=== PATIENT | female | born 1940 | race Caucasian/White ===

== ENCOUNTER → 2018-11-19 13:54 | Outpatient (CLI) | payer MEDICARE, BC, SELFPAY ==
--- NOTE | 2018-11-19 14:01 | ECHOCS_ITS ---
Reason For Study: AFib Procedure This was a 2D Doppler, Color Flow transthoracic echocardiogram. Technically difficult due to arrhythmia. Contrast injection was performed. Exam performed in department. Left Ventricle Normal LV size. Concentric left ventricular hypertrophy. The estimated ejection fraction is 55 %. Normal diastology for age. No regional wall motion abnormalities noted. Right Ventricle Normal RV size. Normal systolic function. Atria The left atrium is mildly enlarged. Normal right atrium. No doppler evidence for ASD. Mitral Valve There is no mitral valve stenosis. Mild (1+) mitral valve insufficiency. Tricuspid Valve No significant tricuspid stenosis. Trivial tricuspid valve insufficiency. Pulmonary artery systolic pressure is 25 mmHg. Aortic Valve Trisinus/trileaflet aortic valve. There is no aortic stenosis. Mild-Moderate (1-2+) aortic valve insufficiency. Pulmonic Valve There is no pulmonic valvular stenosis. Trivial pulmonic valve insufficiency. Great Vessels Normal aortic root. Pericardium/Pleural No pericardial effusion. Medication 22 gauge I.V. with prn adaptor inserted into right arm. Diluted definity 4ml given slow IV push to enhance endocardial definition. MMode/2D Measurements & Calculations LVIDd: 4.8 cm IVSd: 1.3 cm Ao root diam: 3.8 cm LVIDs: 3.1 cm LVPWd: 1.2 cm LA dimension: 4.5 cm FS: 36.1 % LAV(MOD-bp): 68.9 ml LA A4 area: 22.8 cm2 RA A4 area: 20.5 cm2 LAV(MOD-bp) Indexed: 33.2 ml/m2 LAV(MOD-sp2): 57.5 ml LAV(MOD-sp4): 62.8 ml Doppler Measurements & Calculations MV E max leia: 83.6 cm/sec Ao V2 max: 98.1 cm/sec AI max leia: 448.4 cm/sec Ao max P.9 mmHg AI max P.4 mmHg AI dec slope: 227.9 cm/sec2 AI P1/2t: 576.3 msec LV V1 max: 85.7 cm/sec PA V2 max: 81.5 cm/sec TR max leia: 225.8 cm/sec LV V1 max P.0 mmHg TR max P.4 mmHg Interpretation Summary The study was technically difficult. Diluted definity 4ml given slow IV push to enhance endocardial definition. Concentric left ventricular hypertrophy. The estimated ejection fraction is 55 %. Normal diastology for age. Mild-Moderate (1-2+) aortic valve insufficiency. Mild (1+) mitral valve insufficiency. The study was technically difficult. Ordering Physician: Balwinder Au Referring Physician: Balwinder Au Performed By: Jose Flynn RCS
== END ==
PROVIDERS: Family Provider Family Medicine; PCP Family Medicine; Referring Provider Family Medicine; Visit Provider Family Medicine
DX: I48.91 Unspecified atrial fibrillation (principal); R94.31 Abnormal electrocardiogram [ECG] [EKG]
CPT/HCPCS: 93306; Q9957; A4216; C8929

== ENCOUNTER → 2018-12-02 10:40 | Outpatient (CLI) | payer MEDICARE, BC, SELFPAY ==
[2018-12-02 09:46] VITALS: BMI 39.4
== END ==
PROVIDERS: Family Provider Family Medicine; PCP Family Medicine; Referring Provider Internal Medicine Cardiovascular Disease; Visit Provider Internal Medicine Cardiovascular Disease
DX: R03.0 Elevated blood-pressure reading, without diagnosis of hypertension (principal)
CPT/HCPCS: 93788

== ENCOUNTER → 2018-12-03 10:53 | Outpatient (CLI) | payer MEDICARE, BC, SELFPAY ==
[2018-12-02 09:46] VITALS: BMI 39.4
== END ==
PROVIDERS: Family Provider Family Medicine; PCP Family Medicine; Referring Provider Internal Medicine Cardiovascular Disease; Visit Provider Internal Medicine Cardiovascular Disease
DX: I48.91 Unspecified atrial fibrillation (principal)
CPT/HCPCS: 93225; 93226

== ENCOUNTER → 2018-12-14 06:38 | Outpatient (CLI) | payer MEDICARE, BC, SELFPAY ==
[2018-12-02 09:46] VITALS: BMI 39.4
--- NOTE | 2018-12-14 09:52 | STRESSREP_ITS ---
Stress Test Report Pharmacologic myocardial perfusion stress test. 78-year-old lady with a history of coronary artery disease and atrial fibrillation. Medications: Apixaban atorvastatin losartan metoprolol. Resting EKG demonstrates atrial fibrillation with a controlled ventricular response rate of 94 bpm resting blood pressures 134/82 mmHg. 0.4 mg of re gadenoson was infused per usual protocol followed by rapid intravenous saline flush injection continuous EKG monitoring was performed. The patient maintained atrial fibrillation throughout the recording. At rest there were no ST or T wave changes noted suggest abnormal flow reserve at peak infusion nonspecific ST-T wave changes were noted with no meet the criteria for ischemia. No clinical angina was noted. Resting blood pressures 134/82 mmHg final blood pressures 122/72 mmHg. Myocardial perfusion protocol. 11.6 mCi of technetium 99m sestamibi was injected at rest. 0.4 mg of regadenoson was infused per usual protocol peak infusion 34.3 mCi of technetium 99m sestamibi was injected stress images were obtained stress and rest images are reconstructed and compared in the short axis vertical long horizontal long axis. Gated images were also obtained Perfusion SPECT analysis: Review of the stress images demonstrate normal uptake of tracer noted in all areas of the myocardium. The resting images similarly demonstrate normal uptake of tracer noted in all areas of myocardium. No areas of reversibility are noted suggest ischemia no previous infarct is noted. Gated SPECT analysis: The gated ejection fraction is noted to be 61%. Conclusion: Normal pharmacologic myocardial perfusion stress test. Atrial fibrillation noted. Preserved ejection fraction.
== END ==
PROVIDERS: Family Provider Family Medicine; PCP Family Medicine; Referring Provider Internal Medicine Cardiovascular Disease; Visit Provider Internal Medicine Cardiovascular Disease
DX: I48.91 Unspecified atrial fibrillation (principal); I25.10 Atherosclerotic heart disease of native coronary artery without angina pectoris
CPT/HCPCS: 78452; 93017; A9500; A4216; J2785

== ENCOUNTER → 2019-10-25 09:49 | Outpatient (CLI) | payer MEDICARE, BC, SELFPAY ==
[2019-08-03 07:50] VITALS: BMI 37.9
--- NOTE | 2019-10-25 09:56 | CDU_ITS ---
Reason For Study: Syncope Rt. Velocities/BP Lt. Velocities/BP Prox CCA 135.7/11.5 cm/sec. Prox CCA 89.3/11.3 cm/sec. Mid CCA 83.8/9.1 cm/sec. Mid CCA 69.5/13.5 cm/sec. Dist CCA 69.5/11.3 cm/sec. Dist CCA 55.2/11.3 cm/sec. Prox ICA 65.1/11.3 cm/sec. Prox ICA 82.7/16.8 cm/sec. Mid ICA 73.9/11.3 cm/sec. Mid ICA 76.1/20.1 cm/sec. Dist ICA 82.7/17.9 cm/sec. Dist ICA 80.5/16.8 cm/sec. Rt. ICA/CCA = 1.0. Lt. ICA/CCA = 1.2. Prox ECA 77.2/13.5 cm/sec. Prox ECA 79.4/8 cm/sec. Rt. Vert. 62.9/11.3 cm/sec. Lt. Vert. 77.2/14.6 cm/sec. Right Extracranial There is homogeneous, smooth atherosclerotic plaque noted in the right common carotid artery. There is heterogeneous, irregular atherosclerotic plaque noted in the right internal carotid artery. There is intimal thickening but no significant atherosclerotic plaque noted in the right external carotid artery. Antegrade flow is noted in the right vertebral artery. Left Extracranial There is homogeneous, smooth atherosclerotic plaque noted in the left common carotid artery. There is heterogeneous, irregular atherosclerotic plaque noted in the left internal carotid artery. There is intimal thickening but no significant atherosclerotic plaque noted in the left external carotid artery. Antegrade flow is noted in the left vertebral artery. Procedure Carotid Duplex 62499. Exam performed in department. Interpretation Summary Mild (<50%) stenosis right extracranial internal carotid. Mild (<50%) stenosis left extracranial internal carotid. Flow within the vertebral arteries is antegrade bilaterally. Ordering Physician: Balwinder Au Referring Physician: Balwinedr Au Performed By: Rachana Robbins RVT
== END ==
PROVIDERS: PCP Family Medicine; Referring Provider Family Medicine; Visit Provider Family Medicine
DX: I65.23 Occlusion and stenosis of bilateral carotid arteries (principal); R55 Syncope and collapse
CPT/HCPCS: 93880

== ENCOUNTER 2020-01-06 12:12 | Inpatient (IN) | payer MEDICARE, BC, SELFPAY ==
[2019-08-03 07:50] VITALS: BMI 37.9
[2020-01-06] VITALS (9 sets, daily range): BP systolic 138–185; BP diastolic 74–104; PULSE 73–119; RESP 16–18; TEMP 35.6–37.1; O2SAT 94–99; BMI 32.3; BMI 34.0
--- NOTE | 2020-01-06 12:31 | EKG12_ITS ---
Test Reason : DYSRHYTHMIA Blood Pressure : / mmHG Vent. Rate : 096 BPM Atrial Rate : 105 BPM P-R Int : 000 ms QRS Dur : 134 ms QT Int : 390 ms P-R-T Axes : 000 028 -16 degrees QTc Int : 492 ms Atrial fibrillation Right bundle branch block Abnormal ECG Confirmed by HAYDEN LEYVA, FABRICIO ([id number]), desk editor ROSALIND NAZARIO ([id number]) on 01/10/2020 8:13:10 AM Referred By: ROSELYN Confirmed By:FABRICIO BLKAE MD
--- NOTE | 2020-01-06 12:31 | CT_ITS ---
STUDY: CT BRAIN WITHOUT CONTRAST REASON FOR EXAM: Female, 79 years old. SYNCOPE/HEMATOMA ABOVE RT EYE/ON THINNERS RADIATION DOSAGE (If Supplied By Facility): CTDIvol = ( 44.99 ) mGy, DLP = ( 812.98 ) mGycm TECHNIQUE: Transaxial CT imaging of the brain was performed without administration of intravenous contrast material. Individualized dose optimization techniques were used for this CT. COMPARISON: Comparison is made with prior examination dated July 30, 2010. FINDINGS: There is a 2.6 cm x 1.2 cm hematoma overlying the right frontal bone and right orbit. Normal calvarium. There is mild cerebral atrophy with widening of the extra-axial spaces and ventricular dilatation. There are areas of decreased attenuation within the white matter tracts of the supratentorial brain, consistent with microvascular disease changes. Normal basal ganglia and thalami. Normal brainstem. There is mild cerebellar atrophy. There is no intracranial hemorrhage. There are no findings of an acute ischemic infarction. Atherosclerotic calcification of the cavernous portions of the internal carotid arteries as well as the vertebral arteries. Normal visualized paranasal sinuses. CT/Brain/Head without Contrast IMPRESSION: Chronic involutional changes of the brain. 2.6 cm x 1.2 cm hematoma overlying the right frontal bone and right orbital region. Electronically Signed: Sharad Mercer, at 13:36 EDT , Service support ,
--- NOTE | 2020-01-06 12:54 | ED.VIS.GEN ---
History of Present Illness Chief Complaint: Syncope Narrative: Patient presenting for evaluation secondary to a syncopal episode. Patient has a underlying history of A. fib, she is on Eliquis for anticoagulation. Patient states that she was at the grocery store and was getting close to being finished checking out. She started to feel flushed, and then passed out. She did hit her head, she is unsure if it was the head injury that caused her loss of consciousness or syncope. She currently denies that she has any visual changes numbness weakness nausea or vomiting. She has a large hematoma over the right forehead. Patient denies that there is any preceding chest pain palpitations shortness of breath. Patient does note that she missed her doses of her morning medications today. She denies recent infectious signs or symptoms such as fever cough nausea vomiting or diarrhea. Review of systems otherwise negative. Past Medical History - Allergies and Home Meds Allergies/Adverse Reactions: Allergies Penicillins Adverse Reaction (Verified 01/06/20 12:15) Unknown Primary Care Physician: Balwinder Au MD [Primary Care Provider] - Prior records reviewed: Yes Past Medical History: - - Atrial fibrillation, aortic insufficiency, hypertension, hyperlipidemia Lives: Spouse/ Significant Other Smoking Status: Never smoker Alcohol: None Drugs: None Review of Systems All systems negative except as indicated General: Denies: Chills, Fever, Sweats Eyes: Denies: Visual changes - bilaterally, Diplopia ENT: Denies: Rhinorrhea, Sore throat Cardiovascular: Reports: - - Syncope Respiratory: Denies: Dyspnea, Cough, Dyspnea on exertion Gastrointestinal: Denies: Abdominal pain, Nausea, Vomiting, Diarrhea, Melena, Hematochezia Genitourinary: Denies: Dysuria, Hematuria, Frequency Musculoskeletal: Denies: Back pain, Extremity Pain Skin: Denies: Rash, Wounds Neurological: Reports: Headache Physical Exam Vital Signs/Narrative: Vital Signs Temp Pulse Resp BP Pulse Ox 01/06/20 12:13 96.1 F L 80 18 157/96 H 99 Inital Vital Signs reviewed: Yes General: Well nourished, Well developed, Obese, No Acute Distress Head: Normocephalic, - - Left forehead hematoma noted with bruising, no underlying depressed skull fracture is noted. PRL, EOMI no entrapment. No hyphema. Eyes: Perrl, EOMI ENT: Moist mucous membranes, No rhinorrhea Neck: Supple, Nontender Cardiovascular: Regular rate, No murmurs, Irregular, - - 2+ radial pulses bilaterally symmetric Respiratory: No distress, CTA bilaterally, Chest nontender Abdomen: Soft, Nontender, Nondistended, Normal bowel sounds Back: Nontender, Normal Inspection Extremities: Nontender, No edema Skin: Normal color, No rash Neurological: Alert, Oriented x3, Cranial nerves II-XII grossly intact, Normal Strength, Normal Sensation Psychological: Normal affect, Normal Mood Diagnostic/Tx/Re-eval Clinical Impression(s) from Imaging Studies Brain CT 01/06/20 12:31 IMPRESSION: Chronic involutional changes of the brain. 2.6 cm x 1.2 cm hematoma overlying the right frontal bone and right orbital region. Electronically Signed: Sharad Mercer, at 13:36 EDT , Service support , Chest X-Ray 01/06/20 13:15 IMPRESSION: Mild cardiomegaly. No acute abnormalities. Electronically Signed: Sharad Mercer, at 13:53 EDT , Service support , Laboratory Data 01/06/20 01/06/20 01/06/20 13:00 13:00 13:00 WBC 14.0 H RBC 4.63 Hgb 12.3 Hct 40.5 MCV 87.5 MCH 26.6 L MCHC 30.4 L RDW Std Deviation 52.6 H RDW Coeff of Stacey 16.6 H Plt Count 467 H MPV 9.4 Immature Gran % (Auto) 0.500 Neut % (Auto) 84.4 H Lymph % (Auto) 8.0 L [place] % (Auto) 6.1 Eos % (Auto) 0.4 Baso % (Auto) 0.6 Absolute Neuts (auto) 11.8 H Absolute Lymphs (auto) 1.12 Nucleated RBC % 0 PT 16.0 H INR 1.3 APTT 29.3 Sodium 138 Potassium 4.7 Chloride 107 Carbon Dioxide 25.0 Anion Gap 6 BUN 23 H Creatinine 1.05 H Estim Creat Clear Calc 40.00 Est GFR (MDRD) Af Amer 65 Est GFR (MDRD) Non-Af 54 L BUN/Creatinine Ratio 21.9 H Glucose 166 H Calcium 9.9 Troponin I < 0.015 - EKG Initial EKG Interpretation: - - Atrial fibrillation with a ventricular rate of 96. Right bundle branch block morphology is noted, no evidence of acute ST segment changes or T wave changes, no changes from prior EKG in 2019. - Medical Decision Making Patient presented secondary to a syncopal episode. EKG demonstrates atrial fibrillation with a right bundle branch block that is old, no evidence of acute changes. PA and lateral chest x-ray by my personal review as well as radiology demonstrates mild cardiomegaly no evidence of acute pathology. CT imaging of the brain per radiology found to be negative. CBC demonstrates leukocytosis of 14, chemistry unremarkable troponin was found to be negative. Patient is not low risk per the [place] syncope score, I believe that she requires admission for observation. Patient will be admitted under the hospitalist. ED Disposition - Plan for ED Patient: Disposition: Acute Care Hospital [facility] Diagnosis: Syncope, Atrial fibrillation
--- NOTE | 2020-01-06 13:15 | RAD_ITS ---
STUDY: X-RAY CHEST REASON FOR EXAM: Female, 79 years old. Pt states she fainted and hit head, dizziness, takes HBP medication TECHNIQUE: PA and lateral views of the chest. COMPARISON: None. FINDINGS: EKG electrodes are seen. The lungs are clear and expanded. There is no demonstrated pleural abnormality. There is mild cardiac enlargement. Normal mediastinum and farnaz. Normal visualized pulmonary arteries. There is atherosclerotic tortuosity of the aortic arch and descending thoracic aorta. There are diffuse degenerative changes of the visualized thoracic spine. Normal visualized ribs, clavicles, and shoulders. There is no demonstrated abnormality of the visualized soft tissue structures of the upper abdomen. RAD/Chest PA and Lateral IMPRESSION: Mild cardiomegaly. No acute abnormalities. Electronically Signed: Sharad Mercer, at 13:53 EDT , Service support ,
[2020-01-06 13:22] LABS: Absolute Lymphocyte Count 1.12 X10^3/uL (0.83-4.51); Absolute Neutrophil Count 11.8 X10^3/uL (2.0-7.7); Basophil# 0.08 X10^3/uL; Basophil% 0.6 % (0-1); Eosinophil# 0.06 X10^3/uL; Eosinophils% 0.4 % (0-5); Hematocrit 40.5 % (37-47); Hemoglobin 12.3 g/dL (12.0-15.0); Lymphocyte # 1.12 X10^3/ul (4.0); Mean Corp Hgb Conc 30.4 g/dL (32-36); Mean Corpuscular Hgb 26.6 pg (27.0-32.0); Mean Corpuscular Volume 87.5 fL (81-99); Mean Platelet Vol. 9.4 fl (6.2-12.0); Monocyte# 0.85 X10^3/uL; Monocyte% 6.1 % (0-10); NRBC Flagged by Analyzer 0 % (0-5); Neutrophil # 11.81 X10^3/uL (2.7-7.7); Neutrophil % 84.4 % (47-70); Platelet Count 467 K/mm3 (150-450); RBC Distribution Width CV 16.6 % (11.6-14.6); RBC Distribution Width SD 52.6 fl (35.1-43.9); Red Blood Count 4.63 M/mm3 (4.2-5.4)
[2020-01-06 13:32] LABS: International Normalized Ratio 1.3; Partial Thromboplast Time 29.3 Seconds (24.1-36.2)
[2020-01-06 13:40] LABS: Anion Gap 6 (5-15); BUN 23 mg/dL (7-18); BUN/Creat Ratio 21.9 RATIO (10-20); Calcium,Total 9.9 mg/dL (8.5-10.1); Chloride 107 mmol/L (98-107); Creatinine, Serum 1.05 mg/dL (0.55-1.02); EST Glomerular Filtration Rate 54 mL/min (>60); Est Glom Filt Rate - Afr Amer 65 mL/min (>60); Glucose 166 mg/dL (74-106); Potassium 4.7 mmol/L (3.5-5.1); Sodium Level 138 mmol/L (136-145)
[2020-01-06] MEDS: Losartan Potassium 100 MG Tablet PO ×2 (14:44→19:11)
[2020-01-06] MEDS: Metoprolol(XL)Succ 25 MG Tablet PO ×2 (14:44→19:11)
--- NOTE | 2020-01-06 14:54 | HP.PCM_ITS ---
History of Present Illness Date of Admission: 01/06/20 Chief Complaint: syncope The patient is a 79 year old F presents with syncope. She was at the grocery store when she felt hot then passed out. She struck her head. She states that she did not eat any breakfast this morning nor have any of her medications. This happened around 10:30 AM. Patient states that she has had other syncopal episodes that were similar circumstances where she did not eat breakfast nor have any of her medications. Usually patient is having breakfast and taking her medications in the morning. States that she has been feeling fine otherwise. Patient did have a CAT scan that showed no intracranial process. Patient does have a hematoma over her right forehead. [] Past Medical History Past Medical History (Chronic Problems): Chronic Problems (Last Reviewed 08/03/19 @ 10:08 by Collin Garnett NP-C) New onset atrial fibrillation (Chronic 10/2018) Nonrheumatic aortic (valve) insufficiency (Chronic) Essential (primary) hypertension (Chronic) Hyperlipidemia (Chronic) Medical History: Medical History (Last Reviewed 01/06/20 @ 14:[address] Bautista Lucas, DO) New onset atrial fibrillation (Chronic) Onset Date: 10/2018 I48.91 Nonrheumatic aortic (valve) insufficiency (Chronic) I35.1 Essential (primary) hypertension (Chronic) I10 Hyperlipidemia (Chronic) E78.5 History of breast cancer (Resolved) Z85.3 Chemo Class 2 severe obesity due to excess calories with serious comorbidity and body mass index (BMI) of 35.0 to 35.9 in adult E66.01, Z68.35 Frequent falls R29.6 GERD (gastroesophageal reflux disease) K21.9 Type 2 diabetes mellitus E11.9 Allergies Penicillins Adverse Reaction (Verified 01/06/20 12:15) Unknown Home Medications: Ambulatory Orders Medication Instructions Recorded apixaban 5 mg tablet 5 mg PO BID 11/30/18 atorvastatin 20 mg tablet 20 mg PO QHS 11/30/18 glipizide 5 mg tablet, extended 5 mg PO DAILY 11/30/18 release 24 hr magnesium oxide 400 mg PO DAILY cap 11/30/18 metformin 500 mg tablet,extended 500 mg PO BID tab 11/30/18 release 24hr ranitidine HCl 300 mg capsule 300 mg PO QHS 11/30/18 losartan 100 mg tablet 100 mg PO DAILY #30 tab 12/14/18 metoprolol succinate 25 mg 25 mg PO DAILY #30 tab 12/14/18 tablet,extended release 24 hr Surgical History: Surgical History (Last Reviewed 01/06/20 @ 14:[address] Bautista Lucas, DO) History of mastectomy Z90.10 Hx of cholecystectomy Z90.49 Lives: Spouse/ Significant Other Smoking Status: Never smoker Alcohol: None Drugs: None - *Family History Maternal History Items: - - No heart disease Review of Systems Constitutional: Denies: Anorexia, Chills, Fever, Night Sweats Eyes: Denies: Blurred vision, Double vision HEENT: Denies: Head Aches, Sinus Congestion, Sinus Drainage Cardiovascular: Denies: Chest Pain, Palpitations Respiratory: Denies: Cough, Shortness of breath at rest, Sputum production Gastrointestinal: Denies: Abdominal Pain, Nausea, Vomiting Genitourinary: Denies: Dysuria Musculoskeletal: Denies: Joint Pain, Joint Tenderness Skin: Denies: Dryness, Jaundice Neurological: Denies: Balance problems, Change in Speech Psychiatric: Denies: Anxiety, Depression Comment: All review of systems were negative except as mentioned above in the history of present illness and the other review of systems. VTE Information - Inpt Only VTE Present on Admission: No VTE Mechan Device Prophylaxis: None VTE Pharm Prophylaxis ordered?: No Reason prophylaxis not ordered:: Treatment Not Indicated Patient Problems: Active and Suspected Problems (Last Reviewed 08/03/19 @ 10:08 by Collin Garnett [employer] INSTRUCTOR-C) Syncope (Acute) Atrial fibrillation (Acute) - Physical Exam Vitals/I&O's: Vital Signs Temp Pulse Resp BP Pulse Ox 36.6 C 109 H 18 173/104 H 94 01/06/20 14:46 01/06/20 14:46 01/06/20 14:46 01/06/20 14:46 01/06/20 14:46 Oxygen Delivery Method Room Air Weight: 90.718 kg Body Mass Index (BMI) 32.3 General: Alert, Cooperative, No apparent distress, Well developed, Well nourished HEENT: PERRLA, EOMI, - - Large hematoma over her right eye. Some subtle abrasions. No laceration. Oral: Moist Mucosa, No Gingival or Mucosal Lesions/ Ulcerations Neck: No Nodes, Thyroid Normal Size and Texture Lungs: Clear to auscultation, Normal air movement, No rhonchi, No wheeze, No rales Cardiovascular: Regular rate, Regular Rhythm, Normal S1, Normal S2, No murmurs Abdomen: Bowel Sounds Present, Soft, Non Tender, Non-Distended, No Hepato- splenomegaly Extremities: No edema, No Calf Tenderness Skin: - - Hematoma over the right eye. Superficial abrasions. Musculoskeletal: No Tenderness to Palpation of Joints or Extremities, No Muscle Wasting Neurological: Cranial nerves II-XII grossly intact, Neuro grossly intact, Motor Exam 5/5 strength throughout Psych/Mental Status: Normal Affect, Appropriate Laboratory Results 01/06/20 13:00: WBC 14.0 H, RBC 4.63, Hgb 12.3, Hct 40.5, MCV 87.5, MCH 26.6 L, MCHC 30.4 L, RDW Std Deviation 52.6 H, RDW Coeff of Stacey 16.6 H, Plt Count 467 H, MPV 9.4, Immature Gran % (Auto) 0.500, Neut % (Auto) 84.4 H, Lymph % (Auto) 8.0 L, [place] % (Auto) 6.1, Eos % (Auto) 0.4, Baso % (Auto) 0.6, Absolute Neuts (auto) 11.8 H, Absolute Lymphs (auto) 1.12, Nucleated RBC % 0 01/06/20 13:00: PT 16.0 H, INR 1.3, APTT 29.3 01/06/20 13:00: Sodium 138, Potassium 4.7, Chloride 107, Carbon Dioxide 25.0, Anion Gap 6, BUN 23 H, Creatinine 1.05 H, Estim Creat Clear Calc 40.00, Est GFR (MDRD) Af Amer 65, Est GFR (MDRD) Non-Af 54 L, BUN/Creatinine Ratio 21.9 H, Glucose 166 H, Calcium 9.9, Troponin I < 0.015 EKG reviewed and showed afib with RVR with an incomplete right bundle branch block. Clinical Impression(s) from Imaging Studies Brain CT 01/06/20 12:31 IMPRESSION: Chronic involutional changes of the brain. 2.6 cm x 1.2 cm hematoma overlying the right frontal bone and right orbital region. Electronically Signed: Sharad Mercer, at 13:36 EDT , Service support , Chest X-Ray 01/06/20 13:15 IMPRESSION: Mild cardiomegaly. No acute abnormalities. Electronically Signed: Sharad Mercer, at 13:53 EDT , Service support , Assessment/Plan All Active Problems (Last Reviewed 08/03/19 @ 10:08 by Collin Garnett, AVIS-C) Syncope (Acute) Atrial fibrillation (Acute) History of breast cancer (Resolved) 1. Syncope: [place] to be vasovagal. Perhaps related with patient not having eaten breakfast this morning and perhaps with her not taking her medications. Plan is to monitor her overnight, check an echocardiogram, check orthostatic vital signs. If all is unremarkable then feel the patient could be discharged on the . 2. Right forehead hematoma: Status post syncope. Patient on apixaban for A. fib. They will be held and I recommend holding that for 48hours. Patient advised that the ecchymosis will start to shift and may start going down her face. No indication for evacuation at this time. 3. A. fib: Currently in rapid rate. Patient to receive her metoprolol in the emergency room. Monitor. 4. Diabetes mellitus type 2: Continue with metformin and glipizide. 5. VTE prophylaxis: Observation status and therefore not indicated at this time. 6. Advanced care planning: Discussed with the patient. Patient wishes to be DNR Comfort Care arrest. OBSV E&M: 95136 Initial observation care L3
--- NOTE | 2020-01-06 15:23 | ECHOCS_ITS ---
Reason For Study: Syncope Procedure This was a 2D Doppler, Color Flow transthoracic echocardiogram. The study was technically difficult. Contrast injection was performed. No Strain analysis due to needed use of Definity. Exam performed portable in patient room. Left Ventricle Normal LV size. Moderate concentric left ventricular hypertrophy. The estimated ejection fraction is 60 %. Left ventricular systolic function is normal. Stage 2 diastolic dysfunction. No regional wall motion abnormalities noted. Right Ventricle Normal RV size. Normal systolic function. Atria Normal left atrium. Normal right atrium. Mitral Valve Normal mitral valve. Mild (1+) mitral valve insufficiency. Tricuspid Valve Normal tricuspid valve. Mild (1+) tricuspid valve insufficiency. Pulmonary artery systolic pressure is 30 mmHg. Aortic Valve Trisinus/trileaflet aortic valve. Mild (1+) aortic valve insufficiency. Great Vessels Normal aortic root. The pulmonary artery is normal size. Normal inferior vena cava. Pericardium/Pleural No pericardial effusion. Medication Diluted definity 3ml given slow IV push to enhance endocardial definition. MMode/2D Measurements & Calculations LVIDd: 4.9 cm IVSd: 1.5 cm Ao root diam: 3.9 cm LVIDs: 3.4 cm LVPWd: 1.4 cm LA dimension: 4.2 cm FS: 30.1 % LAV(MOD-bp): 61.6 ml LA A4 area: 18.6 cm2 RA A4 area: 19.0 cm2 LAV(MOD-bp) Indexed: 30.8 ml/m2 LAV(MOD-sp2): 67.2 ml LAV(MOD-sp4): 56.3 ml Time Measurements MV dec time: 0.20 sec Doppler Measurements & Calculations MV E max gilles: 73.6 cm/sec Lat Peak E' Gilles: 9.3 cm/sec Med Peak E' Gilles: 7.7 cm/sec MV A max gilles: 37.7 cm/sec E/E' lat: 7.9 E/E' med: 9.5 MV E/A: 1.9 MV V2 max: 80.9 cm/sec MV P1/2t max gilles: 80.2 cm/sec Ao V2 max: 86.6 cm/sec MV max P.6 mmHg MV P1/2t: 79.3 msec Ao max P.0 mmHg MV V2 mean: 40.8 cm/sec MV dec slope: 296.3 cm/sec2 MV mean P.81 mmHg MVA(P1/2t): 2.8 cm2 MV V2 VTI: 18.8 cm AI max gilles: 392.1 cm/sec LV V1 max: 84.0 cm/sec PA V2 max: 112.7 cm/sec AI max P.5 mmHg LV V1 max P.8 mmHg AI dec slope: 243.5 cm/sec2 AI P1/2t: 471.8 msec TR max gilles: 255.1 cm/sec TR max P.0 mmHg Interpretation Summary Normal LV size. Moderate concentric left ventricular hypertrophy. The estimated ejection fraction is 60 %. Left ventricular systolic function is normal. Stage 2 diastolic dysfunction. Mild (1+) aortic valve insufficiency. Mild (1+) mitral valve insufficiency. Contrast injection was performed. Ordering Physician: Bautista Lucas Referring Physician: Balwinder Au Performed By: Jose Flynn RCS
--- NOTE | 2020-01-06 17:13 | NURSING ---
Unable to complete standing orthostatic bp. Patient became lightheaded.
[2020-01-06] MEDS: metFORMIN HCl 500 MG Tablet PO (17:26)
[2020-01-06] MEDS: Magnesium Oxide 400 MG Tablet PO (19:10)
--- NOTE | 2020-01-06 19:14 | NURSING ---
Refused ice to right orbital area.
[2020-01-06] MEDS: Famotidine 20 MG Tablet 40 MG PO (21:01)
[2020-01-06] MEDS: Atorvastatin Calcium 20 MG Tablet PO (21:01)
[2020-01-07] VITALS (12 sets, daily range): BP systolic 85–162; BP diastolic 63–90; PULSE 75–108; RESP 14–18; TEMP 36.6–36.8; O2SAT 94–97
[2020-01-07 06:19] LABS: Absolute Lymphocyte Count 1.69 X10^3/uL (0.83-4.51); Absolute Neutrophil Count 8.4 X10^3/uL (2.0-7.7); Basophil# 0.08 X10^3/uL; Basophil% 0.7 % (0-1); Eosinophil# 0.19 X10^3/uL; Eosinophils% 1.7 % (0-5); Hematocrit 35.3 % (37-47); Hemoglobin 10.8 g/dL (12.0-15.0); Lymphocyte # 1.69 X10^3/ul (4.0); Lymphocyte % 14.7 % (19-41); Mean Corp Hgb Conc 30.6 g/dL (32-36); Mean Corpuscular Hgb 26.8 pg (27.0-32.0); Mean Corpuscular Volume 87.6 fL (81-99); Mean Platelet Vol. 9.1 fl (6.2-12.0); Monocyte# 1.08 X10^3/uL; Monocyte% 9.4 % (0-10); NRBC Flagged by Analyzer 0 % (0-5); Neutrophil # 8.43 X10^3/uL (2.7-7.7); Neutrophil % 73.2 % (47-70); Platelet Count 418 K/mm3 (150-450); RBC Distribution Width CV 16.8 % (11.6-14.6); Red Blood Count 4.03 M/mm3 (4.2-5.4); White Blood Count 11.5 K/mm3 (4.4-11.0)
[2020-01-07 06:46] LABS: Bedside Glucose 149 mg/dL (70-110)
[2020-01-07] MEDS: metFORMIN HCl 500 MG Tablet PO ×2 (09:20→17:09)
[2020-01-07] MEDS: glipiZIDE XL 5 MG Tablet PO (09:20)
[2020-01-07] MEDS: Losartan Potassium 100 MG Tablet PO (09:21)
[2020-01-07] MEDS: 0.9% Saline Lock 10 ML Syringe IV (09:21)
[2020-01-07] MEDS: Metoprolol(XL)Succ 25 MG Tablet PO (09:21)
[2020-01-07] MEDS: Magnesium Oxide 400 MG Tablet PO (09:21)
[2020-01-07] MEDS: 0.9% Normal Saline 1,000 ML 100 ML IV ×2 (09:30→19:21)
--- NOTE | 2020-01-07 11:00 | CASEMGMT ---
RN CM JEWELER APPRENTICE CM to room to meet with patient for initial transition planning/care coordination assessment. THOMAS REED introduced self and role at [facility]. Pt voices understanding and consents to assessment at this time. Pt resting in bed in no distress at this time. Pt is A/O at this time and answers all questions appropriately. Care providers, pharmacy, and demographics verified/updated at this time. PCP: Dr Au Specialists: Dr Yeung--cardiology Preferred Pharmacy: [facility] Pres[facility] Benef[facility]: None Living Will/HPOA: Does not have either. LNOK: daughter, Miguelina. Son, Balwinder Living Arrangements: Lives alone in 2-story home w/2 steps to enter. FFSU. Independent w/ADL's and IADL's. 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 Transportation: Pt drives. Daughter will take her home @ discharge. DME: States has the following DME: cane--uses as needed, walker--has but does not use, rails/grab bars, hand held shower, medical alert button, glucometer (has but states does not use it) Pt states no need for further DME at this time. HHC/SNF: No history of either. Pt wishes to return home and states has no concerns with going home at time of discharge. Discussed therapy options and pt states may be interested in OP therapy, most likely @ [facility], but she is not sure she wants to go. Pt states she may have some difficulty getting in/out of her truck. Pt made aware of [facility] Van transportation services to [facility] and given their info/contact number. Pt also given script for OP therapy at this time and made aware she can take to any OP therapy/location of her choice if she does decide to go. Pt voices understanding/appreciation. CM to follow for home oxygen needs and any further discharge planning/needs. Pt voices no further concerns/needs at this time. Advised pt to ask for CM if any further questions/concerns/needs arise. Voices understanding. PLAN: Home w/possible OP therapy. She has been given a script. No prescription coverage. Follow for cost of meds @ d/c. Mel MCDUFFIE RN, CM
--- NOTE | 2020-01-07 13:24 | PCM.PN.HOSP ---
<Toribio Dumont - Last Filed: 01/07/20 13:24> Patient Problems: Active and Suspected Problems (Last Reviewed 01/06/20 @ 14:[address] Bautista Lucas DO) Syncope (Acute) Atrial fibrillation (Acute) Reason for Visit: Syncope Subjective: Patient resting comfortably in bed, eating breakfast, no acute issues, tolerating p.o. intake. No fevers or chills. No nausea vomiting or diarrhea. Patient states that she has been doing well lately despite her syncopal episode. She has had similar syncopal episodes in the past when she did not eat or take her morning medications. She has no complaints of palpitations, lightheadedness, dizziness, chest pain, lower extremity edema. Vitals/I&O's: Vital Signs Temp Pulse Resp BP Pulse Ox 97.9 F 84 18 162/80 H 96 01/07/20 09:19 01/07/20 11:03 01/07/20 09:19 01/07/20 09:21 01/07/20 09:19 Oxygen Delivery Method Room Air Weight: 210 lb 12.8 oz Body Mass Index (BMI) 34.0 Orthostatic Vital Signs Start: 01/06/20 16:07 Freq: q24h Status: Active Protocol: Activity Type Activity Date Activity User E-Sign Co-Sign Detail Recorded Client Recorded Date Recorded By Document 01/07/20 03:08 DAVIAN [id number] 01/07/20 03:09 DAVIAN 01/07/20 03:08 Orthostatic Vitals Standing -Blood Pressure (90/60-120/80) 85/63 L -Extremity Use Right Arm -Pulse Rate (60-100) 105 H Sitting -Blood Pressure (90/60-120/80) 158/81 H -Extremity Use Right Arm -Pulse Rate (60-100) 91 Lying -Blood Pressure (90/60-120/80) 131/77 H -Extremity Use Right Arm -Pulse Rate (60-100) 75 Intake and Output for Last 24 Hours 01/05/20 01/06/20 01/07/20 23:59 23:59 23:59 Intake Total 360 / 360 240 / 240 Balance 360 / 360 240 / 240 General: Alert, Oriented x3, Cooperative HEENT: Atraumatic, PERRLA, EOMI, Normocephalic Neck: Supple, No JVD, Negative Carotid Bruits Lungs: Clear to auscultation, Normal air movement Cardiovascular: Regular rate, No murmurs Abdomen: Bowel Sounds Present, Soft, Non Tender Extremities: No edema, Capillary Refill Less than 3 Seconds, - - Bilateral lower extremity varicose veins, diffuse. Skin: No rashes, No breakdown Musculoskeletal: No Tenderness to Palpation of Joints or Extremities Neurological: Cranial nerves II-XII grossly intact Psych/Mental Status: Normal Affect, Appropriate, Alert and oriented to time, place, person, mood and affect Laboratory Results 01/06/20 13:00: PT 16.0 H, INR 1.3, APTT 29.3 01/06/20 13:00: Sodium 138, Potassium 4.7, Chloride 107, Carbon Dioxide 25.0, Anion Gap 6, BUN 23 H, Creatinine 1.05 H, Estim Creat Clear Calc 40.00, Est GFR (MDRD) Af Amer 65, Est GFR (MDRD) Non-Af 54 L, BUN/Creatinine Ratio 21.9 H, Glucose 166 H, Calcium 9.9, Troponin I < 0.015 01/06/20 16:15: Troponin I < 0.015 01/06/20 19:00: Troponin I < 0.015 01/07/20 05:50: WBC 11.5 H, RBC 4.03 L, Hgb 10.8 L, Hct 35.3 L, MCV 87.6, MCH 26.8 L, MCHC 30.6 L, RDW Std Deviation 53.0 H, RDW Coeff of Stacey 16.8 H, Plt Count 418, MPV 9.1, Immature Gran % (Auto) 0.300, Neut % (Auto) 73.2 H, Lymph % (Auto) 14.7 L, [place] % (Auto) 9.4, Eos % (Auto) 1.7, Baso % (Auto) 0.7, Absolute Neuts (auto) 8.4 H, Absolute Lymphs (auto) 1.69, Nucleated RBC % 0 01/07/20 05:55: POC Glucose 149 H Current Medications Acetaminophen (Tylenol) 650 mg PO Q6H PRN PRN PRN Reason: Pain Score 1-10/Temp > 100.7 F Atorvastatin Calcium (Lipitor) 20 mg PO QHS [facility] Last Admin: 01/06/20 21:01 Dose: 20 mg Documented by: Dextrose (D50w Syringe) 0 gm IV X1 PRN; Protocol PRN Reason: Hypoglycemia Famotidine (Pepcid) 40 mg PO QHS [facility] Last Admin: 01/06/20 21:01 Dose: 40 mg Documented by: Glipizide (Glucotrol Xl) 5 mg PO DAILYCM [facility] Last Admin: 01/07/20 09:20 Dose: 5 mg Documented by: Glucagon () 1 mg IM .X1 PRN PRN Reason: Hypoglycemia Sodium Chloride () 1,000 mls @ 100 mls/hr IV .Q10H [facility] Last Admin: 01/07/20 09:30 Dose: 100 mls/hr Documented by: Losartan Potassium (Cozaar) 100 mg PO DAILY [facility] Last Admin: 01/07/20 09:21 Dose: 100 mg Documented by: Magnesium Oxide (Mag-Ox 400) 400 mg PO DAILY [facility] Last Admin: 01/07/20 09:21 Dose: 400 mg Documented by: Metformin [facility] (Glucophage) [facility] Last Admin: 01/07/20 09:20 Dose: 500 mg Documented by: Metoprolol Succinate (Toprol Xl (Beta Gerard)) 25 mg PO DAILY [facility] Last Admin: 01/07/20 09:21 Dose: 25 mg Documented by: Sodium Chloride () 10 - 40 ml IV UD PRN PRN Reason: SALINE FLUSH Last Admin: 01/07/20 09:21 Dose: 10 ml Documented by: STROKE Vital Signs/Narrative: Vital Signs Pulse 01/07/20 11:03 84 Medical Necessity - Tobacco Use Smoking Status: Never smoker Assessment/Plan All Active Problems (Last Reviewed 01/06/20 @ 14:[address] Bautista Lucas, DO) Syncope (Acute) Atrial fibrillation (Acute) 1. Syncope-vasovagal. Marked orthostatic hypotension. Mildly elevated BUN and creatinine. Provide IV fluids. Recheck or this. Provide ALLEN hoses. BMP in a.m. Troponin negative x3. Mild leukocytosis, no evidence of active infection. CT brain with right frontal hematoma, chronic involutional changes. Chest x-ray with mild cardiomegaly. She has significant resting hypertension so I do not feel that decreasing her blood pressure regimen would be warranted at this time. -Echocardiogram demonstrates normal LV size, moderate LVH, EF of 60%, normal LV systolic function, stage II diastolic dysfunction, 1+ LEONORA, 1+ MVI. 2. Type 2 diabetes mellitus-continue glipizide, metformin held. 3. GERD-Pepcid 4. Hypertension-as above, continue home regimen. DVT prophylaxis: SCDs. defer lovenox with significant facial hematoma. Discharge planning: PT SHE aparicio's, likely home in the morning, recheck orthostatic vitals prior to discharge. This patient was seen by Toribio Dumont PA-C under the supervision of Doctor Seema. <Renny Stephenson E - Last Filed: 01/07/20 13:38> Vitals/I&O's: Vital Signs Temp Pulse Resp BP Pulse Ox 97.9 F 84 18 162/80 H 96 01/07/20 09:19 01/07/20 11:03 01/07/20 09:19 01/07/20 09:21 01/07/20 09:19 Oxygen Delivery Method Room Air Weight: 210 lb 12.8 oz Body Mass Index (BMI) 34.0 Orthostatic Vital Signs Start: 01/06/20 16:07 Freq: q24h Status: Active Protocol: Activity Type Activity Date Activity User E-Sign Co-Sign Detail Recorded Client Recorded Date Recorded By Document 01/07/20 03:08 DAVIAN [id number] 01/07/20 03:09 DAVIAN 01/07/20 03:08 Orthostatic Vitals Standing -Blood Pressure (90/60-120/80) 85/63 L -Extremity Use Right Arm -Pulse Rate (60-100) 105 H Sitting -Blood Pressure (90/60-120/80) 158/81 H -Extremity Use Right Arm -Pulse Rate (60-100) 91 Lying -Blood Pressure (90/60-120/80) 131/77 H -Extremity Use Right Arm -Pulse Rate (60-100) 75 Intake and Output for Last 24 Hours 01/05/20 01/06/20 01/07/20 23:59 23:59 23:59 Intake Total 360 / 360 240 / 240 Balance 360 / 360 240 / 240 Laboratory Results 01/06/20 13:00: Sodium 138, Potassium 4.7, Chloride 107, Carbon Dioxide 25.0, Anion Gap 6, BUN 23 H, Creatinine 1.05 H, Estim Creat Clear Calc 40.00, Est GFR (MDRD) Af Amer 65, Est GFR (MDRD) Non-Af 54 L, BUN/Creatinine Ratio 21.9 H, Glucose 166 H, Calcium 9.9, Troponin I < 0.015 01/06/20 16:15: Troponin I < 0.015 01/06/20 19:00: Troponin I < 0.015 01/07/20 05:50: WBC 11.5 H, RBC 4.03 L, Hgb 10.8 L, Hct 35.3 L, MCV 87.6, MCH 26.8 L, MCHC 30.6 L, RDW Std Deviation 53.0 H, RDW Coeff of Stacey 16.8 H, Plt Count 418, MPV 9.1, Immature Gran % (Auto) 0.300, Neut % (Auto) 73.2 H, Lymph % (Auto) 14.7 L, [place] % (Auto) 9.4, Eos % (Auto) 1.7, Baso % (Auto) 0.7, Absolute Neuts (auto) 8.4 H, Absolute Lymphs (auto) 1.69, Nucleated RBC % 0 01/07/20 05:55: POC Glucose 149 H Current Medications Acetaminophen (Tylenol) 650 mg PO Q6H PRN PRN PRN Reason: Pain Score 1-10/Temp > 100.7 F Atorvastatin Calcium (Lipitor) 20 mg PO QHS [facility] Last Admin: 01/06/20 21:01 Dose: 20 mg Documented by: Dextrose (D50w Syringe) 0 gm IV X1 PRN; Protocol PRN Reason: Hypoglycemia Famotidine (Pepcid) 40 mg PO QHS [facility] Last Admin: 01/06/20 21:01 Dose: 40 mg Documented by: Glipizide (Gl[facility]otrol Xl) [facility] Last Admin: 01/07/20 09:20 Dose: 5 mg Documented by: Glucagon () 1 mg IM .X1 PRN PRN Reason: Hypoglycemia Sodium Chloride () 1,000 mls @ 100 mls/hr IV .Q10H [facility] Last Admin: 01/07/20 09:30 Dose: 100 mls/hr Documented by: Losartan Potassium (Cozaar) 100 mg PO DAILY [facility] Last Admin: 01/07/20 09:21 Dose: 100 mg Documented by: Magnesium Oxide (Mag-Ox 400) 400 mg PO DAILY [facility] Last Admin: 01/07/20 09:21 Dose: 400 mg Documented by: Metformin HCl (Glucophage) 500 mg PO BIDCM [facility] Last Admin: 01/07/20 09:20 Dose: 500 mg Documented by: Metoprolol Succinate (Toprol Xl (Beta Gerard)) 25 mg PO DAILY [facility] Last Admin: 01/07/20 09:21 Dose: 25 mg Documented by: Sodium Chloride () 10 - 40 ml IV UD PRN PRN Reason: SALINE FLUSH Last Admin: 01/07/20 09:21 Dose: 10 ml Documented by: STROKE Vital Signs/Narrative: Vital Signs Pulse 01/07/20 11:03 84 Assessment/Plan Hospitalist note: I am seeing this patient in conjunction with Toribio Dumont. I independently seen and examined the patient. Progress note above, laboratory data and imaging studies reviewed and I concur with above treatment plan. Today, patient denies any complaints. Denied vision change, headache, dizziness or lightheadedness. She denied chest pain or shortness of breath. Her orthostatic vitals reviewed, blood pressure dropped significantly other vital signs are stable. - Physical Exam General: Alert, Oriented x3, Cooperative, No apparent distress. HEENT:traumatic, ecchymosis and bruises around the right eye, PERRLA, EOMI. Neck: Supple, No JVD, Negative Carotid Bruits, Trachea Midline, Thyroid Normal. Lungs: Clear to auscultation, Normal air movement, No rhonchi, No wheeze, No rales. Cardiovascular: irregular rate and rhythm, Normal S1, Normal S2, PMI Normal. Abdomen: Bowel Sounds Present, Soft, Non Tender, Non-Distended, No Hepato-splenomegaly. Extremities: No clubbing, No cyanosis, No edema Skin: No rashes, No breakdown Neurological: Cranial nerves are intact, neuro grossly intact Assessment and plan: #1 syncope: Vasovagal with orthostatic hypotension. EKG revealed A. fib, right bundle branch block, no acute changes. Heart rate has been around 100. Troponin is negative. CT scan brain showed right frontal hematoma. CBC and BMP reviewed. Plan to resume IV fluids, PT OT evaluation and treatment, anticipate discharge home tomorrow. #2 A. fib with RVR: Initially, rate was in the 110 upon arrival to ED. Heart rate has been around 100. Continue metoprolol for rate control, keep holding Eliquis for now. #3 closed head trauma/right frontal hematoma: Due to mechanical fall and being on Eliquis. CT scan brain showed no acute intracerebral bleed, revealed right frontal hematoma. Plan to monitor. #4 other chronic medical problems: Stable, continue current medications as above. This note was generated with [employer] dictation software. It may contain incorrect words, spelling, and punctuation that were not noted in checking the note before signing. Inpatient E&M: 34789 Subs Hosp L2
--- NOTE | 2020-01-07 15:23 | NURSING ---
Report given to THOMAS Kendrick at this time.
[2020-01-07] MEDS: Atorvastatin Calcium 20 MG Tablet PO (21:20)
[2020-01-07] MEDS: Famotidine 20 MG Tablet 40 MG PO (21:20)
[2020-01-08] VITALS (8 sets, daily range): BP systolic 118–176; BP diastolic 78–101; PULSE 76–111; RESP 15–20; TEMP 36.6–37; O2SAT 97–98
[2020-01-08] MEDS: 0.9% Normal Saline 1,000 ML 100 ML IV (05:38)
[2020-01-08] MEDS: metFORMIN HCl 500 MG Tablet PO (08:22)
[2020-01-08] MEDS: Losartan Potassium 100 MG Tablet PO (08:22)
[2020-01-08] MEDS: Metoprolol(XL)Succ 25 MG Tablet PO (08:22)
[2020-01-08] MEDS: glipiZIDE XL 5 MG Tablet PO (08:22)
[2020-01-08] MEDS: Magnesium Oxide 400 MG Tablet PO (08:22)
--- NOTE | 2020-01-08 09:05 | DCINST_ITS ---
- Discharge Diagnoses Current Active Problems: Current Active and Chronic Problems (Last Updated 01/07/20 @ 13:[address] Renny Stephenson MD) Syncope (Acute) Atrial fibrillation (Acute) You will use the following diet at home:: Cardiac Your food should be the consistency of: Regular Your liquids should be the consistency of: Regular/Thin Discharge Activity: Return to Normal Activity Additional Instructions: Please have BMP (lab) checked at follow up. Allergies/Adverse Reactions: Allergies Penicillins Adverse Reaction (Verified 01/06/20 12:15) Unknown Medications to take at Discharge apixaban 5 mg tablet 5 mg PO BID 11/30/18 atorvastatin 20 mg tablet 20 mg PO QHS 11/30/18 glipizide 5 mg tablet, extended release 24 hr 5 mg PO DAILY 11/30/18 magnesium oxide 400 mg PO DAILY cap 11/30/18 metformin 500 mg tablet,extended release 24hr 500 mg PO BID tab 11/30/18 ranitidine HCl 300 mg capsule 300 mg PO QHS 11/30/18 losartan 100 mg tablet 100 mg PO DAILY #30 tab 12/14/18 metoprolol succinate 25 mg tablet,extended release 24 hr 25 mg PO DAILY #30 tab 12/14/18 Primary Care Physician: Balwinder Au MD [Primary Care Provider] - Please follow up with your Primary Care Physician in: 1 week Test Results: Test results from this visit will be discussed in further detail at your follow- up appointment, if applicable. Proposed Discharge Date: 01/08/20
--- NOTE | 2020-01-08 14:32 | PCM.DC.SUM ---
<Toribio Dumont - Last Filed: 01/08/20 14:32> Discharge Date and Diagnosis Date of Admission: 01/06/20 Date of Discharge: 01/08/20 - Primary Discharge Diagnosis Acute Problems: Syncope, orthostatic hypotension, 2/2 dehydration Facial hematoma 2/2 fall T2DM GERD HTN - Secondary Discharge Diagnosis Chronic Problems: Chronic Problems (Last Updated 01/07/20 @ 13:[address] Rneny Stephenson MD) New onset atrial fibrillation (Chronic 10/2018) Nonrheumatic aortic (valve) insufficiency (Chronic) Essential (primary) hypertension (Chronic) Hyperlipidemia (Chronic) History of breast cancer (Chronic) Chemo Hospital Course and Treatment Imaging Results: CT/Brain/Head without Contrast IMPRESSION: Chronic involutional changes of the brain. 2.6 cm x 1.2 cm hematoma overlying the right frontal bone and right orbital region. Operations: None Procedures: 2-D Echocardiogram Summary of Care Provided: Hospital course: The patient is a 79 year old F with past medical history as above who presented to the emergency room with syncope. The patient was at the grocery store, felt hot, passed out, struck her head. She noted she did not eat any breakfast and had not taken any of her medications that morning. She came to the emergency room and had a CT showing a right frontal bone hematoma and she did indeed have a large bruise on the right side of her face however minimal pain. Eliquis was held for hematoma. White blood cell count was elevated at 14,000 and BUN and creatinine were mildly elevated. Patient was admitted for syncope. Her orthostatic vitals were markedly abnormal. She was given IV fluids as she was felt to be dehydrated. Troponin was negative x3. An echocardiogram was obtained the following day which showed results as above, EF 60%, normal LV systolic function, stage II diastolic dysfunction, 1+ LEONORA and MVI. Patient symptoms were resolved the next day. On the day of discharge her orthostatic vitals were negative. Patient was placed back on her normal home medication regimen, she will resume Eliquis tomorrow. She was discharged home in stable condition. She will need follow-up with her PCP in 1 to 2 weeks. This patient was seen by Toribio Dumont PA-C under the supervision of Doctor Stephenson. [] - Physical Exam Vitals/I&O's: Vital Signs Temp Pulse Resp BP Pulse Ox 98.3 F 80 15 136/82 H 97 01/08/20 11:05 01/08/20 11:05 01/08/20 11:05 01/08/20 11:05 01/08/20 11:05 Oxygen Delivery Method Room Air Weight: 210 lb 12.8 oz Body Mass Index (BMI) 34.0 Orthostatic Vital Signs Start: 01/06/20 16:07 Freq: q24h Status: Active Protocol: Activity Type Activity Date Activity User E-Sign Co-Sign Detail Recorded Client Recorded Date Recorded By Document 01/08/20 05:28 CM [id number] 01/08/20 05:32 CM 01/08/20 05:28 Orthostatic Vitals Standing -Blood Pressure (90/60-120/80) 162/93 H -Extremity Use Right Arm -Pulse Rate (60-100) 103 H Sitting -Blood Pressure (90/60-120/80) 156/101 H -Extremity Use Right Arm -Pulse Rate (60-100) 95 Lying -Blood Pressure (90/60-120/80) 138/86 H -Extremity Use Right Arm -Pulse Rate (60-100) 101 H Intake and Output for Last 24 Hours 01/06/20 01/07/20 01/08/20 23:59 23:59 23:59 Intake Total 360 / 360 1725 / 1725 1000 / 1000 Balance 360 / 360 1725 / 1725 1000 / 1000 General: Alert, Oriented x3, Cooperative HEENT: Atraumatic, PERRLA, EOMI, Normocephalic Oral: - - right forehead hematoma unchanged Neck: Supple, No JVD, Negative Carotid Bruits Lungs: Clear to auscultation, Normal air movement Cardiovascular: Regular rate, No murmurs Abdomen: Bowel Sounds Present, Soft, Non Tender Extremities: No edema, Capillary Refill Less than 3 Seconds Skin: No rashes, No breakdown Musculoskeletal: No Tenderness to Palpation of Joints or Extremities Neurological: Cranial nerves II-XII grossly intact Psych/Mental Status: Normal Affect, Appropriate, Alert and oriented to time, place, person, mood and affect Discharge Diet: Low fat/ Low Cholesterol, 2000 mg Sodium Diet Discharge Activity: Return to Normal Activity Home Medications: Medications to take at Discharge apixaban 5 mg tablet 5 mg PO BID 11/30/18 atorvastatin 20 mg tablet 20 mg PO QHS 11/30/18 glipizide 5 mg tablet, extended release 24 hr 5 mg PO DAILY 11/30/18 magnesium oxide 400 mg PO DAILY cap 11/30/18 metformin 500 mg tablet,extended release 24hr 500 mg PO BID tab 11/30/18 ranitidine HCl 300 mg capsule 300 mg PO QHS 11/30/18 losartan 100 mg tablet 100 mg PO DAILY #30 tab 12/14/18 metoprolol succinate 25 mg tablet,extended release 24 hr 25 mg PO DAILY #30 tab 12/14/18 Primary Care Physician: Balwinder Au MD [Primary Care Provider] - Please follow up with your Primary Care Physician in: 1 week Disposition: Home Minutes spent on discharge:: 35 Patient Condition:: Stable Medical Necessity - Tobacco Use Smoking Status: Never smoker Meaningful Use Info Meaningful Use Diagnoses (Choose all that apply): None applicable <Renny Stephenson - Last Filed: 01/09/20 09:45> Discharge Date and Diagnosis - Secondary Discharge Diagnosis Chronic Problems: Chronic Problems (Last Updated 01/07/20 @ 13:[address] Renny Stephenson MD) New onset atrial fibrillation (Chronic 10/2018) Nonrheumatic aortic (valve) insufficiency (Chronic) Essential (primary) hypertension (Chronic) Hyperlipidemia (Chronic) History of breast cancer (Chronic) Chemo Hospital Course and Treatment Summary of Care Provided: Hospitalist note: This note is for encounter on January 08, 2020. Discharge summary above reviewed and I concur with above discharge and treatment plan. Patient presented to the emergency room because of syncopal episode with closed head trauma and right eye ecchymosis. This syncope attributed to vasovagal syncope. EKG revealed A. fib, right bundle branch block without acute segment changes. Troponin was negative. CT scan brain showed right frontal hematoma. Initially, patient was in A. fib with RVR. Eliquis held because of the closed head trauma. Routine blood work was remarkable for leukocytosis which attributed to stress, improved. Patient was found to have orthostatic hypotension. She was treated with IV fluids and her blood pressure improved. She started having this ecchymosis and bruise around the right eye because of the trauma. Eliquis held. Her pro time was 16 and INR was 1.3. 2D echocardiogram revealed normal LV size and function, ejection fraction was 60%, moderate LVH, stage II diastolic dysfunction. After IV fluid therapy, patient's blood pressure improved. Repeat orthostatic vitals were normal. Her resting blood pressure was slightly on the higher side. Patient discharged home in a stable medical condition, instructed to resume taking Eliquis tomorrow January 09, 2020, continued on her other previous home medications without any changes, recommended from with PCP in 1 week. - Physical Exam General: Alert, Oriented x3, Cooperative, No apparent distress. HEENT:traumatic, ecchymosis and bruises around the right eye, PERRLA, EOMI. Neck: Supple, No JVD, Negative Carotid Bruits, Trachea Midline, Thyroid Normal. Lungs: Clear to auscultation, Normal air movement, No rhonchi, No wheeze, No rales. Cardiovascular: irregular rate and rhythm, Normal S1, Normal S2, PMI Normal. Abdomen: Bowel Sounds Present, Soft, Non Tender, Non-Distended, No Hepato-splenomegaly. Extremities: No clubbing, No cyanosis, No edema Skin: No rashes, No breakdown Neurological: Cranial nerves are intact, neuro grossly intact. Vital signs are stable. This note was generated with [employer] dictation software. It may contain incorrect words, spelling, and punctuation that were not noted in checking the note before signing. - Physical Exam Vitals/I&O's: Vital Signs Temp Pulse Resp BP Pulse Ox 98.3 F 80 15 136/82 H 97 01/08/20 11:05 01/08/20 11:05 01/08/20 11:05 01/08/20 11:05 01/08/20 11:05 Oxygen Delivery Method Room Air Weight: 210 lb 12.8 oz Body Mass Index (BMI) 34.0 Orthostatic Vital Signs Start: 01/06/20 16:07 Freq: q24h Status: Active Protocol: Activity Type Activity Date Activity User E-Sign Co-Sign Detail Recorded Client Recorded Date Recorded By Document 01/08/20 05:28 CM [id number] 01/08/20 05:32 CM 01/08/20 05:28 Orthostatic Vitals Standing -Blood Pressure (90/60-120/80) 162/93 H -Extremity Use Right Arm -Pulse Rate (60-100) 103 H Sitting -Blood Pressure (90/60-120/80) 156/101 H -Extremity Use Right Arm -Pulse Rate (60-100) 95 Lying -Blood Pressure (90/60-120/80) 138/86 H -Extremity Use Right Arm -Pulse Rate (60-100) 101 H Intake and Output for Last 24 Hours 01/06/20 01/07/20 01/08/20 23:59 23:59 23:59 Intake Total 360 / 360 1725 / 1725 1000 / 1000 Balance 360 / 360 1725 / 1725 1000 / 1000 Disposition: Home Minutes spent on discharge:: 32 Patient Condition:: Stable Meaningful Use Info Meaningful Use Diagnoses (Choose all that apply): None applicable Inpatient E&M: 12966 Disch Hosp
== END 2020-01-08 11:27 | disposition home or self-care (01) | DRG 312 ==
LOC: ED 14:22 → PCU 14:54
PROVIDERS: Emergency Provider Emergency Medicine; PCP Family Medicine; Visit Provider Hospitalist
DX: I95.1 Orthostatic hypotension (principal); I48.20 Chronic atrial fibrillation, unspecified; E86.0 Dehydration; R29.6 Repeated falls; S00.83XA Contusion of other part of head, initial encounter; W01.10XA Fall on same level from slipping, tripping and stumbling with subsequent striking against unspecified object, initial encounter; Y93.9 Activity, unspecified; Y92.512 Supermarket, store or market as the place of occurrence of the external cause; Y99.9 Unspecified external cause status; I35.1 Nonrheumatic aortic (valve) insufficiency; E11.9 Type 2 diabetes mellitus without complications; I10 Essential (primary) hypertension; E78.5 Hyperlipidemia, unspecified; K21.9 Gastro-esophageal reflux disease without esophagitis; E66.01 Morbid (severe) obesity due to excess calories; Z68.35 Body mass index [BMI] 35.0-35.9, adult; Z79.01 Long term (current) use of anticoagulants; Z79.84 Long term (current) use of oral hypoglycemic drugs; Z79.899 Other long term (current) drug therapy
CPT/HCPCS: 36415; 70450; 71046; 80048; 82962; 84484; 85025; 85610; 85730; 93005; 93306; 97161; 97166; 99285; J7030; Q9957; A4216; C8929

== ENCOUNTER 2021-02-04 09:09 | Emergency (ER) | payer MEDICARE, BC, SELFPAY ==
[2020-02-09 14:05] VITALS: BMI 37.5
[2021-02-04 09:09] VITALS: BP 152/83; PULSE 85; RESP 16; TEMP 36.4; O2SAT 99; BMI 35.5
--- NOTE | 2021-02-04 09:15 | CT_ITS ---
STUDY: CT BRAIN WITHOUT CONTRAST REASON FOR EXAM: Female, 80 years old. head trauma RADIATION DOSAGE (If Supplied By Facility): CTDIvol = ( 44.99 ) mGy, DLP = ( 779.24 ) mGycm TECHNIQUE: Transaxial CT imaging of the brain was performed without administration of intravenous contrast material. Individualized dose optimization techniques were used for this CT. COMPARISON: 01/06/20 FINDINGS: Large left frontal scalp hematoma. Normal calvarium. Mild atrophy. Ischemic white matter changes. Normal basal ganglia and thalami. Normal brainstem. Normal cerebellum. There is no intracranial hemorrhage. There are no findings of an acute ischemic infarction. Normal visualized paranasal sinuses. CT/Brain/Head without Contrast IMPRESSION: Large left frontal scalp hematoma but no intracranial hemorrhage. Electronically Signed: Leonard Chowdary MD at 10:55 EDT Tel , Service support ,
--- NOTE | 2021-02-04 09:21 | ED.VIS.FALL ---
HPI HPI - Fall History of Present Illness Chief Complaint: Fall Informant: patient Occured/Mechanism Occurred: Today Usually ambulates: Without assistance Pain/Injury Pain Location: head and face Current Severity: Mild Maximum Severity: Mild Associated Symptoms Associated Symptoms: Negative for Parasthesias, Weakness, Loss of function, Inability to ambulate, Loss of consciousness and Amnesia Narrative Narrative: 80-year-old female history of atrial fibrillation on the blood thinner Eliquis. Also diabetic and history of breast cancer with mastectomy. Today she was doing her laundry she bent over lost her balance fell striking her face on a ramp that she has in her home. She denies any LOC. She denies any neck pain. She has bruising the left side of her face she did have bleeding from her nose which is since resolved. She also hit her elbows and her left hand. She denies any recent illness. No nausea, vomiting or diarrhea. She denies any headache or neck pain. She lives alone. Prior similar symptoms: No Recent Illness/Hospitalization: No PFSH PFS Medical History (Updated 02/04/21 @ 10:[address] Luke Paiz MD) Class 2 severe obesity due to excess calories with serious comorbidity and body mass index (BMI) of 35.0 to 35.9 in adult Essential (primary) hypertension Frequent falls GERD (gastroesophageal reflux disease) History of breast cancer Hyperlipidemia New onset atrial fibrillation (10/2018) Orthostatic hypotension (01/06/20) Persistent atrial fibrillation Right bundle branch block (RBBB) Syncope (01/06/20) Type 2 diabetes mellitus Home Medications apixaban 5 mg tablet 5 mg PO BID 11/30/18 [History Last Taken 01/05/20] atorvastatin 20 mg tablet 20 mg PO QHS 11/30/18 [History Last Taken 01/05/20] glipizide 5 mg tablet, extended release 24 hr 5 mg PO DAILY 11/30/18 [History Last Taken 01/05/20] magnesium oxide 400 mg PO DAILY cap 11/30/18 [History Last Taken 01/05/20] metformin 500 mg tablet,extended release 24hr 500 mg PO BID tab 11/30/18 [History Last Taken 01/05/20] ranitidine HCl 300 mg capsule 300 mg PO QHS 11/30/18 [History Last Taken 01/05/20] metoprolol succinate 25 mg tablet,extended release 24 hr 25 mg PO DAILY #30 tab 12/14/18 [Rx Last Taken 01/05/20] diltiazem HCl 120 mg PO DAILY 02/04/21 [History Last Taken Unknown] furosemide 20 mg PO DAILY 02/04/21 [History Last Taken Unknown] losartan 50 mg PO DAILY 02/04/21 [History Last Taken Unknown] potassium chloride 10 meq PO DAILY 02/04/21 [History Last Taken Unknown] Allergy/AdvReac Type Severity Reaction Status Date / Time Penicillins AdvReac Unknown Verified 02/04/21 09:17 Surgical History History of mastectomy Hx of cholecystectomy Social History Smoking Status: Never smoker ROS ROS ED ROS Narrative Patient denies recent illness. Review of Systems ROS Unobtainable: Denies due to encephalopathy Constitutional Constitutional ED: Denies chills or fever(s) Eyes Eyes: Denies change in vision ENT ENT ED: Denies ear pain Cardiovascular Cardiovascular: Denies chest pain Respiratory/Chest Respiratory/Chest: Denies cough or dyspnea Gastrointestinal Gastrointestinal: Denies abdominal pain, diarrhea, nausea or vomiting Genitourinary Genitourinary ED: Denies dysuria Musculoskeletal Musculoskeletal: Denies myalgias Integumentary Denies rash Neurologic Neurologic: Denies headache(s) Psychiatric Psychiatric: Denies depression Endocrine Endocrinology: Denies polyuria Hematologic/Lymphatic Hematologic/Lymphatic: Denies easy bruising Allergic/Immunologic Allergic/Immunologic ED: Denies urticaria EXAM Physical Exam Narrative Exam Narrative: Older female no acute distress. Vital signs stable afebrile. Heart rate 85. Blood pressure 152/83. She does not look septic or toxic. HEENT exam pupils round reactive light extra motions are intact. Patient has a moderate sized hematoma to her left forehead. Also mild swelling and tenderness to the bridge of her nose. There is no active bleeding from her nose or any lacerations. She is able to open close her mouth. Her scalp is nontender without other hematomas. C-spine nontender. Trachea midline. Lungs clear to auscultation. Heart regular rhythm rate of 80. Chest wall nontender. Abdomen soft nontender. Pelvic girdle intact. There is no shortening or rotation either hips are nontender. Back nontender no bruising to her back. She can move her extremities. She has mild bruising to both elbows and mild bruising on the knuckles of her left hand. There is no bony deformity. She has full range of motion to her shoulders, elbows and wrists. She is able to open and close her hands. She is able to flex and extend both her hips knees ankles and feet. There is stool on her pants. Neurologically she is awake and alert with no focal motor deficits. Const Vital Signs: 02/04/21 09:09 Temperature 97.5 F L Temperature Source Temporal Pulse Rate 85 Respiratory Rate 16 Respiratory Effort Normal Non-Labored Respiratory Depth Normal Respiratory Pattern Normal Blood Pressure 152/83 H Blood Pressure Mean 106 Pulse Ox 99 Oxygen Delivery Method Room Air HEENT Reports normocephalic HEENT Narrative: Left facial wall bruising primarily at the forehead and around the left eye. Mildly tender. trauma and tenderness; Negative for atraumatic Eyes PERRL and EOMs intact bilaterally Neck full ROM, no lymphadenopathy and supple General: Negative for tenderness Chest Wall inspection of chest normal and palpation of chest normal Resp normal respiratory effort, no retractions and clear to auscultation bilaterally Auscultation: Negative for rales, rhonchi or wheezes Cardio regular rate, regular rhythm, S1 normal heart sound, S2 normal heart sound and no murmurs GI non-tender, non-distended and no masses Auscultation: normoactive bowel sounds Palpation: soft Back/Spine no CVA tenderness General Back: Negative for CVA tenderness Cervical Spine: Negative for cervical spine tenderness Thoracic Spine / Upper Back: Negative for thoracic spinal tenderness Lumbar Spine / Lower Back: Negative for lumbar spinal tenderness Extremity normal to inspection Extremity Narrative: Except mild bruising to both elbows and bruising mild abrasion to dorsum of left hand. However has normal range of motion. Nontender. No deformity. Neuro oriented x3, moves all extremities and no focal motor deficits Jordy Coma Scale: document GCS findings Spontaneous Obeys Commands Oriented 15 Sensorium / Orientation: alert, oriented to person, oriented to place and oriented to time; Negative for orientation impaired, confused, lethargic or stuporous Psych mental status grossly normal Skin Skin Narrative: Bruising. Abrasion left hand. Hematoma left forehead. Lesions: no lesions Rashes: no rashes MDM MDM MDM Narrative Medical decision making narrative: Older female lives alone fell at home on Eliquis. She has a significant hematoma to her left forehead and around the left eye which will need a CAT scan. Going to check screening labs on the patient. Otherwise her exam has some contusions and abrasions but no other significant acute abnormalities. Repeat exam patient is doing well at 10:49 AM. I went over test results with her and family. We are just waiting for the official radiology interpretation of the CAT scan. I did review the film I do not see any signs of acute intracranial hemorrhage. She does have significant soft tissue swelling on her left forehead and eye consistent with a hematoma on exam. Lab Data Attestation: I reviewed the patient's lab results. Lab results narrative: White count 11.9. Hemoglobin 12.4. Electrolytes normal gap 10. Normal creatinine. Normal glucose. Labs: Laboratory Results - last 24 hr 02/04/21 02/04/21 09:30 09:30 WBC 11.9 H RBC 4.49 Hgb 12.4 Hct 40.5 MCV 90.2 MCH 27.6 MCHC 30.6 L RDW Std Deviation 56.5 H RDW Coeff of Stacey 17.2 H Plt Count 428 MPV 8.9 Immature Gran % (Auto) 0.400 Neut % (Auto) 81.0 H Lymph % (Auto) 9.8 L [place] % (Auto) 7.1 Eos % (Auto) 1.1 Baso % (Auto) 0.6 Absolute Neuts (auto) 9.7 H Absolute Lymphs (auto) 1.17 Nucleated RBC % 0 Sodium 138 Potassium 3.9 Chloride 105 Carbon Dioxide 23.0 Anion Gap 10 BUN 18 Creatinine 1.02 Estim Creat Clear Calc 40.49 Est GFR (MDRD) Af Amer 67 Est GFR (MDRD) Non-Af 55 L BUN/Creatinine Ratio 17.6 Glucose 190 H Calcium 9.8 Radiography Diagnostic Testing: Radiology Impression Brain CT 02/04/21 09:15 IMPRESSION: Large left frontal scalp hematoma but no intracranial hemorrhage. Electronically Signed: Leonard Chowdary MD at 10:55 EDT Tel , Service support , Reviewed and agree with radiologist interpretation of the CAT scan of the brain. Discharge Plan Triage Chief Complaint: Fall ED Provider: Luke Paiz Dx/Rx/DC Orders Clinical Impression: Fall, Contusion of face, Head injury Instructions: Bruises (Contusions), ED Head Injury (Adult) Prescriptions: No Action ranitidine HCl 300 mg capsule 300 mg PO QHS RF: 0 magnesium oxide 400 mg capsule 400 mg PO DAILY RF: 0 glipizide 5 mg tablet extended release 24hr 5 mg PO DAILY RF: 0 metformin 500 mg tablet extended release 24hr 500 mg PO BID RF: 0 Eliquis 5 mg tablet 5 mg PO BID RF: 0 atorvastatin 20 mg tablet 20 mg PO QHS RF: 0 metoprolol succinate 25 mg tablet extended release 24 hr 25 mg PO DAILY Qty: 30 RF: 11 potassium chloride 10 mEq tablet extended release 10 meq PO DAILY RF: 0 diltiazem HCl 120 mg capsule,extended release 24 hr 120 mg PO DAILY RF: 0 furosemide 20 mg Tablet 20 mg PO DAILY RF: 0 losartan 100 mg tablet 50 mg PO DAILY RF: 0 Primary Care Provider: Balwinder Au Referrals: Balwinder Au MD [Primary Care Provider] - As Needed Activity Restrictions/Additional Instructions: Ice to all your bruises primarily on your face and elbows and hand. Hold your blood thinner the Eliquis for the next 2 days. You may restart it on Friday. Return if severe headache, vomiting or not acting herself. These are signs of a delayed bleeding that would develop in your brain. Follow-up with your doctor as needed. Disposition Disposition: Home, Self Care
[2021-02-04 09:41] LABS: Absolute Lymphocyte Count 1.17 X10^3/uL (0.83-4.51); Absolute Neutrophil Count 9.7 X10^3/uL (2.0-7.7); Basophil# 0.07 X10^3/uL; Basophil% 0.6 % (0-1); Eosinophil# 0.13 X10^3/uL; Eosinophils% 1.1 % (0-5); Hematocrit 40.5 % (37-47); Hemoglobin 12.4 g/dL (12.0-15.0); Lymphocyte # 1.17 X10^3/ul (0.83-4.51); Lymphocyte % 9.8 % (19-41); Mean Corp Hgb Conc 30.6 g/dL (32-36); Mean Corpuscular Hgb 27.6 pg (27.0-32.0); Mean Corpuscular Volume 90.2 fL (81-99); Mean Platelet Vol. 8.9 fl (6.2-12.0); Monocyte# 0.85 X10^3/uL; Monocyte% 7.1 % (0-10); NRBC Flagged by Analyzer 0 % (0-5); Neutrophil # 9.66 X10^3/uL (2.7-7.7); Platelet Count 428 K/mm3 (150-450); RBC Distribution Width CV 17.2 % (11.6-14.6); RBC Distribution Width SD 56.5 fl (35.1-43.9); Red Blood Count 4.49 M/mm3 (4.2-5.4); White Blood Count 11.9 K/mm3 (4.4-11.0)
[2021-02-04 09:54] LABS: Anion Gap 10 (5-15); BUN 18 mg/dL (7-18); BUN/Creat Ratio 17.6 RATIO (10-20); Calcium,Total 9.8 mg/dL (8.5-10.1); Chloride 105 mmol/L (98-107); Creatinine, Serum 1.02 mg/dL (0.55-1.02); EST Glomerular Filtration Rate 55 mL/min (>60); Est Glom Filt Rate - Afr Amer 67 mL/min (>60); Estimated Creatinine Clearance 40.49 ml/min; Glucose 190 mg/dL (74-106); Potassium 3.9 mmol/L (3.5-5.1); Sodium Level 138 mmol/L (136-145)
[2021-02-04 11:09] VITALS: BP 148/80; PULSE 76; RESP 17; O2SAT 97
[2021-02-04] MEDS: COVID-19 VAC,AD26(JANSSEN)/PF 0.5 ML SYRINGE IM (11:37)
--- NOTE | 2021-02-04 11:59 | ED.RN ---
PT WAS OBSERVED FOR SHOT TIME GREATER THAN 15 MIN. NO REACTION NOTED BY THIS RN. PT D/C WITH FAMILY.
== END 2021-02-04 11:59 | disposition home or self-care (01) ==
PROVIDERS: Emergency Provider Emergency Medicine; PCP Family Medicine
DX: S00.83XA Contusion of other part of head, initial encounter (principal); S60.222A Contusion of left hand, initial encounter; Z23 Encounter for immunization; W01.198A Fall on same level from slipping, tripping and stumbling with subsequent striking against other object, initial encounter; Y93.E2 Activity, laundry; Y92.009 Unspecified place in unspecified non-institutional (private) residence as the place of occurrence of the external cause; Y99.9 Unspecified external cause status; R29.6 Repeated falls; I48.19 Other persistent atrial fibrillation; E11.9 Type 2 diabetes mellitus without complications; I10 Essential (primary) hypertension; E78.5 Hyperlipidemia, unspecified; K21.9 Gastro-esophageal reflux disease without esophagitis; E66.01 Morbid (severe) obesity due to excess calories; Z68.35 Body mass index [BMI] 35.0-35.9, adult; Z79.01 Long term (current) use of anticoagulants; Z79.84 Long term (current) use of oral hypoglycemic drugs; Z79.899 Other long term (current) drug therapy; Z85.3 Personal history of malignant neoplasm of breast
CPT/HCPCS: 70450; 80048; 85025; 91303; 99285

== ENCOUNTER 2021-05-13 09:36 | Inpatient (IN) | payer MEDICARE, BC, SELFPAY ==
[2021-05-13] VITALS (12 sets, daily range): BP systolic 123–167; BP diastolic 62–91; PULSE 39–120; RESP 14–22; TEMP 36.7–37.2; O2SAT 95–99; BMI 35.6; BMI 34.3
--- NOTE | 2021-05-13 10:07 | RAD_ITS ---
STUDY: X-RAY CHEST REASON FOR EXAM: Female, 80 years old. weakness TECHNIQUE: Single AP portable view of the chest. COMPARISON: 01/06/2020 FINDINGS: The lungs are clear and expanded. There is no demonstrated pleural abnormality. There is moderate cardiac enlargement. Normal mediastinum and farnaz. Normal visualized pulmonary arteries. Normal visualized aortic arch and descending thoracic aorta. Normal visualized thoracic spine. Normal visualized ribs, clavicles, and shoulders. There is no demonstrated abnormality of the visualized soft tissue structures of the upper abdomen. RAD/Chest 1 View (Portable) IMPRESSION: No active disease. Electronically Signed: Leonard Chowdary MD at 11:44 EST Tel , Service support ,
--- NOTE | 2021-05-13 10:07 | EKG12_ITS ---
Test Reason : Blood Pressure : / mmHG Vent. Rate : 117 BPM Atrial Rate : 133 BPM P-R Int : 000 ms QRS Dur : 128 ms QT Int : 318 ms P-R-T Axes : 000 006 -57 degrees QTc Int : 443 ms Atrial fibrillation Right bundle branch block Abnormal ECG Confirmed by HAYDEN LEYVA, FABRICIO ([id number]), editor book ROSALIND NAZARIO ([id number]) on 05/14/2021 11:05:59 AM Referred By: CAITLIN Confirmed By:FABRICIO BLAKE MD
--- NOTE | 2021-05-13 10:10 | ED.VIS.FALL ---
HPI HPI - Fall History of Present Illness Chief Complaint: Fall Informant: patient Occured/Mechanism Occurred: Weeks Pain/Injury Current Severity: Mild Maximum Severity: Mild Associated Symptoms Associated Symptoms: Negative for Parasthesias, Weakness, Loss of function, Inability to ambulate, Loss of consciousness and Amnesia Narrative Narrative: 80-year-old seen male extensive past medical history of breast cancer in the past, hypertension, A. fib on Eliquis and diabetes. Patient states she just had pain all over for the last several months. Yesterday she slid out of bed she lives alone used her med alert and her family came over to her home and helped her. She denies any recent illness. She denies any nausea, vomiting, diarrhea or fever. She denies any dysuria. She denies any cough or shortness of breath. She denies any specific injuries yesterday with the fall and she did not hit her head. She just says she has this pain all over and does not know what is causing it. Prior similar symptoms: Yes Recent Illness/Hospitalization: No PFSH PFS Medical History (Updated 05/13/21 @ 12:[address] Luke Paiz MD) Class 2 severe obesity due to excess calories with serious comorbidity and body mass index (BMI) of 35.0 to 35.9 in adult Essential (primary) hypertension Frequent falls GERD (gastroesophageal reflux disease) History of breast cancer Hyperlipidemia New onset atrial fibrillation (10/2018) Orthostatic hypotension (01/06/20) Persistent atrial fibrillation Right bundle branch block (RBBB) Syncope (01/06/20) Type 2 diabetes mellitus Home Medications apixaban 5 mg tablet 5 mg PO BID 11/30/18 [History Last Taken 01/05/20] atorvastatin 20 mg tablet 20 mg PO QHS 11/30/18 [History Last Taken 01/05/20] glipizide 5 mg tablet, extended release 24 hr 5 mg PO DAILY 11/30/18 [History Last Taken 01/05/20] magnesium oxide 400 mg PO DAILY cap 11/30/18 [History Last Taken 01/05/20] metformin 500 mg tablet,extended release 24hr 500 mg PO BID tab 11/30/18 [History Last Taken 01/05/20] ranitidine HCl 300 mg capsule 300 mg PO QHS 11/30/18 [History Last Taken 01/05/20] metoprolol succinate 25 mg tablet,extended release 24 hr 25 mg PO DAILY #30 tab 12/14/18 [Rx Last Taken 01/05/20] diltiazem HCl 120 mg PO DAILY 02/04/21 [History Last Taken Unknown] furosemide 20 mg PO DAILY 02/04/21 [History Last Taken Unknown] losartan 50 mg PO DAILY 02/04/21 [History Last Taken Unknown] potassium chloride 10 meq PO DAILY 02/04/21 [History Last Taken Unknown] Allergy/AdvReac Type Severity Reaction Status Date / Time Penicillins AdvReac Unknown Verified 05/13/21 09:37 Surgical History History of mastectomy Hx of cholecystectomy Social History Smoking Status: Never smoker ROS ROS ED ROS Narrative Denies recent illness. Review of Systems ROS Unobtainable: Denies due to encephalopathy Constitutional Constitutional ED: Denies fever(s) Eyes Eyes: Denies change in vision ENT ENT ED: Denies ear pain Cardiovascular Cardiovascular: Denies chest pain Respiratory/Chest Respiratory/Chest: Denies dyspnea Gastrointestinal Gastrointestinal: Denies abdominal pain Genitourinary Genitourinary ED: Denies dysuria Musculoskeletal Musculoskeletal: Denies myalgias Integumentary Denies rash Neurologic Neurologic: Denies headache(s) Psychiatric Psychiatric: Denies depression Endocrine Endocrinology: Denies polyuria Hematologic/Lymphatic Hematologic/Lymphatic: Denies easy bruising Allergic/Immunologic Allergic/Immunologic ED: Denies urticaria EXAM Physical Exam Narrative Exam Narrative: 80-year-old female lying in bed vital signs stable she is in A. fib with RVR rate around 1 10-1 20. HEENT exam atraumatic nontender moist membranes. Neck nontender. Lungs clear to auscultation. Heart irregularly irregular A. fib rate about 115. Chest wall nontender. Abdomen soft nontender. Pelvic girdle intact. No shortening or rotation or significant tenderness to either hip. She has normal emergency medicine physician assistant strength bilaterally. She can dorsi and plantarflex. She has normal flexion extension of both upper and lower extremities. Neurologically she is awake and alert answering questions. Const Vital Signs: 05/13/21 09:38 05/13/21 09:45 05/13/21 11:39 Temperature 98.4 F Temperature Source Oral Pulse Rate 120 H 89 Respiratory Rate 20 H 22 H Respiratory Effort Normal Non-Labored Respiratory Depth Normal Respiratory Pattern Normal Blood Pressure 167/89 H 129/78 H Blood Pressure Mean 115 95 Pulse Ox 97 98 96 Oxygen Delivery Method Room Air Room Air Room Air Positive well nourished, well developed and obese; Negative for cachectic, contractures or unkempt General Appearance ED: well developed and NAD; Negative for unkempt, cachectic or contractures Nutritional Appearance: obese; Negative for cachectic HEENT Reports normocephalic atraumatic; Negative for trauma or tenderness Eyes PERRL and EOMs intact bilaterally Neck full ROM, no lymphadenopathy and supple General: Negative for tenderness Chest Wall inspection of chest normal and palpation of chest normal Resp normal respiratory effort, no retractions and clear to auscultation bilaterally Auscultation: Negative for rales, rhonchi or wheezes Cardio no murmurs Cardio Narrative: A. fib with RVR rate about 115. Rate: tachycardic GI non-tender, non-distended and no masses Auscultation: normoactive bowel sounds Palpation: soft; Negative for guarding Back/Spine no CVA tenderness Extremity normal to inspection and full ROM Neuro oriented x3, CN's II-XII intact bilaterally, moves all extremities and no focal motor deficits Sensorium / Orientation: alert, oriented to person, oriented to place and oriented to time; Negative for orientation impaired, confused, lethargic or stuporous Psych mental status grossly normal and thought process normal Appearance: Negative for unkempt Skin Lesions: no lesions Rashes: no rashes MDM MDM MDM Narrative Medical decision making narrative: 80-year-old female multiple medical problems currently in A. fib RVR and has a history of A. fib on blood thinner. Has had generalized pain for several months. Yesterday he slid out of bed needed assistance by family. He denies any injuries from that. Screening labs to be obtained. She does not give any symptoms any recent infectious etiologies. Repeat exam patient doing well at 12:20 PM. Her heart rates now in the 70s she remains in A. fib. I went over all test results with the patient and her daughter. Plan will be admitted to the hospitalist for social service coordinator consultation and possible treatment for possible UTI. A culture was sent. I will discuss with the hospitalist if they want us to initiate antibiotic therapy. Lab Data Attestation: I reviewed the patient's lab results. Lab results narrative: White count is elevated 15.6 hemoglobin of 12. Electrolytes unremarkable gap of eight BUN is 17 creatinine of one. Glucose 178. UA negative. Chest x-ray chronic changes no acute process urinalysis shows no nitrites 5-10 white cells no red cells no epithelial cells and 2+ bacteria urine culture was sent. Labs: Laboratory Results - last 24 hr 05/13/21 05/13/21 05/13/21 10:55 10:55 12:03 WBC 15.6 H RBC 4.42 Hgb 12.0 Hct 39.3 MCV 88.9 MCH 27.1 MCHC 30.5 L RDW Std Deviation 49.8 H RDW Coeff of Stacey 15.1 H Plt Count 426 MPV 9.1 Immature Gran % (Auto) 0.500 Neut % (Auto) 84.2 H Lymph % (Auto) 6.0 L [place] % (Auto) 8.7 Eos % (Auto) 0.1 Baso % (Auto) 0.5 Absolute Neuts (auto) 13.1 H Absolute Lymphs (auto) 0.94 Nucleated RBC % 0 Sodium 136 Potassium 3.9 Chloride 106 Carbon Dioxide 22.0 Anion Gap 8 BUN 17 Creatinine 1.08 H Estim Creat Clear Calc 36.76 Est GFR (MDRD) Af Amer 63 Est GFR (MDRD) Non-Af 52 L BUN/Creatinine Ratio 15.7 Glucose 178 H Calcium 9.9 Urine Color Yellow Urine Clarity Clear Urine pH 5.0 Ur Specific [place] 1.010 Urine Protein Negative Urine Glucose (UA) Normal Urine Ketones Negative Urine Occult Blood Negative Urine Nitrite Negative Urine Bilirubin Negative Urine Urobilinogen Normal Ur Leukocyte Esterase 100 H Urine RBC 0 SEEN Urine WBC 5-10 SEEN Ur Squamous Epith Cells 0 SEEN Urine Bacteria 2+ Urine Mucus 0 SEEN Radiography Diagnostic Testing: Clinical Impression(s) from Imaging Studies Chest X-Ray 05/13/21 10:07 IMPRESSION: No active disease. Electronically Signed: Leonard Chowdary MD at 11:44 EST Tel , Service support , Chest x-ray portable one view interpreted by myself and radiologist shows no acute abnormality. No infiltrate. No effusions or failure. Borderline cardiomegaly. Rhythm Strip Rhythm Strip: A-fib Rate: 117 Ectopy: None EKG Initial EKG: Interpretation: No Acute Injury Pattern and Atrial Fibrillation Comments: Atrial fibrillation with RVR rate of 117. No acute signs of VT or ischemia. Discharge Plan Triage Chief Complaint: Fall ED Provider: Luke Paiz Dx/Rx/DC Orders Clinical Impression: Atrial fibrillation with rapid ventricular response, Falls, Leukocytosis, Adult failure to thrive, Acute UTI Prescriptions: No Action ranitidine HCl 300 mg capsule 300 mg PO QHS RF: 0 magnesium oxide 400 mg capsule 400 mg PO DAILY RF: 0 glipizide 5 mg tablet extended release 24hr 5 mg PO DAILY RF: 0 metformin 500 mg tablet extended release 24hr 500 mg PO BID RF: 0 Eliquis 5 mg tablet 5 mg PO BID RF: 0 atorvastatin 20 mg tablet 20 mg PO QHS RF: 0 metoprolol succinate 25 mg tablet extended release 24 hr 25 mg PO DAILY Qty: 30 RF: 11 potassium chloride 10 mEq tablet extended release 10 meq PO DAILY RF: 0 diltiazem HCl 120 mg capsule,extended release 24 hr 120 mg PO DAILY RF: 0 furosemide 20 mg Tablet 20 mg PO DAILY RF: 0 losartan 100 mg tablet 50 mg PO DAILY RF: 0 Primary Care Provider: Balwinder Au Referrals: Balwinder Au MD [Primary Care Provider] - Disposition Disposition: Acute Care Hospital [facility]
[2021-05-13 11:04] LABS: Absolute Lymphocyte Count 0.94 X10^3/uL (0.83-4.51); Absolute Neutrophil Count 13.1 X10^3/uL (2.0-7.7); Basophil# 0.07 X10^3/uL; Basophil% 0.5 % (0-1); Eosinophil# 0.01 X10^3/uL; Eosinophils% 0.1 % (0-5); Hematocrit 39.3 % (37-47); Lymphocyte # 0.94 X10^3/ul (0.83-4.51); Mean Corp Hgb Conc 30.5 g/dL (32-36); Mean Corpuscular Hgb 27.1 pg (27.0-32.0); Mean Corpuscular Volume 88.9 fL (81-99); Mean Platelet Vol. 9.1 fl (6.2-12.0); Monocyte# 1.36 X10^3/uL; Monocyte% 8.7 % (0-10); NRBC Flagged by Analyzer 0 % (0-5); Neutrophil % 84.2 % (47-70); Platelet Count 426 K/mm3 (150-450); RBC Distribution Width CV 15.1 % (11.6-14.6); RBC Distribution Width SD 49.8 fl (35.1-43.9); Red Blood Count 4.42 M/mm3 (4.2-5.4); White Blood Count 15.6 K/mm3 (4.4-11.0)
[2021-05-13 11:17] LABS: Anion Gap 8 (5-15); BUN 17 mg/dL (7-18); BUN/Creat Ratio 15.7 RATIO (10-20); Calcium,Total 9.9 mg/dL (8.5-10.1); Chloride 106 mmol/L (98-107); Creatinine, Serum 1.08 mg/dL (0.55-1.02); EST Glomerular Filtration Rate 52 mL/min (>60); Est Glom Filt Rate - Afr Amer 63 mL/min (>60); Estimated Creatinine Clearance 36.76 ml/min; Glucose 178 mg/dL (74-106); Potassium 3.9 mmol/L (3.5-5.1); Sodium Level 136 mmol/L (136-145)
[2021-05-13] MEDS: dilTIAZem 25 MG/5 ML Vial 20 MG IV BOLUS (11:24)
[2021-05-13 12:07] LABS: Mucous, Urine 0 SEEN /hpf (<or=2+); Red Blood Cells-Urine 0 SEEN /hpf (0-5); Squamous Epithelial Cells - UA 0 SEEN /hpf (5-10)
[2021-05-13 12:09] LABS: Color, Urine Yellow (Yellow); Glucose, Dipstick Normal (Normal); Ketone-Dipstick Negative (Negative); Leukocyte Esterase-Dipstick 100 /ul (Negative); Nitrite-Dipstick Negative (Negative); Occult Blood-Urine Negative /ul (Negative); Protein-Dipstick Negative (Negative); Urine Bilirubin Dipstick Negative (Negative); Urine Clarity Clear (Clear); Urine Urobilinogen Normal (Normal)
[2021-05-13 12:18] LABS: Bacteria 2+ /hpf (None Seen); White Blood Cells 5-10 SEEN /hpf (0-5)
--- NOTE | 2021-05-13 13:07 | CDU_ITS ---
Reason For Study: SYNCOPE Rt. Velocities/BP Lt. Velocities/BP Prox CCA 86.9/12.5 cm/sec. Prox CCA 96.0/11.2 cm/sec. Mid CCA 80.3/7.3 cm/sec. Mid CCA 80.3/9.9 cm/sec. Dist CCA 68.6/9.9 cm/sec. Dist CCA 58.1/9.9 cm/sec. Prox ICA 50.3/9.9 cm/sec. Prox ICA 92.0/17.7 cm/sec. Mid ICA 85.6/16.4 cm/sec. Mid ICA 86.8/16.4 cm/sec. Dist ICA 94.7/17.7 cm/sec. Dist ICA 105.1/22.9 cm/sec. Rt. ICA/CCA = 94.7/80.3=1.2. Lt. ICA/CCA = 105.1/80.3=1.3. Prox ECA 63.4/0.0 cm/sec. Prox ECA 72.5/2.1 cm/sec. Rt. Vert. 59.5/13.8 cm/sec. Lt. Vert. 59.5/11.2 cm/sec. Right Extracranial There is intimal thickening but no significant atherosclerotic plaque noted in the right common carotid artery. There is intimal thickening but no significant atherosclerotic plaque noted in the right internal carotid artery. There is homogeneous, smooth atherosclerotic plaque noted in the right external carotid artery. Antegrade flow is noted in the right vertebral artery. There is heterogeneous, irregular atherosclerotic plaque noted in the right bulb. Left Extracranial There is intimal thickening but no significant atherosclerotic plaque noted in the left common carotid artery. There is heterogeneous, smooth atherosclerotic plaque noted in the left internal carotid artery. There is no significant atherosclerotic plaque noted in the left external carotid artery. Antegrade flow is noted in the left vertebral artery. There is heterogeneous, irregular atherosclerotic plaque noted in the left bulb. Procedure Carotid Duplex 80920. This is a Carotid Duplex examination using B-mode, color flow and specral Doppler. Exam performed portable in patient room. VL/Carotid Duplex Ultrasound Interpretation Summary Calcific plaque with shadowing right carotid bulb with less than 50% stenosis o f the internal carotid artery Less than 50% stenosis right external carotid artery Heterogenous smooth plaque at the proximal left internal carotid artery with le ss than 50% stenosis Less than 50% stenosis left external carotid artery Patent and antegrade vertebral arteries bilaterally No change from the previous examination of October 25, 2019 Ordering Physician: Shantell Gomez Referring Physician: Balwinder Au Performed By: Suyapa Sommer, JESICA, RVT
--- NOTE | 2021-05-13 13:07 | ECHOD_ITS ---
Reason For Study: SYNCOPE Procedure This was a 2D Doppler, Color Flow transthoracic echocardiogram. The study was technically difficult. Exam performed portable in patient room. Left Ventricle Normal LV size. Mild concentric left ventricular hypertrophy. Left ventricular systolic function is normal. The estimated ejection fraction is 55 %. No regional wall motion abnormalities noted. Right Ventricle Normal RV size. Normal systolic function. Atria Normal left atrium. Normal right atrium. Mitral Valve Normal mitral valve. Tricuspid Valve Normal tricuspid valve. Mild (1+) tricuspid valve insufficiency. Pulmonary artery systolic pressure is 28 mmHg. Aortic Valve Trisinus/trileaflet aortic valve. Mild-Moderate (1-2+) aortic valve insufficiency. Pulmonic Valve Normal pulmonic valve. Great Vessels Mildly dilated aortic root. The pulmonary artery is normal size. Normal inferior vena cava. Pericardium/Pleural No pericardial effusion. MMode/2D Measurements & Calculations LVIDd: 4.6 cm IVSd: 1.3 cm Ao root diam: 4.2 cm LVIDs: 3.7 cm LVPWd: 1.3 cm RVDd: 3.2 cm FS: 19.3 % LAV(MOD-bp): 69.3 ml LA A4 area: 21.3 cm2 LA dimension(2D): 4.4 cm LAV(MOD-bp) Indexed: 34.0 ml/m2 LAV(MOD-sp2): 60.9 ml LAV(MOD-sp4): 64.6 ml RA A4 area: 17.3 cm2 Doppler Measurements & Calculations MV E max leia: 103.1 cm/sec Ao V2 max: 115.4 cm/sec AI max leia: 446.4 cm/sec Ao max P.4 mmHg AI max P.8 mmHg AI dec slope: 323.1 cm/sec2 AI P1/2t: 404.7 msec LV V1 max: 91.8 cm/sec PA V2 max: 93.2 cm/sec TR max leia: 243.5 cm/sec LV V1 max P.4 mmHg TR max P.7 mmHg ECHO/Echo Complete Interpretation Summary Normal LV size. Mild concentric left ventricular hypertrophy. Left ventricular systolic function is normal. The estimated ejection fraction is 55 %. Mild-Moderate (1-2+) aortic valve insufficiency. Mildly dilated aortic root. Ordering Physician: Shantell Gomez Referring Physician: GOLDEN LAL Performed By: Latosha Higgins, JESICA, RVT
[2021-05-13 13:50] LABS: Bedside Glucose 134 mg/dL (70-110)
--- NOTE | 2021-05-13 14:06 | NURSING ---
pharmacy notified that pt has not received her rocephin for her UTI yet, please send
[2021-05-13] MEDS: Ceftriaxone 1 GM/50 ML BAG IV (14:36)
[2021-05-13] MEDS: 0.9% Saline Lock 10 ML Syringe IV (14:37)
--- NOTE | 2021-05-13 16:11 | HP.PCM.HOS_ITS ---
[facility] - General General Date of Admission: 05/13/21 HPI Narrative BENNIE WALKER, is a 80 F who presented to the emergency department at [facility] on 05/13/2021 for frequent falls and concern for the need for placement and continued therapy. The patient lives alone at baseline and per the daughter has had many falls lately. When I asked her to describe how she is falling and if this was mechanical she states that most of the falls are not mechanical however a few of them have been. She states typically what happens is she will be standing with someone and she will developed a glazed look on her face but does not pass out. She has typically been able to be lowered to the floor but has had falls related to this. These episodes last approximately 1 to 2 minutes and afterwards she is not quite herself for approximately 5 minutes. There are no abnormal movements or loss of bowel or bladder. She states these have been happening for approximately a year. They are unclear how frequently they are happening but she has had 2 in this past week. The patient and her daughter both think that the primary care physician is aware but states Dr. Yeung who is her correctional food service supervisor is not aware of these episodes as far as she knows. She has a history of atrial fibrillation at baseline that is persistent and is on diltiazem and metoprolol for this she is also on full dose apixaban. She is fortunately sustained no serious injuries related to her falls. In the emergency department she is afebrile she initially had a heart rate of 120 but was given 10 mg of Cardizem and her rates returned into the 80s. On telemetry she is in atrial fibrillation and her EKG shows atrial fibrillation with no ST-T wave changes and a right bundle branch block. Her blood pressures are stable and she satting 97% on room air with a normal respiratory rate. Orthostatic vitals were not obtained in the ED. Her CBC shows a mild leukocytosis with a white count of 15.6 although when compared to previous lab it appears that she is always somewhat elevated. Her hemoglobin and platelet counts are normal. Her chemistries show normal electrolytes a serum creatinine of 1.06 which appears to be baseline, mild hyperglycemia at 178 but was otherwise normal. Her UA shows positive leuk esterase but negative nitrites, 5-10 white cells and 2+ bacteria. Her chest x-ray is unimpressive. PFSH Medical History (Updated 05/13/21 @ 16:[address] Shantell Gomez DO) Class 2 severe obesity due to excess calories with serious comorbidity and body mass index (BMI) of 35.0 to 35.9 in adult Essential (primary) hypertension Frequent falls GERD (gastroesophageal reflux disease) History of breast cancer Hyperlipidemia New onset atrial fibrillation (10/2018) Orthostatic hypotension (01/06/20) Persistent atrial fibrillation Right bundle branch block (RBBB) Syncope (01/06/20) Type 2 diabetes mellitus Home Medications apixaban 5 mg tablet 5 mg PO BID 11/30/18 [History Last Taken 01/05/20] atorvastatin 20 mg tablet 20 mg PO QHS 11/30/18 [History Last Taken 01/05/20] glipizide 5 mg tablet, extended release 24 hr 5 mg PO DAILY 11/30/18 [History Last Taken 01/05/20] magnesium oxide 400 mg PO DAILY cap 11/30/18 [History Last Taken 01/05/20] metformin 500 mg tablet,extended release 24hr 500 mg PO BID tab 11/30/18 [History Last Taken 01/05/20] metoprolol succinate 25 mg tablet,extended release 24 hr 25 mg PO DAILY #30 tab 12/14/18 [Rx Last Taken 01/05/20] diltiazem HCl 120 mg PO DAILY 02/04/21 [History Last Taken Unknown] furosemide 20 mg PO DAILY 02/04/21 [History Last Taken Unknown] potassium chloride 10 meq PO DAILY 02/04/21 [History Last Taken Unknown] cholecalciferol (vitamin D3) [Vitamin D3] 25 mcg PO QHS 05/13/21 [History Last Taken Unknown] cyanocobalamin (vitamin B-12) 1,000 mcg PO QHS 05/13/21 [History Last Taken Unknown] famotidine 40 mg PO QHS 05/13/21 [History Last Taken Unknown] ferrous sulfate [Iron (ferrous sulfate)] 325 mg PO QHS 05/13/21 [History Last T aken Unknown] Allergy/AdvReac Type Severity Reaction Status Date / Time Penicillins AdvReac Unknown Verified 05/13/21 09:37 Surgical History History of mastectomy Hx of cholecystectomy Social History (Updated 05/13/21 @ 16:[address] Shantell Gomez, DO) Smoking Status: Never smoker alcohol intake: never substance use type: does not use ROS Constitutional Constitutional: Reports weakness; Denies anorexia, change in weight, chills, fatigue, fever(s), malaise, night sweats or other Eyes Eyes: Denies blurry vision, change in eye color, change in vision, discharge from eye(s), double vision, erythema, eye pain, loss of vision or other ENT HEENT: Denies abnormal hearing, dysphagia, ear pain, epistaxis, headache(s), hearing loss, nasal congestion, nasal discharge, post nasal drip, sinus pressure, sore throat or other Cardiovascular Cardiovascular: Reports syncope; Denies chest pain, claudication, dyspnea on exertion, edema, lightheadedness, orthopnea, palpitations, paroxysmal nocturnal dyspnea, rapid heart rate or other Respiratory/Chest Respiratory/Chest: Denies cough, dyspnea, excessive phlegm production, hemoptysis, productive cough, shortness of breath at rest, shortness of breath with exertion, wheezing or other Gastrointestinal Gastrointestinal: Denies abdominal pain, coffee ground emesis, constipation, diarrhea, dyspepsia, hematemesis, hematochezia, loose stools, melena, nausea, vomiting or other Genitourinary Genitourinary: Reports urinary frequency and urinary incontinence; Denies burning urination, difficulty urinating, dysuria, hematuria, nocturia, urinary hesitancy, urinary urgency or other Musculoskeletal Musculoskeletal: Reports back pain and joint pain; Denies arthralgias, joint stiffness, joint swelling, myalgias, neck pain or other Neurologic Neurologic: Reports dizziness and syncope; Denies abnormal gait, abnormal speech, confusion, disequilibrium, focal weakness, headache(s), numbness, paresthesias, seizure-like activity, seizures, tingling, tremor(s) or other Psychiatric Psychiatric: Denies anxiety, depression, homicidal ideation, suicidal ideation or other Endocrine Endocrinology: Denies change in body appearance, cold intolerance, excessive sweating, heat intolerance, polydipsia, polyuria or other Hematologic/Lymphatic Hematologic/Lymphatic: Denies anemia, easy bleeding, easy bruising, lymphadenopathy or other Allergic/Immunologic Allergic/Immunologic: Denies rhinitis, hives, eczemia, asthma or other Vital Signs Vital Signs Vital Signs: 05/13/21 09:38 05/13/21 09:45 05/13/21 11:39 Temperature 98.4 F Temperature Source Oral Pulse Rate 120 H 89 Pulse Rate [Lying] Pulse Rate [Sitting] Pulse Rate [Standing] Respiratory Rate 20 H 22 H Respiratory Effort Normal Non-Labored Respiratory Depth Normal Respiratory Pattern Normal Blood Pressure 167/89 H 129/78 H Blood Pressure [Lying] Blood Pressure [Sitting] Blood Pressure Mean 115 95 Blood Pressure Mean [Lying] Blood Pressure Mean [Sitting] Blood Pressure Source Blood Pressure Position Blood Pressure Location Pulse Ox 97 98 96 Oxygen Delivery Method Room Air Room Air Room Air 05/13/21 12:40 05/13/21 13:26 05/13/21 13:30 Temperature 98.0 F 98.4 F Temperature Source Oral Temporal Pulse Rate 86 87 89 Pulse Rate [Lying] 66 Pulse Rate [Sitting] 51 L Pulse Rate [Standing] 39 L Respiratory Rate 17 18 Respiratory Effort Respiratory Depth Respiratory Pattern Blood Pressure 123/88 H 131/79 H Blood Pressure [Lying] 133/62 H Blood Pressure [Sitting] 132/91 H Blood Pressure Mean 99 96 Blood Pressure Mean [Lying] 85 Blood Pressure Mean [Sitting] 104 Blood Pressure Source Monitor Blood Pressure Position Semi-Fowlers Blood Pressure Location Left Forearm Pulse Ox 95 95 Oxygen Delivery Method Room Air Room Air 05/13/21 14:40 05/13/21 15:07 Temperature Temperature Source Pulse Rate 87 Pulse Rate [Lying] Pulse Rate [Sitting] Pulse Rate [Standing] Respiratory Rate Respiratory Effort Respiratory Depth Respiratory Pattern Blood Pressure Blood Pressure [Lying] Blood Pressure [Sitting] Blood Pressure Mean Blood Pressure Mean [Lying] Blood Pressure Mean [Sitting] Blood Pressure Source Blood Pressure Position Blood Pressure Location Pulse Ox 99 Oxygen Delivery Method Room Air Weight Weight: 93.7 kg Body Mass Index (BMI) 34.3 Physical Exam Const alert, oriented x3 and no apparent distress Constitutional Narrative: Very pleasant elderly obese white female sitting up in bed, daughter at bedside, nontoxic and patient appears comfortable General Appearance: cooperative HEENT normocephalic, hearing grossly normal bilaterally and moist oral mucous membranes HEENT Narrative: Patient with bilateral swelling in the frontotemporal area of her skull related to recent falls where she had bruising and injury, left side shows healing ecchymosis with yellowish-green discoloration, dentures in place, Mallampati 2-3, no thrush Eyes PERRL, EOMs intact bilaterally and conjunctivae normal Eyes Narrative: No scleral icterus Neck no lymphadenopathy, supple, no JVD and no carotid bruits Neck Narrative: Midline trachea midline, no thyroid enlargement Resp normal respiratory effort, no retractions, no use of accessory muscles and clear to auscultation bilaterally Auscultation: Negative for crackles, rales, rhonchi or wheezes Cardio S1 normal heart sound, S2 normal heart sound, no murmurs, no rub, no gallops, no clicks and no JVD Cardio Narrative: Irregularly irregular rhythm with a controlled rate GI normal to inspection, nondistended, normoactive bowel sounds, soft to palpation, non-tender and non-distended Extremity no clubbing, cyanosis or edema Peripheral Pulses: Yes pulses 2+ throughout Skin no rashes or lesions noted, no wounds, skin turgor normal, no jaundice, no petechiae and no mottling Skin Narrative: Few scattered ecchymosis Neuro oriented x3, CN's II-XII intact bilaterally, moves all extremities and no focal motor deficits Neuro Narrative: Reflexes are 2+ throughout, generalized weakness Sensorium / Orientation: awake and alert Speech: speech normal Psych affect normal Results Lab / Micro Data Result Diagrams: 05/13/21 10:55 05/13/21 10:55 Labs: Laboratory Results - last 24 hr 05/13/21 10:55: WBC 15.6 H, RBC 4.42, Hgb 12.0, Hct 39.3, MCV 88.9, MCH 27.1, MCHC 30.5 L, RDW Std Deviation 49.8 H, RDW Coeff of Stacey 15.1 H, Plt Count 426, MPV 9.1, Immature Gran % (Auto) 0.500, Neut % (Auto) 84.2 H, Lymph % (Auto) 6.0 L, [place] % (Auto) 8.7, Eos % (Auto) 0.1, Baso % (Auto) 0.5, Absolute Neuts (auto) 13.1 H, Absolute Lymphs (auto) 0.94, Nucleated RBC % 0 05/13/21 10:55: Sodium 136, Potassium 3.9, Chloride 106, Carbon Dioxide 22.0, Anion Gap 8, BUN 17, Creatinine 1.08 H, Estim Creat Clear Calc 36.76, Est GFR (MDRD) Af Amer 63, Est GFR (MDRD) Non-Af 52 L, BUN/Creatinine Ratio 15.7, G lucose 178 H, Calcium 9.9 05/13/21 12:03: Urine Color Yellow, Urine Clarity Clear, Urine pH 5.0, Ur Specific [place] 1.010, Urine Protein Negative, Urine Glucose (UA) Normal, Urine Ketones Negative, Urine Occult Blood Negative, Urine Nitrite Negative, Urine Bilirubin Negative, Urine Urobilinogen Normal, Ur Leukocyte Esterase 100 H, Urine RBC 0 SEEN, Urine WBC 5-10 SEEN, Ur Squamous Epith Cells 0 SEEN, Urine Bacteria 2+, Urine Mucus 0 SEEN 05/13/21 13:47: POC Glucose 134 H Rhythm Strip Rhythm Strip: A-fib Rate: 117 Ectopy: None Radiology Impression Chest X-Ray 05/13/21 10:07 IMPRESSION: No active disease. Electronically Signed: Leonard Chowdary MD at 11:44 EST Tel , Service support , Assessment & Plan Assessment/Plan (1) Falls: (2) Leukocytosis: (3) Acute UTI: (4) Atrial fibrillation with rapid ventricular response: (5) Persistent atrial fibrillation: (6) Syncope and collapse: PLAN: Syncope/unresponsiveness -Has been having these episodes for at least a year to 2 per family -Frontal is large including partial complex seizure, arrhythmia, orthostasis, etc. -With history of atrial fibrillation I would be concerned that she could possibly have sick sinus syndrome -She has had multiple CTs of her head recently this could show a mild chronic atrophy with ischemic white matter changes -It does not appear that the patient directly passes out but she has periods of unresponsiveness -Check echocardiogram -Check EEG -Check carotid Dopplers -Watch on telemetry -Check orthostatic vitals -Check TSH Falls -These appear to be both occasionally mechanical in nature but predominantly related to the above issues -PT/OT consultation -May need placement at discharge Possible acute urinary tract infection -UA is suggestive of UTI and patient does have frequency and incontinence -Start ceftriaxone -Check culture Persistent atrial fibrillation -Patient had RVR in the emergency department that responded to a one-time dose of Cardizem -Patient is on Cardizem and metoprolol at home-we will continue these at this time and continue to monitor on telemetry -Continue anticoagulation History of breast CA -No current issues GERD -Continue famotidine Hyperlipidemia -Continue atorvastatin DM-2 -Hold home oral agents -SSI -Accu-Cheks before meals and at bedtime DVT prophylaxis -Patient is on chronic Eliquis CODE STATUS -DNR CCA no intubation per discussion with the patient in the emergency department Charges/Coding Visit Charges Inpatient E&M: 59385 Init Hosp L3
--- NOTE | 2021-05-13 16:12 | NURSING ---
report called to reese on PCU-pt going to room 117 transported by bed and monitor by this nurse pt daughter Reese updated of pt transfer and that pt condition is unchanged since admission and that she appears stable
[2021-05-13] MEDS: Cyanocobalamin 500 MCG Tablet 1000 MCG PO (21:17)
[2021-05-13] MEDS: Famotidine 20 MG Tablet 40 MG PO (21:18)
[2021-05-13] MEDS: Ferrous Sulfate 325 MG Tablet PO (21:18)
[2021-05-13] MEDS: Atorvastatin Calcium 20 MG Tablet PO (21:18)
[2021-05-13] MEDS: Cholecalciferol (VIT D3) 25 MCG TABLET (1,000 UNITS) PO (21:21)
[2021-05-13] MEDS: APIXABAN 5 MG TABLET PO (22:16)
[2021-05-14] VITALS (10 sets, daily range): BP systolic 123–156; BP diastolic 80–104; PULSE 75–123; RESP 16–18; TEMP 36.6–37.2; O2SAT 96–97
[2021-05-14 07:16] LABS: Absolute Lymphocyte Count 1.58 X10^3/uL (0.83-4.51); Absolute Neutrophil Count 9.8 X10^3/uL (2.0-7.7); Basophil# 0.08 X10^3/uL; Basophil% 0.6 % (0-1); Eosinophil# 0.14 X10^3/uL; Eosinophils% 1.1 % (0-5); Hematocrit 34.7 % (37-47); Hemoglobin 10.9 g/dL (12.0-15.0); Lymphocyte # 1.58 X10^3/ul (0.83-4.51); Mean Corp Hgb Conc 31.4 g/dL (32-36); Mean Corpuscular Volume 85.9 fL (81-99); Mean Platelet Vol. 9.4 fl (6.2-12.0); Monocyte# 1.46 X10^3/uL; Monocyte% 11.1 % (0-10); NRBC Flagged by Analyzer 0 % (0-5); Neutrophil # 9.82 X10^3/uL (2.7-7.7); Neutrophil % 74.7 % (47-70); Platelet Count 394 K/mm3 (150-450); RBC Distribution Width CV 15.2 % (11.6-14.6); RBC Distribution Width SD 47.5 fl (35.1-43.9); Red Blood Count 4.04 M/mm3 (4.2-5.4); White Blood Count 13.1 K/mm3 (4.4-11.0)
[2021-05-14 07:43] LABS: ALB/GLOB Ratio 0.6 RATIO (0.9-2.4); AST(SGOT) 21 U/L (15-37); Alanine Aminotransfer ALT/SGPT 20 U/L (13-56); Albumin, Serum 2.5 g/dL (3.2-5.0); Alkaline Phosphatase 124 U/L (45-117); Anion Gap 7 (5-15); BUN 19 mg/dL (7-18); BUN/Creat Ratio 20.3 RATIO (10-20); Calcium,Total 9.5 mg/dL (8.5-10.1); Chloride 105 mmol/L (98-107); Creatinine, Serum 0.94 mg/dL (0.55-1.02); EST Glomerular Filtration Rate 61 mL/min (>60); Est Glom Filt Rate - Afr Amer 74 mL/min (>60); Estimated Creatinine Clearance 42.24 ml/min; Globulin 4.3 g/dL (2.2-4.2); Glucose 133 mg/dL (74-106); Magnesium 1.9 mg/dL (1.6-2.6); Potassium 3.7 mmol/L (3.5-5.1); Protein, Total 6.8 g/dL (6.4-8.2); Sodium Level 135 mmol/L (136-145)
--- NOTE | 2021-05-14 07:58 | TELEMED_ITS ---
[facility] Telemed has confirmed receipt of a request for visit. This document confirms receipt of the order initiating the consult. To find the results of the consultation, please view the patient's reports for the scanned Telemed Consult.
[2021-05-14 08:11] LABS: International Normalized Ratio 1.6; Prothrombin Time (Protime)PT. 18.6 SECONDS (11.7-14.9)
--- NOTE | 2021-05-14 10:35 | CASEMGMT ---
THOMAS REED assessment: Face to Face with patient for initial transition planning/care coordination assessment. RN BRIANNA introduced self and role at [facility], pt voices understanding and consents to assessment. Pt is sitting up in bed in no distress on room air. Pt is A/Ox4 and answers all questions appropriately. Care providers, pharmacy, and demographics verified. Presentation: Pt c/o general pain x1 month which is worse after sliding out of bed yesterday Admitting dx: Worsening debility, UTI PCP: Roe Specialists: Anjana cardio Preferred Pharmacy: [facility] Insurance: [facility] A/B, [place] Prescription Benefit: Pt states is self pay for prescriptions and states no concerns at this time. Living Will/HPOA: Pt does not have LW/HPOA and would like to complete at this time. Surinder vargas, voices understanding. LNOK: Miguelina Wiggins, daughter; Balwinder Wiggins, son Living Arrangements: Pt lives alone on main level of 2 story home with ramp in and states no concerns at home. Pt is normally independent with ADL's. Transportation: Pt states kids drive and states no transportation concerns. DME/HHC: Pt has the following DME: cane, walker, medical alert, grab bars, and shower chair. Pt states no need for any further DME. Pt states no hx of HHC or SNF. Pt states some concerns with going home at time of discharge. Pt is retired. Pt states does not smoke cigarettes or drink ETOH. Pt voices no further concerns/needs. CM to follow for PT/OT evals and any further discharge planning/needs. Advised pt to ask for CM if any further questions/concerns/need arise, voices understanding. Pt Goal: Home Plan: TBD, pending therapy evals. SStaten THOMAS REED
[2021-05-14] MEDS: Ceftriaxone 1 GM/50 ML BAG IV (10:38)
[2021-05-14] MEDS: Losartan Potassium 50 MG Tablet PO (10:39)
[2021-05-14] MEDS: Furosemide 20 MG Tablet PO (10:39)
[2021-05-14] MEDS: Magnesium Chloride 64 MG Delay Rel.Tablet 128 MG PO (10:39)
[2021-05-14] MEDS: Potassium Chloride Oral Tablet 10 MEQ PO (10:39)
[2021-05-14] MEDS: dilTIAZem CD 120 MG Capsule PO (10:39)
[2021-05-14] MEDS: Metoprolol(XL)Succ 25 MG Tablet PO (10:40)
--- NOTE | 2021-05-14 11:13 | CASEMGMT ---
Palliative screening tool completed and pt does not qualify for palliative referral at this time. SStapolinar GUZMAN CM
[2021-05-14] MEDS: APIXABAN 5 MG TABLET PO ×2 (11:46→20:49)
--- NOTE | 2021-05-14 13:40 | CASEMGMT ---
Per RN CM patient would like to complete a Healthcare Power of Hands And Dial Inspector and a Healthcare Living Will. SW met with patient and her daughter. Introduced self and role at [facility]. Documents were explained and completed. Copies made and given to patient along with originals. A copy of each was also placed in patient's chart. SW also spoke with patient and her daughter about d/c plan. Both are undetermined at this time, but they were agreeable to SNF lists for [facility]. SW provided patient and her daughter with a list of SNF providers including quality and resource use data and consistent with the patient?s preferred geographic region, medical needs, and insurance network. Patient is interested in [facility] TCU. SW let the know that right now the unit is full, but SW can put her on a list. SW asked them to have a couple of back ups in the event TCU does not have an opening by the time she is ready for discharge. JUAN called Chanda in TCU and left her a voice mail with patient's name and room number for TCU list. Carmen Kerr REFUND CLERKNoel EDMONDSON
--- NOTE | 2021-05-14 15:14 | NURSING ---
This RN reviewed SN charting
--- NOTE | 2021-05-14 19:33 | PN.HOSP_ITS ---
Subjective Subjective Patient was seen and examined today, echocardiogram showed a normal EF with mild to moderate aortic valve insufficiency, no significant stenosis was noted on the patient's carotid duplex ultrasound. I talked to the patient about going to a group home facility for short-term rehab services, patient knows that she is at rest going home and has had several falls at home. Objective Data Objective Data Vital Signs: Vital Signs Temp Pulse Resp BP Pulse Ox 97.9 F 115 H 18 123/104 H 97 05/14/21 14:47 05/14/21 19:13 05/14/21 14:47 05/14/21 14:47 05/14/21 14:47 Oxygen Delivery Method Room Air Weight: 93.8 kg Body Mass Index (BMI) 34.3 Intake & Output: Intake and Output for Last 24 Hours 05/12/21 05/13/21 05/14/21 23:59 23:59 23:59 Intake Total 170 / 170 50 / 50 Output Total 1150 / 1150 Balance 170 / 70 -1100 / -1100 Lab / Micro Data Result Diagrams: 05/14/21 06:28 05/14/21 06:28 Labs: Laboratory Results - last 24 hr 05/14/21 06:28: WBC 13.1 H, RBC 4.04 L, Hgb 10.9 L, Hct 34.7 L, MCV 85.9, MCH 27.0, MCHC 31.4 L, RDW Std Deviation 47.5 H, RDW Coeff of Stacey 15.2 H, Plt Count 394, MPV 9.4, Immature Gran % (Auto) 0.500, Neut % (Auto) 74.7 H, Lymph % (Auto) 12.0 L, Moca % (Auto) 11.1 H, Eos % (Auto) 1.1, Baso % (Auto) 0.6, Absolute Neuts (auto) 9.8 H, Absolute Lymphs (auto) 1.58, Nucleated RBC % 0 05/14/21 06:28: PT 18.6 H, INR 1.6 05/14/21 06:28: Sodium 135 L, Potassium 3.7, Chloride 105, Carbon Dioxide 23.0, Anion Gap 7, BUN 19 H, Creatinine 0.94, Estim Creat Clear Calc 42.24, Est GFR (MDRD) Af Amer 74, Est GFR (MDRD) Non-Af 61, BUN/Creatinine Ratio 20.3 H, Glucose 133 H, Calcium 9.5, Magnesium 1.9, Total Bilirubin 0.50, AST 21, ALT 20, Alkaline Phosphatase 124 H, Total Protein 6.8, Albumin 2.5 L, Globulin 4.3 H, Albumin/Globulin Ratio 0.6 L Micro: Microbiology 05/13/21 12:03 Urine, Catheterized Urine 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 Radiography Diagnostic Testing: Radiology Impression Carotid Duplex 05/13/21 13:07 Interpretation Summary Calcific plaque with shadowing right carotid bulb with less than 50% stenosis of the internal carotid artery Less than 50% stenosis right external carotid artery Heterogenous smooth plaque at the proximal left internal carotid artery with less than 50% stenosis Less than 50% stenosis left external carotid artery Patent and antegrade vertebral arteries bilaterally No change from the previous examination of October 25, 2019 Ordering Physician: Shantell Gomez Referring Physician: Golden Lal Performed By: Suyapa Sommer, JESICA, RVT Echocardiogram 05/13/21 13:07 Interpretation Summary Normal LV size. Mild concentric left ventricular hypertrophy. Left ventricular systolic function is normal. The estimated ejection fraction is 55 %. Mild-Moderate (1-2+) aortic valve insufficiency. Mildly dilated aortic root. Ordering Physician: Shantell Gomez Referring Physician: GOLDEN LAL Performed By: Latosha Higgins, RDCS, RVT Rhythm Strip Rhythm Strip: A-fib Rate: 117 Ectopy: None Physical Exam Const alert, oriented x3 and no apparent distress General Appearance: cooperative, well kempt and well developed Orientation / Consciousness: awake, oriented to person, oriented to place and oriented to time HEENT normocephalic, head/scalp atraumatic and moist oral mucous membranes Head and Scalp: normocephalic Eyes PERRL, EOMs intact bilaterally and conjunctivae normal Neck nuchal rigidity, supple, no JVD, thyroid normal and no carotid bruits General: trachea midline Resp normal respiratory effort, no retractions, no use of accessory muscles and clear to auscultation bilaterally Auscultation: Negative for rales, rhonchi or wheezes Cardio S1 normal heart sound, S2 normal heart sound, no murmurs, no rub and no gallops Cardio Narrative: Heart rate and rhythm was irregular GI normal to inspection, nondistended, normoactive bowel sounds, soft to palpation, non-tender and non-distended Extremity no clubbing, cyanosis or edema Skin no rashes or lesions noted General Skin Exam: no breakdown Neuro oriented x3, CN's II-XII intact bilaterally, no focal motor deficits and no sensory deficits noted Sensorium / Orientation: awake and alert Speech: speech normal Psych thought process normal and affect normal Assessment & Plan Assessment/Plan (1) Syncope and collapse: PLAN: 1. Recurrent syncopal episodes-etiology is unknown at this time, patient's work-up so far has not provided an etiology for the patient's syncopal episodes. Most probably the patient will need an event monitor at the time of discharge. #2 persistent atrial fibrillation-patient is currently on rate control medication and anticoagulation. #3 acute cystitis-patient is currently on Rocephin, will await culture results. #4 generalized deconditioning-PT and OT are seeing the patient, I suspect she will need to go to a group home facility for short-term rehab services. #5 essential hypertension Charges/Coding Visit Charges Inpatient E&M: 91023 Subs Hosp L2
[2021-05-14] MEDS: Cyanocobalamin 500 MCG Tablet 1000 MCG PO (20:48)
[2021-05-14] MEDS: Famotidine 20 MG Tablet 40 MG PO (20:48)
[2021-05-14] MEDS: Ferrous Sulfate 325 MG Tablet PO (20:48)
[2021-05-14] MEDS: Acetaminophen 325 MG Tablet 650 MG PO (20:48)
[2021-05-14] MEDS: Atorvastatin Calcium 20 MG Tablet PO (20:48)
[2021-05-14] MEDS: Cholecalciferol (VIT D3) 25 MCG TABLET (1,000 UNITS) PO (20:48)
--- NOTE | 2021-05-14 21:29 | PCS.PANDOC ---
PANDEMIC DOCUMENTATION INITIATED: Date: 02/12/2021 Time: 190
[2021-05-15] VITALS (10 sets, daily range): BP systolic 134–151; BP diastolic 63–98; PULSE 80–109; RESP 18–20; TEMP 36.9–37.1; O2SAT 95–96
[2021-05-15] MEDS: Acetaminophen 325 MG Tablet 650 MG PO ×2 (07:33→20:22)
[2021-05-15] MEDS: 0.9% Saline Lock 10 ML Syringe IV (09:16)
[2021-05-15] MEDS: Ceftriaxone 1 GM/50 ML BAG IV (09:16)
[2021-05-15] MEDS: APIXABAN 5 MG TABLET PO ×2 (09:18→20:22)
[2021-05-15] MEDS: Potassium Chloride Oral Tablet 10 MEQ PO (09:18)
[2021-05-15] MEDS: Losartan Potassium 50 MG Tablet PO (09:18)
[2021-05-15] MEDS: Metoprolol(XL)Succ 25 MG Tablet PO (09:18)
[2021-05-15] MEDS: dilTIAZem CD 120 MG Capsule PO (09:18)
[2021-05-15] MEDS: Furosemide 20 MG Tablet PO (09:18)
[2021-05-15] MEDS: Magnesium Chloride 64 MG Delay Rel.Tablet 128 MG PO (09:18)
--- NOTE | 2021-05-15 11:42 | CASEMGMT ---
Chanda in TCU called JUAN and said there will be a bed open tomorrow if patient would still like TCU. JUAN spoke with patient and let her know TCU will have a bed for her tomorrow. Patient is in agreement with going to TCU. Plan: d/c to [facility] TCU under skilled level of care. Carmen EDMONDSON
--- NOTE | 2021-05-15 19:59 | PCM.PN.HOSP ---
Subjective Subjective Patient was seen and examined today, work-up so far for the patient's syncope has not indicated an etiology of her syncope. Patient continues to need maximal assistance to get up, physical therapy will be seeing the patient again today. I suspect that the patient will need to go to an extended care facility for at least short-term rehab services when she is discharged from the hospital. Patient's urine culture returned positive for Klebsiella pneumoniae which is sensitive to multiple antibiotics, I will stop her Rocephin and place her on oral Keflex. Objective Data Objective Data Vital Signs: Vital Signs Temp Pulse Resp BP Pulse Ox 98.7 F 80 18 134/95 H 95 05/15/21 16:05 05/15/21 16:05 05/15/21 16:05 05/15/21 16:05 05/15/21 16:05 Oxygen Delivery Method Room Air Weight: 96.9 kg Body Mass Index (BMI) 34.3 Intake & Output: Intake and Output for Last 24 Hours 05/13/21 05/14/21 05/15/21 23:59 23:59 23:59 Intake Total 170 / 170 150 / 150 650 / 650 Output Total 1375 / 1375 500 / 500 Balance 170 / 70 -1225 / -1225 150 / 150 Lab / Micro Data Result Diagrams: 05/14/21 06:28 05/14/21 06:28 Micro: Microbiology 05/13/21 12:03 Urine, Catheterized Urine Culture - Final Klebsiella pneumoniae sp pneum Rhythm Strip Rhythm Strip: A-fib Rate: 117 Ectopy: None Physical Exam Narrative Const alert, oriented x3 and no apparent distress General Appearance: cooperative, well kempt and well developed Orientation / Consciousness: awake, oriented to person, oriented to place and oriented to time HEENT normocephalic, head/scalp atraumatic and moist oral mucous membranes Head and Scalp: normocephalic Eyes PERRL, EOMs intact bilaterally and conjunctivae normal Neck nuchal rigidity, supple, no JVD, thyroid normal and no carotid bruits General: trachea midline Resp normal respiratory effort, no retractions, no use of accessory muscles and clear to auscultation bilaterally Auscultation: Negative for rales, rhonchi or wheezes Cardio S1 normal heart sound, S2 normal heart sound, no murmurs, no rub and no gallops Cardio Narrative: Heart rate and rhythm was irregular GI normal to inspection, nondistended, normoactive bowel sounds, soft to palpation, non-tender and non-distended Extremity no clubbing, cyanosis or edema Skin no rashes or lesions noted General Skin Exam: no breakdown Neuro oriented x3, CN's II-XII intact bilaterally, no focal motor deficits and no sensory deficits noted Sensorium / Orientation: awake and alert Speech: speech normal Psych thought process normal and affect normal Assessment & Plan Assessment/Plan (1) Syncope and collapse: PLAN: 1. Recurrent syncopal episodes-etiology is unknown at this time, patient's work-up so far has not provided an etiology for the patient's syncopal episodes. Most probably the patient will need an event monitor at the time of discharge. #2 persistent atrial fibrillation-patient is currently on rate control medication and anticoagulation. #3 acute cystitis-patient's Rocephin will be stopped, she was placed on Keflex 500 mg twice daily #4 generalized deconditioning-PT and OT are seeing the patient, I suspect she will need to go to a nursing home facility for short-term rehab services. #5 essential hypertension Charges/Coding Visit Charges Inpatient E&M: 00854 Subs Hosp L2
[2021-05-15] MEDS: Atorvastatin Calcium 20 MG Tablet PO (20:22)
[2021-05-15] MEDS: Famotidine 20 MG Tablet 40 MG PO (20:23)
[2021-05-15] MEDS: Ferrous Sulfate 325 MG Tablet PO (20:23)
[2021-05-15] MEDS: Cholecalciferol (VIT D3) 25 MCG TABLET (1,000 UNITS) PO (20:23)
[2021-05-15] MEDS: Cyanocobalamin 500 MCG Tablet 1000 MCG PO (20:28)
[2021-05-16] VITALS (7 sets, daily range): BP systolic 116–128; BP diastolic 73–82; PULSE 82–99; RESP 16–18; TEMP 36.6–36.9; O2SAT 96–97
[2021-05-16] MEDS: Acetaminophen 325 MG Tablet 650 MG PO (02:57)
[2021-05-16] MEDS: Potassium Chloride Oral Tablet 10 MEQ PO (09:16)
[2021-05-16] MEDS: APIXABAN 5 MG TABLET PO (09:17)
[2021-05-16] MEDS: Metoprolol(XL)Succ 25 MG Tablet PO (09:17)
[2021-05-16] MEDS: dilTIAZem CD 120 MG Capsule PO (09:17)
[2021-05-16] MEDS: Losartan Potassium 50 MG Tablet PO (09:17)
[2021-05-16] MEDS: Magnesium Chloride 64 MG Delay Rel.Tablet 128 MG PO (09:17)
[2021-05-16] MEDS: Furosemide 20 MG Tablet PO (09:17)
[2021-05-16] MEDS: Cephalexin 500 MG Capsule PO (09:23)
--- NOTE | 2021-05-16 14:12 | TREXTCAR_ITS ---
Diet 05/13/21 13:32 Diet: Cardiac - Heart Healthy Food consistency:: Regular Liquid Consistency:: Regular/Thin Is pt able to select menu?: Yes Diet: Consistent Carb - Calorie Controlled Food consistency:: Regular Liquid Consistency:: Regular/Thin How many daily calories?: 1800 calorie Therapies Weight Bearing: Full weight bearing Physical Therapy: Eval and Treat Occupational Therapy: Eval and Treat Problem/Diagnosis (1) Syncope and collapse: Status: Acute Allergies/Procedures Done in Hospital Allergies Penicillins Adverse Reaction (Verified 05/13/21 09:37) Unknown Procedures: None Type of Care/Length of Stay Estimated LOS: Convalescent Care Less Than 30 days Type of Care Needed: Skilled Rehab Potential: Fair Prognosis: Good Additional Orders/Day of Discharge Day of Discharge: 05/16/21 Dietary and Speech Recommendations Dietitian Recommendations/Changes: Will continue 1800 calorie/cardiac diet for now. ONS only if PO fails at meals, defer at this time. Discharge Plan Admission Admit Date/Time: 05/13/21 12:30 Primary Reason for Your Visit: failure to thrive. falls. Attending Provider: Bautista Lucas Primary Care Provider: Balwinder Au Discharge Orders/Prescriptions Prescriptions: Continued magnesium oxide 400 mg capsule 400 mg PO DAILY RF: 0 glipizide 5 mg tablet extended release 24hr 5 mg PO DAILY RF: 0 metformin 500 mg tablet extended release 24hr 500 mg PO BID RF: 0 Eliquis 5 mg tablet 5 mg PO BID RF: 0 atorvastatin 20 mg tablet 20 mg PO QHS RF: 0 metoprolol succinate 25 mg tablet extended release 24 hr 25 mg PO DAILY Qty: 30 RF: 11 potassium chloride 10 mEq tablet extended release 10 meq PO DAILY RF: 0 diltiazem HCl 120 mg capsule,extended release 24 hr 120 mg PO DAILY RF: 0 furosemide 20 mg Tablet 20 mg PO DAILY RF: 0 famotidine 40 mg tablet 40 mg PO QHS RF: 0 cyanocobalamin (vitamin B-12) 1,000 mcg Tablet 1,000 mcg PO QHS RF: 0 ferrous sulfate [Iron (ferrous sulfate)] 325 mg (65 mg iron) Tablet 325 mg PO QHS RF: 0 cholecalciferol (vitamin D3) [Vitamin D3] 25 mcg (1,000 unit) Capsule 25 mcg PO QHS RF: 0 Referrals / Follow Up: Balwinder Au MD [Primary Care Provider] - Within 2 Weeks Disposition Disposition (needs filled in before D/C Order can be placed): Retirement Facility
--- NOTE | 2021-05-16 14:19 | PCM.DC.SUM ---
Providers Date of Admission: 05/13/21 Primary Care Physician: Dr. Balwinder Au MD Reason For Visit: WORSENING DEBILITY/UTI Diagnosis Discharge Diagnosis (1) Syncope and collapse: Status: Acute Code(s): R55 - Syncope and collapse Medications at Discharge Home Medications apixaban 5 mg tablet 5 mg PO BID 11/30/18 atorvastatin 20 mg tablet 20 mg PO QHS 11/30/18 glipizide 5 mg tablet, extended release 24 hr 5 mg PO DAILY 11/30/18 magnesium oxide 400 mg PO DAILY cap 11/30/18 metformin 500 mg tablet,extended release 24hr 500 mg PO BID tab 11/30/18 metoprolol succinate 25 mg tablet,extended release 24 hr 25 mg PO DAILY #30 tab 12/14/18 diltiazem HCl 120 mg PO DAILY 02/04/21 furosemide 20 mg PO DAILY 02/04/21 potassium chloride 10 meq PO DAILY 02/04/21 cholecalciferol (vitamin D3) [Vitamin D3] 25 mcg PO QHS 05/13/21 cyanocobalamin (vitamin B-12) 1,000 mcg PO QHS 05/13/21 famotidine 40 mg PO QHS 05/13/21 ferrous sulfate [Iron (ferrous sulfate)] 325 mg PO QHS 05/13/21 Hospital Course Operations None Procedures Electroencephalogram Summary of Care Provided Minutes Spent on Discharge: 32 Hospital Course: Is 80-year-old female presents with falls. These falls been happening for over a year. But had to over the past week. Patient underwent an EEG that was negative for seizure, 2D echocardiogram that showed an EF 55%, carotid duplex that showed less than 50% stenosis bilaterally. Patient otherwise feels well. Patient be discharged with event monitor to see if she is having any arrhythmia that could be contributing to this. Patient will be discharged to the transitional care unit for further rehab. Physical Exam Const alert and no apparent distress Resp normal respiratory effort, no retractions and no use of accessory muscles Cardio regular rate, regular rhythm, S1 normal heart sound and S2 normal heart sound GI normal to inspection, nondistended, normoactive bowel sounds, soft to palpation and non-tender Extremity normal to inspection Neuro Sensorium / Orientation: awake Weight / BMI Weight Weight: 95.7 kg Body Mass Index (BMI) 34.3 ABG / Lab / Microbiology Data Result Diagrams: 05/14/21 06:28 05/14/21 06:28 Microbiology: Microbiology 05/13/21 12:03 Urine, Catheterized Urine Culture - Final Klebsiella pneumoniae sp pneum Meaningful Use Info Meaningful Use Diagnoses (Choose all that apply): None applicable Discharge Plan Admission Admit Date/Time: 05/13/21 12:30 Primary Reason for Your Visit: failure to thrive. falls. Attending Provider: Bautista Lucas Primary Care Provider: Balwinder Au Discharge Orders/Prescriptions Prescriptions: Continued magnesium oxide 400 mg capsule 400 mg PO DAILY RF: 0 glipizide 5 mg tablet extended release 24hr 5 mg PO DAILY RF: 0 metformin 500 mg tablet extended release 24hr 500 mg PO BID RF: 0 Eliquis 5 mg tablet 5 mg PO BID RF: 0 atorvastatin 20 mg tablet 20 mg PO QHS RF: 0 metoprolol succinate 25 mg tablet extended release 24 hr 25 mg PO DAILY Qty: 30 RF: 11 potassium chloride 10 mEq tablet extended release 10 meq PO DAILY RF: 0 diltiazem HCl 120 mg capsule,extended release 24 hr 120 mg PO DAILY RF: 0 furosemide 20 mg Tablet 20 mg PO DAILY RF: 0 famotidine 40 mg tablet 40 mg PO QHS RF: 0 cyanocobalamin (vitamin B-12) 1,000 mcg Tablet 1,000 mcg PO QHS RF: 0 ferrous sulfate [Iron (ferrous sulfate)] 325 mg (65 mg iron) Tablet 325 mg PO QHS RF: 0 cholecalciferol (vitamin D3) [Vitamin D3] 25 mcg (1,000 unit) Capsule 25 mcg PO QHS RF: 0 Other Ambulatory Orders: 30-Day Event Recorder (Routine) Location: None Selected Ordered By: Dr. Bautista Lucas Referrals / Follow Up: Balwinder Au MD [Primary Care Provider] - Within 2 Weeks Disposition Disposition (needs filled in before D/C Order can be placed): Retirement Facility Charges/Coding Visit Charges Inpatient E&M: 25497 Disch Hosp
--- NOTE | 2021-05-16 14:24 | PHA.DC.MR ---
Pharmacy Service has performed discharge medication reconciliation for this patient. The patient's discharge medication list was reviewed for discrepancies and discrepancies were resolved. Home Medications apixaban 5 mg tablet 5 mg PO BID 11/30/18 atorvastatin 20 mg tablet 20 mg PO QHS 11/30/18 glipizide 5 mg tablet, extended release 24 hr 5 mg PO DAILY 11/30/18 magnesium oxide 400 mg PO DAILY cap 11/30/18 metformin 500 mg tablet,extended release 24hr 500 mg PO BID tab 11/30/18 metoprolol succinate 25 mg tablet,extended release 24 hr 25 mg PO DAILY #30 tab 12/14/18 diltiazem HCl 120 mg PO DAILY 02/04/21 furosemide 20 mg PO DAILY 02/04/21 potassium chloride 10 meq PO DAILY 02/04/21 cholecalciferol (vitamin D3) [Vitamin D3] 25 mcg PO QHS 05/13/21 cyanocobalamin (vitamin B-12) 1,000 mcg PO QHS 05/13/21 famotidine 40 mg PO QHS 05/13/21 ferrous sulfate [Iron (ferrous sulfate)] 325 mg PO QHS 05/13/21
--- NOTE | 2021-05-16 15:26 | CASEMGMT ---
Patient is ready for discharge to [facility] TCU. SW notified patient. SW also called and notified patient's daughter, Miguelina. Plan: d/c to [facility] TCU under skilled level of care. Carmen EDMONDSON
--- NOTE | 2021-05-16 15:58 | NURSING ---
report called to TCU at this time
== END 2021-05-16 18:11 | disposition skilled nursing facility (03) | DRG 312 ==
LOC: ED 12:35 → MS3 13:10 → PCU 16:03
PROVIDERS: Admitting Provider Internal Medicine; Emergency Provider Emergency Medicine; PCP Family Medicine
DX: R55 Syncope and collapse (principal); I48.19 Other persistent atrial fibrillation; N30.00 Acute cystitis without hematuria; B96.1 Klebsiella pneumoniae [K. pneumoniae] as the cause of diseases classified elsewhere; R62.7 Adult failure to thrive; R29.6 Repeated falls; E11.65 Type 2 diabetes mellitus with hyperglycemia; I10 Essential (primary) hypertension; R32 Unspecified urinary incontinence; E78.5 Hyperlipidemia, unspecified; K21.9 Gastro-esophageal reflux disease without esophagitis; E66.01 Morbid (severe) obesity due to excess calories; Z68.35 Body mass index [BMI] 35.0-35.9, adult; Z79.01 Long term (current) use of anticoagulants; Z79.84 Long term (current) use of oral hypoglycemic drugs; Z79.899 Other long term (current) drug therapy; Z85.3 Personal history of malignant neoplasm of breast
CPT/HCPCS: 36415; 71045; 80048; 80053; 81001; 82962; 83735; 85025; 85610; 87077; 87086; 87088; 87186; 87426; 93005; 93306; 93880; 95819; 97110; 97162; 97166; 97530; 99285; J7040; Q9957; A4216; J3490

== ENCOUNTER 2021-05-16 18:20 | Inpatient (IN) | payer MEDICARE, BC, SELFPAY ==
[2021-05-16 18:38] VITALS: BP 154/93; PULSE 84; RESP 20; TEMP 36.6; BMI 35.2
--- NOTE | 2021-05-16 20:01 | HP.PCM_ITS ---
HPI - General General Date of Admission: 05/16/21 HPI Narrative 05/13/2021 BENNIE WALKER, is a 80 Female who presents to [facility] Emergency Department with fall. 05/13/2021 EKG atrial fibrillation, right bundle branch block, abnormal EKG. Pain all over for several months, slid out of bed. Atrial fibrillation with rapid ventricular response, improved with cardizem. UA consistent with urinary tract infection, urine culture sent, Ceftriaxone given. 05/13/2021 Admit to Hospital. Echo, EEG, Carotid doppler, Orthostatics for syncope. PT/OT for falls. Ceftriaxone IV for urinary tract infection, pending urine culture. 05/13/2021 Echo normal LV size. Mild concentric left ventricular hypertrophy. Left ventricular systolic function normal. EF 55%. 05/14/2021 EEG unremarkable. 05/14/2021 PT/OT for SNF. Continue Ceftriaxone IV for urinary tract infection. 05/15/2021 Needing maximal assistance. Urine culture growing pansensitive Klebsiella Pneumoniae, change Ceftriaxone to Keflex. Event Monitor at discharge for syncope. 05/16/2021 Admit to TCU with debility, here for rehabilitation, strengthening, prior to discharge home alone. [facility] Medical History (Updated 05/16/21 @ 20:[address] Josue Flores MD) Class 2 severe obesity due to excess calories with serious comorbidity and body mass index (BMI) of 35.0 to 35.9 in adult Essential (primary) hypertension Frequent falls GERD (gastroesophageal reflux disease) History of breast cancer Hyperlipidemia New onset atrial fibrillation (10/2018) Orthostatic hypotension (01/06/20) Persistent atrial fibrillation Right bundle branch block (RBBB) Syncope (01/06/20) Type 2 diabetes mellitus Home Medications apixaban 5 mg tablet 5 mg PO BID 11/30/18 [History Last Taken 01/05/20] atorvastatin 20 mg tablet 20 mg PO QHS 11/30/18 [History Last Taken 01/05/20] glipizide 5 mg tablet, extended release 24 hr 5 mg PO DAILY 11/30/18 [History Last Taken 01/05/20] magnesium oxide 400 mg PO DAILY cap 11/30/18 [History Last Taken 01/05/20] metformin 500 mg tablet,extended release 24hr 500 mg PO BID tab 11/30/18 [History Last Taken 01/05/20] diltiazem HCl 120 mg PO DAILY 02/04/21 [History Last Taken Unknown] furosemide 20 mg PO DAILY 02/04/21 [History Last Taken Unknown] potassium chloride 10 meq PO DAILY 02/04/21 [History Last Taken Unknown] cholecalciferol (vitamin D3) [Vitamin D3] 25 mcg PO QHS 05/13/21 [History Last Taken Unknown] cyanocobalamin (vitamin B-12) 1,000 mcg PO QHS 05/13/21 [History Last Taken Unknown] famotidine 40 mg PO QHS 05/13/21 [History Last Taken Unknown] ferrous sulfate [Iron (ferrous sulfate)] 325 mg PO QHS 05/13/21 [History Last Taken Unknown] metoprolol succinate 25 mg PO DAILY 05/16/21 [History Last Taken Unknown] Allergy/AdvReac Type Severity Reaction Status Date / Time Penicillins AdvReac Unknown Verified 05/13/21 09:37 Surgical History History of mastectomy Hx of cholecystectomy Social History (Updated 05/16/21 @ 20:[address] Josue Flores MD) household members: none Smoking Status: Never smoker alcohol intake: never substance use type: does not use ROS Constitutional Constitutional: Denies chills, fever(s) or weight gain ENT HEENT: Denies headache(s), nasal congestion or nasal discharge Cardiovascular Cardiovascular: Denies chest pain or palpitations Respiratory/Chest Respiratory/Chest: Denies cough, excessive phlegm production or shortness of breath with exertion Gastrointestinal Gastrointestinal: Denies abdominal pain, nausea or vomiting Genitourinary Genitourinary: Denies dysuria Musculoskeletal Musculoskeletal: Denies joint pain or joint swelling Integumentary Integumentary: Denies rash or wounds Neurologic Neurologic: Denies focal weakness, numbness or tingling Psychiatric Psychiatric: Denies anxiety, depression, homicidal ideation or suicidal ideation Physical Exam Const alert and oriented x3 General Appearance: cooperative HEENT normocephalic Eyes PERRL and EOMs intact bilaterally Neck supple, no JVD and no carotid bruits Resp normal respiratory effort, normal air movement and clear to auscultation bilaterally Cardio regular rate and regular rhythm GI normal to inspection, nondistended, normoactive bowel sounds, non-tender and non-distended Extremity normal capillary refill General Extremity: Negative for edema Skin no rashes or lesions noted General Skin Exam: no breakdown Psych affect normal Appearance: appropriate Results Lab / Micro Data Result Diagrams: 05/17/21 05:35 05/17/21 05:35 Assessment & Plan Assessment/Plan (1) Debility: (2) Syncope: (3) Atrial fibrillation with rapid ventricular response: (4) Urinary tract infection: (5) Breast cancer: (6) Hypertension: (7) Diabetes mellitus: (8) Hyperlipidemia: (9) Hypomagnesemia: (10) Gastroesophageal reflux disease: (11) Hypokalemia: (12) Edema: PLAN: 80 year old female with below past medical history hospitalized for fall, syncope, complicated by K. Pneumoniae urinary tract infection, admitted to TCU with debility, here for rehabilitation, strengthening, prior to discharge home alone. * Debility - PT/OT. * Pain - Tylenol 1000mg q6h prn pain (1-10). * Bowel - Miralax 17gm daily, Senna/colace 1 tablet twice daily, Dulcolax 10mg daily prn. * Adult immunization - Administer prevnar 13, pneumovax 23, fluzone, covid19 vaccine as appropriate. * DVT prophylaxis - Not necessary, already on Eliquis. * Atrial fibrillation - Metoprolol succinate 25mg daily, Diltiazem 120mg daily, Eliquis 5mg twice daily. * Hyperlipidemia - Atorvastatin 20mg qhs. * Vitamin D deficiency - D3 25mcg qhs. * Vitamin B12 deficiency - B12 1000mcg qhs. * GERD - FAmotidine 40mg qhs. * Iron deficiency anemia - Ferrous sulfate 325mg qhs. * Edema - Furosemide 20mg daily. * Diabetes Mellitus II - Metformin 500mg bid, Glipizide 5mg daily. * Hypomagnesemia - Magnesium oxide 400mg daily. * Hypokalemia - Kcl 10meq daily. * Syncope - Event monitor as outpatient. * K. Pneumoniae urinary tract infedtion - Cefdinir 300mg bid thru .
[2021-05-16] MEDS: Cefdinir 300 MG Capsule PO (21:56)
[2021-05-16] MEDS: Senna/Docusate Sodium 1 Tablet PO (21:57)
[2021-05-16] MEDS: Atorvastatin Calcium 20 MG Tablet PO (21:58)
[2021-05-16] MEDS: Famotidine 20 MG Tablet 40 MG PO (21:59)
[2021-05-16] MEDS: Cyanocobalamin 500 MCG Tablet 1000 MCG PO (21:59)
[2021-05-16] MEDS: Cholecalciferol (VIT D3) 25 MCG TABLET (1,000 UNITS) PO (21:59)
[2021-05-16 22:00] VITALS: PULSE 84; RESP 18; O2SAT 97
[2021-05-16] MEDS: Ferrous Sulfate 325 MG Tablet PO (22:00)
[2021-05-17] MEDS: Polyethylene Glycol 3350 17 GM PACKET PO (05:09)
[2021-05-17] MEDS: APIXABAN 5 MG TABLET PO ×2 (05:09→17:33)
[2021-05-17] MEDS: Furosemide 20 MG Tablet PO (05:09)
[2021-05-17] MEDS: Magnesium Chloride 64 MG Delay Rel.Tablet 128 MG PO (05:09)
[2021-05-17 05:11] VITALS: BP 123/60; PULSE 84
[2021-05-17] MEDS: dilTIAZem CD 120 MG Capsule PO (05:11)
[2021-05-17] MEDS: Cefdinir 300 MG Capsule PO ×2 (05:11→17:33)
[2021-05-17] MEDS: Metoprolol(XL)Succ 25 MG Tablet PO (05:11)
[2021-05-17] MEDS: Potassium Chloride Oral Tablet 10 MEQ PO (05:11)
[2021-05-17] MEDS: Senna/Docusate Sodium 1 Tablet PO ×2 (05:12→17:33)
[2021-05-17 06:09] LABS: Absolute Lymphocyte Count 1.65 X10^3/uL (0.83-4.51); Absolute Neutrophil Count 6.9 X10^3/uL (2.0-7.7); Basophil# 0.09 X10^3/uL; Basophil% 0.9 % (0-1); Eosinophil# 0.29 X10^3/uL; Eosinophils% 2.9 % (0-5); Hematocrit 35.1 % (37-47); Hemoglobin 11.1 g/dL (12.0-15.0); Lymphocyte # 1.65 X10^3/ul (0.83-4.51); Lymphocyte % 16.5 % (19-41); Mean Corp Hgb Conc 31.6 g/dL (32-36); Mean Corpuscular Hgb 27.8 pg (27.0-32.0); Mean Corpuscular Volume 87.8 fL (81-99); Mean Platelet Vol. 9.1 fl (6.2-12.0); NRBC Flagged by Analyzer 0 % (0-5); Neutrophil # 6.91 X10^3/uL (2.7-7.7); Neutrophil % 69.2 % (47-70); Platelet Count 447 K/mm3 (150-450); RBC Distribution Width CV 15.3 % (11.6-14.6); RBC Distribution Width SD 49.1 fl (35.1-43.9)
[2021-05-17 06:26] LABS: Bedside Glucose 143 mg/dL (70-110)
[2021-05-17 06:39] LABS: Anion Gap 4 (5-15); BUN 22 mg/dL (7-18); BUN/Creat Ratio 28.7 RATIO (10-20); Chloride 109 mmol/L (98-107); Creatinine, Serum 0.77 mg/dL (0.55-1.02); EST Glomerular Filtration Rate 77 mL/min (>60); Est Glom Filt Rate - Afr Amer 93 mL/min (>60); Glucose 148 mg/dL (74-106); Potassium 4.1 mmol/L (3.5-5.1); Sodium Level 136 mmol/L (136-145)
[2021-05-17] MEDS: Glucerna Shake 120 ML LIQUID PO ×2 (07:58→12:02)
[2021-05-17] MEDS: glipiZIDE XL 5 MG Tablet PO (07:59)
[2021-05-17] MEDS: metFORMIN (XR) 500 MG Tablet PO ×2 (07:59→17:33)
[2021-05-17] MEDS: Acetaminophen 500 MG Tablet 1000 MG PO (08:48)
--- NOTE | 2021-05-17 09:33 | NURSING ---
THERAPY REPORTED TO THIS NURSE THAT PT HAD A LARGE LOOSE BLACK STOOL. WILL CONTINUE TO MONITOR,RN AWARE.
[2021-05-17] MEDS: Tuberculin,Purif.prot.deriv. 50 TU/ML Vial 0.1 ML ID (10:31)
[2021-05-17] MEDS: Menthol/Lanolin/Calamine/Znox 113 GM Tube 1 APPLIC TOPICAL ×2 (10:35→17:33)
[2021-05-17] MEDS: Nystatin Powder 15gm Bottle 1 APPLIC TOPICAL ×2 (10:36→17:33)
--- NOTE | 2021-05-17 13:11 | CASEMGMT ---
Social Work Met with patient for initial assessment. Discussed code status. Confirmed DNR-CCA, no intubation. MOLST form completed, communication to , placed in chart. Pt unsure if she has HCPOA/LW. Explained Medicare benefit. Encouraged to contact secondary insurance to copay coverage. The goal is for pt to return home alone. Pt open to possibly hiring aides to assist at DC if needed. SW to continue to follow. Edda Urias, CHIEF CLINICAL OFFICER ENGINEERING ASSOCIATE
[2021-05-17 14:52] VITALS: BP 137/77; PULSE 86; RESP 14; TEMP 36.3; O2SAT 98
--- NOTE | 2021-05-17 15:06 | CHAPLAIN ---
Type of Pastoral Visit _x__ Initial Visit ___ Follow-up Visit ___ On-call Visit ___ General Patient Visit ___ Spiritual Assessment ___ Family Conference ___ Bereavement ___ Rapid Response ___ Code Blue ___ Other (describe below) Pastoral Care Referral From _x__ Patient ___ Family ___ Nurse ___ Physician ___ Transport Coordinator ___ Fuel Quality Tech ___ Other (describe below) Sacrament/Intervention _x__ Active listening ___ Anointing ___ Yazidism ___ Bereavement ___ Communion ___ Tania exploration ___ ___ Life review ___ Prayer ___ Reconciliation ___ Sacrament of Sick _x__ Supportive presence ___ Wedding ___ Other (describe below) Pastoral Comments daughter is with patient; pt is welcoming but does not present any issues or concerns; pt does not have a presybeterian support
[2021-05-17] MEDS: Ferrous Sulfate 325 MG Tablet PO (21:28)
[2021-05-17] MEDS: Atorvastatin Calcium 20 MG Tablet PO (21:28)
[2021-05-17] MEDS: Famotidine 20 MG Tablet 40 MG PO (21:29)
[2021-05-17] MEDS: Cyanocobalamin 500 MCG Tablet 1000 MCG PO (21:29)
[2021-05-17] MEDS: Cholecalciferol (VIT D3) 25 MCG TABLET (1,000 UNITS) PO (21:29)
[2021-05-17 21:36] VITALS: PULSE 70; RESP 16; O2SAT 95
[2021-05-18 06:31] LABS: Bedside Glucose 134 mg/dL (70-110)
[2021-05-18 06:39] VITALS: BP 157/78; PULSE 87
[2021-05-18] MEDS: Magnesium Chloride 64 MG Delay Rel.Tablet 128 MG PO (06:39)
[2021-05-18] MEDS: APIXABAN 5 MG TABLET PO ×2 (06:39→17:35)
[2021-05-18] MEDS: Metoprolol(XL)Succ 25 MG Tablet PO (06:39)
[2021-05-18] MEDS: Furosemide 20 MG Tablet PO (06:40)
[2021-05-18] MEDS: Cefdinir 300 MG Capsule PO ×2 (06:40→17:35)
[2021-05-18] MEDS: Potassium Chloride Oral Tablet 10 MEQ PO (06:40)
[2021-05-18] MEDS: Senna/Docusate Sodium 1 Tablet PO ×2 (06:40→17:35)
[2021-05-18] MEDS: dilTIAZem CD 120 MG Capsule PO (06:40)
[2021-05-18] MEDS: Menthol/Lanolin/Calamine/Znox 113 GM Tube 1 APPLIC TOPICAL ×2 (06:41→17:35)
[2021-05-18] MEDS: Nystatin Powder 15gm Bottle 1 APPLIC TOPICAL ×2 (06:41→17:35)
[2021-05-18] MEDS: glipiZIDE XL 5 MG Tablet PO (09:04)
[2021-05-18] MEDS: metFORMIN (XR) 500 MG Tablet PO ×2 (09:04→17:35)
--- NOTE | 2021-05-18 10:39 | PCM.PN.RX ---
Progress Note - Pharmacy Subjective: TCU Admission Objective: Allergies Penicillins Adverse Reaction (Verified 05/13/21 09:37) Unknown Current Medications Generic Name Dose Route Start Last Admin Trade Name Jessee PRN Reason Stop Dose Admin Acetaminophen 1,000 mg 05/16/21 20:14 05/17/21 08:48 Acetaminophen 500 Mg Tablet PO 1,000 mg Q6H PRN PRN Administration Pain Score 1-10 Apixaban 5 mg 05/17/21 06:00 05/18/21 06:39 Apixaban 5 Mg Tablet PO 5 mg BID COSMO Administration Atorvastatin Calcium 20 mg 05/16/21 22:00 05/17/21 21:28 Atorvastatin Calcium 20 Mg Tablet PO 20 mg QHS COSMO Administration Bisacodyl 10 mg 05/16/21 20:14 Bisacodyl 5 Mg Tablet PO DAILY PRN Constipation Calamine/Phenol 1 applic 05/17/21 10:00 05/18/21 06:41 Menthol/Lanolin/Calamine/Znox 113 Gm Tube TOPICAL 1 applic BID COSMO Administration Protocol Cefdinir 300 mg 05/16/21 20:30 05/18/21 06:40 Cefdinir 300 Mg Capsule PO 05/21/21 23:59 300 mg Q12 COSMO Administration Cholecalciferol 25 mcg 05/16/21 22:00 05/17/21 21:29 Cholecalciferol (Vit D3) 25 Mcg Tablet (1,000 Units) PO 25 mcg QHS COSMO Administration Cyanocobalamin 1,000 mcg 05/16/21 22:00 05/17/21 21:29 Cyanocobalamin 500 Mcg Tablet PO 1,000 mcg QHS COSMO Administration Diltiazem HCl 120 mg 05/17/21 06:00 05/18/21 06:40 Diltiazem Cd 120 Mg Capsule PO 120 mg DAILY COSMO Administration Famotidine 40 mg 05/16/21 22:00 05/17/21 21:29 Famotidine 20 Mg Tablet PO 40 mg QHS COSMO Administration Ferrous Sulfate 325 mg 05/16/21 22:00 05/17/21 21:28 Ferrous Sulfate 325 Mg Tablet PO 325 mg QHS COSMO Administration Furosemide 20 mg 05/17/21 06:00 05/18/21 06:40 Furosemide 20 Mg Tablet PO 20 mg DAILY COSMO Administration Glipizide 5 mg 05/17/21 08:00 05/18/21 09:04 Glipizide Xl 5 Mg Tablet PO 5 mg 0800 COSMO Administration Magnesium Chloride 128 mg 05/17/21 06:00 05/18/21 06:39 Magnesium Chloride 64 Mg Delay Rel.Tablet PO 128 mg DAILY COSMO Administration Metformin HCl 500 mg 05/17/21 08:00 05/18/21 09:04 Metformin (Xr) 500 Mg Tablet PO 500 mg BIDCM COSMO Administration Metoprolol Succinate 25 mg 05/17/21 06:00 05/18/21 06:39 Metoprolol(Xl)Succ 25 Mg Tablet PO 25 mg DAILY COSMO Administration Nystatin 1 applic 05/17/21 10:00 05/18/21 06:41 Nystatin Powder 15gm Bottle TOPICAL 1 applic BID COSMO Administration Protocol Polyethylene Glycol 17 gm 05/17/21 06:00 05/18/21 06:40 Polyethylene Glycol 3350 17 Gm Packet PO Not Given DAILY COSMO Potassium Chloride 10 meq 05/17/21 06:00 05/18/21 06:40 Potassium Chloride Oral Tablet 10 Meq PO 10 meq DAILY COSMO Administration Senna/Docusate Sodium 1 tablet 05/16/21 20:30 05/18/21 06:40 Senna/Docusate Sodium 1 Tablet PO 1 tablet BID COSMO Administration Tuberculin PPD 0.1 ml 05/24/21 10:00 Tuberculin,Purif.Prot.Deriv. 50 Tu/Ml Vial ID 05/24/21 10:01 X1 ONE Problem List (Last Reviewed 05/16/21 @ 20:[address] Josue Flores MD) Edema (Acute) Hypokalemia (Acute) Gastroesophageal reflux disease (Acute) Hypomagnesemia (Acute) Hyperlipidemia (Acute) Diabetes mellitus (Acute) Hypertension (Chronic) Breast cancer (Acute) Urinary tract infection (Acute) Atrial fibrillation with rapid ventricular response (Acute) Syncope (Acute) Debility (Acute) Vital Signs Temp Pulse Resp BP Pulse Ox 97.4 F L 87 16 157/78 H 95 05/17/21 14:52 05/18/21 06:39 05/17/21 21:36 05/18/21 06:39 05/17/21 21:36 Oxygen Delivery Method Room Air Weight: 96.2 kg Body Mass Index (BMI) 35.2 Sodium 136 mmol/L (136-145) 05/17/21 05:35 Potassium 4.1 mmol/L (3.5-5.1) 05/17/21 05:35 Chloride 109 mmol/L (98-107) H 05/17/21 05:35 Carbon Dioxide 23.0 mmol/L (21.0-32.0) 05/17/21 05:35 Anion Gap 4 (5-15) L 05/17/21 05:35 BUN 22 mg/dL (7-18) H 05/17/21 05:35 Creatinine 0.77 mg/dL (0.55-1.02) 05/17/21 05:35 Est GFR (MDRD) Af Amer 93 mL/min (>60) 05/17/21 05:35 Est GFR (MDRD) Non-Af 77 mL/min (>60) 05/17/21 05:35 BUN/Creatinine Ratio 28.7 RATIO (10-20) H 05/17/21 05:35 Glucose 148 mg/dL (74-106) H 05/17/21 05:35 Assessment/Plan: 1. Pain: acetaminophen 1000mg PO Q6H PRN pain 1-04/08. Please continue to monitor for S/S of increased pain and PRN usage. 2. K. pneumoniae UTI: cefdinir 300mg PO BID thru 05/21/21. Please continue to monitor for S/S of infection, diarrhea and renal function. 3. Atrial fibrillation: metoprolol succinate 25mg PO daily, diltiazem CD 120mg PO daily and apixaban 5mg PO BID. Please continue to monitor BP (last 157/78), HR (last 87), S/S of bleeding and hemoglobin (last 11.1g/dL). *4. Hyperlipidemia: atorvastatin 20mg PO QHS. Please consider ordering a lipid panel if clinically appropriate. Patient does not have one in the chart. Thanks. Please continue to monitor for muscle pain. 5. GERD: famotidine 40mg PO QHS. Please continue to monitor for S/S of GERD. 6. Iron deficiency anemia: ferrous sulfate 325mg PO QHS. Please continue to monitor hemoglobin, dark stools and constipation. 7. Edema: furosemide 20mg PO daily. Please continue to monitor potassium (last 4.1mmol/L), sodium (last 136mmol/L), renal function and edema. *8. Diabetes Mellitus II: metformin XR 500mg PO BIDCM and glipizide XL 5mg PO DAILYCM. Please consider ordering a hemoglobin A1c if clinically appropriate. Please continue to monitor renal function, glucose (last 134mg/dL), diarrhea and S/S of hypoglycemia. 9. Hypomagnesemia/hypokalemia: magnesium chloride 128mg PO daily and potassium chloride 10mEq PO daily. Please continue to monitor magnesium (last 1.9mg/dL) and potassium (last 4.1mmol/L). *10. Vitamin deficiencies: cholecalciferol 25mcg PO daily and cyanocobalamin 1000mcg PO QHS. Please consider ordering vitamin D and vitamin B12 levels if clinically appropriate. Patient does not have either in the chart. Thanks. Psychotropic Medications: None Unnecessary Medications: None Bowel Regimen: Miralax 17gm PO daily, senna/docusate 1T PO BID and bisacodyl 10mg PO daily PRN constipation. Please continue to monitor for PRN usage and constipation. Date of Note:: 05/18/21
[2021-05-18 11:36] VITALS: PULSE 108; RESP 18; O2SAT 96
[2021-05-18 13:02] VITALS: BP 138/79; PULSE 84; RESP 18; TEMP 36.4; O2SAT 98
[2021-05-18] MEDS: Acetaminophen 500 MG Tablet 1000 MG PO (21:12)
[2021-05-18] MEDS: Famotidine 20 MG Tablet 40 MG PO (21:13)
[2021-05-18] MEDS: Ferrous Sulfate 325 MG Tablet PO (21:13)
[2021-05-18] MEDS: Atorvastatin Calcium 20 MG Tablet PO (21:13)
[2021-05-18] MEDS: Cyanocobalamin 500 MCG Tablet 1000 MCG PO (21:16)
[2021-05-18] MEDS: Cholecalciferol (VIT D3) 25 MCG TABLET (1,000 UNITS) PO (21:18)
[2021-05-19] MEDS: Menthol/Lanolin/Calamine/Znox 113 GM Tube 1 APPLIC TOPICAL ×2 (05:01→17:50)
[2021-05-19] MEDS: Cefdinir 300 MG Capsule PO ×2 (05:02→17:49)
[2021-05-19] MEDS: Furosemide 20 MG Tablet PO (05:02)
[2021-05-19] MEDS: dilTIAZem CD 120 MG Capsule PO (05:02)
[2021-05-19] MEDS: Potassium Chloride Oral Tablet 10 MEQ PO (05:02)
[2021-05-19] MEDS: Senna/Docusate Sodium 1 Tablet PO (05:02)
[2021-05-19] MEDS: APIXABAN 5 MG TABLET PO ×2 (05:02→17:49)
[2021-05-19] MEDS: Magnesium Chloride 64 MG Delay Rel.Tablet 128 MG PO (05:02)
[2021-05-19] MEDS: Polyethylene Glycol 3350 17 GM PACKET PO (05:02)
[2021-05-19 05:03] VITALS: BP 160/75; PULSE 90
[2021-05-19] MEDS: Nystatin Powder 15gm Bottle 1 APPLIC TOPICAL ×2 (05:03→17:50)
[2021-05-19] MEDS: Metoprolol(XL)Succ 25 MG Tablet PO (05:03)
[2021-05-19 06:31] LABS: Bedside Glucose 98 mg/dL (70-110)
[2021-05-19] MEDS: metFORMIN (XR) 500 MG Tablet PO ×2 (09:10→17:49)
[2021-05-19] MEDS: glipiZIDE XL 5 MG Tablet PO (09:10)
[2021-05-19 13:50] VITALS: BP 115/79; PULSE 84; RESP 16; TEMP 36.2; O2SAT 96
[2021-05-19 21:02] VITALS: PULSE 86; RESP 18; O2SAT 96
[2021-05-19] MEDS: Atorvastatin Calcium 20 MG Tablet PO (21:15)
[2021-05-19] MEDS: Ferrous Sulfate 325 MG Tablet PO (21:15)
[2021-05-19] MEDS: Famotidine 20 MG Tablet 40 MG PO (21:15)
[2021-05-19] MEDS: Cholecalciferol (VIT D3) 25 MCG TABLET (1,000 UNITS) PO (21:15)
[2021-05-19] MEDS: Cyanocobalamin 500 MCG Tablet 1000 MCG PO (21:16)
[2021-05-19] MEDS: Acetaminophen 500 MG Tablet 1000 MG PO (21:16)
[2021-05-20] MEDS: Menthol/Lanolin/Calamine/Znox 113 GM Tube 1 APPLIC TOPICAL ×2 (06:14→17:15)
[2021-05-20] MEDS: Nystatin Powder 15gm Bottle 1 APPLIC TOPICAL ×2 (06:14→17:16)
[2021-05-20] MEDS: APIXABAN 5 MG TABLET PO ×2 (06:16→17:15)
[2021-05-20] MEDS: Cefdinir 300 MG Capsule PO ×2 (06:16→17:14)
[2021-05-20] MEDS: Magnesium Chloride 64 MG Delay Rel.Tablet 128 MG PO (06:16)
[2021-05-20] MEDS: dilTIAZem CD 120 MG Capsule PO (06:16)
[2021-05-20 06:17] VITALS: BP 106/76; PULSE 84
[2021-05-20] MEDS: Metoprolol(XL)Succ 25 MG Tablet PO (06:17)
[2021-05-20] MEDS: Senna/Docusate Sodium 1 Tablet PO (06:17)
[2021-05-20] MEDS: Furosemide 20 MG Tablet PO (06:17)
[2021-05-20] MEDS: Potassium Chloride Oral Tablet 10 MEQ PO (06:17)
[2021-05-20 06:21] LABS: Bedside Glucose 96 mg/dL (70-110)
[2021-05-20] MEDS: metFORMIN (XR) 500 MG Tablet PO ×2 (07:46→17:14)
[2021-05-20] MEDS: glipiZIDE XL 5 MG Tablet PO (07:47)
[2021-05-20 15:37] VITALS: BP 122/76; PULSE 83; RESP 18; TEMP 36.4; O2SAT 97
[2021-05-20] MEDS: Acetaminophen 500 MG Tablet 1000 MG PO (21:11)
[2021-05-20] MEDS: Cyanocobalamin 500 MCG Tablet 1000 MCG PO (21:12)
[2021-05-20] MEDS: Cholecalciferol (VIT D3) 25 MCG TABLET (1,000 UNITS) PO (21:12)
[2021-05-20] MEDS: Atorvastatin Calcium 20 MG Tablet PO (21:12)
[2021-05-20] MEDS: Famotidine 20 MG Tablet 40 MG PO (21:12)
[2021-05-20] MEDS: Ferrous Sulfate 325 MG Tablet PO (21:12)
[2021-05-21 06:12] VITALS: BP 139/78; PULSE 80; RESP 18; TEMP 36.2; O2SAT 98
[2021-05-21 06:25] LABS: Bedside Glucose 105 mg/dL (70-110)
[2021-05-21 06:39] VITALS: PULSE 80
[2021-05-21] MEDS: Magnesium Chloride 64 MG Delay Rel.Tablet 128 MG PO (06:39)
[2021-05-21] MEDS: Metoprolol(XL)Succ 25 MG Tablet PO (06:39)
[2021-05-21] MEDS: Menthol/Lanolin/Calamine/Znox 113 GM Tube 1 APPLIC TOPICAL ×2 (06:39→20:28)
[2021-05-21] MEDS: dilTIAZem CD 120 MG Capsule PO (06:39)
[2021-05-21] MEDS: Cefdinir 300 MG Capsule PO ×2 (06:39→17:16)
[2021-05-21] MEDS: APIXABAN 5 MG TABLET PO ×2 (06:39→17:16)
[2021-05-21] MEDS: Nystatin Powder 15gm Bottle 1 APPLIC TOPICAL ×2 (06:39→20:28)
[2021-05-21] MEDS: Potassium Chloride Oral Tablet 10 MEQ PO (06:39)
[2021-05-21] MEDS: Senna/Docusate Sodium 1 Tablet PO (06:39)
[2021-05-21] MEDS: Furosemide 20 MG Tablet PO (06:39)
[2021-05-21] MEDS: Hydrocortisone 2.5% Crm 1 APPLIC TOPICAL ×2 (06:45→17:17)
[2021-05-21] MEDS: metFORMIN (XR) 500 MG Tablet PO ×2 (08:39→17:16)
[2021-05-21] MEDS: glipiZIDE XL 5 MG Tablet PO (08:39)
[2021-05-21 10:00] VITALS: PULSE 61; RESP 16; O2SAT 95
[2021-05-21 16:28] VITALS: BP 150/90; PULSE 72; RESP 16; TEMP 36.7; O2SAT 99
[2021-05-21] MEDS: Ferrous Sulfate 325 MG Tablet PO (20:28)
[2021-05-21] MEDS: Famotidine 20 MG Tablet 40 MG PO (20:29)
[2021-05-21] MEDS: Atorvastatin Calcium 20 MG Tablet PO (20:29)
[2021-05-21] MEDS: Cyanocobalamin 500 MCG Tablet 1000 MCG PO (20:29)
[2021-05-21] MEDS: Cholecalciferol (VIT D3) 25 MCG TABLET (1,000 UNITS) PO (20:30)
[2021-05-21] MEDS: Acetaminophen 500 MG Tablet 1000 MG PO (21:42)
[2021-05-22] MEDS: Magnesium Chloride 64 MG Delay Rel.Tablet 128 MG PO (05:46)
[2021-05-22] MEDS: Senna/Docusate Sodium 1 Tablet PO (05:46)
[2021-05-22] MEDS: Potassium Chloride Oral Tablet 10 MEQ PO (05:46)
[2021-05-22] MEDS: Furosemide 20 MG Tablet PO (05:46)
[2021-05-22 05:47] VITALS: BP 131/73; PULSE 82
[2021-05-22] MEDS: dilTIAZem CD 120 MG Capsule PO (05:47)
[2021-05-22] MEDS: Metoprolol(XL)Succ 25 MG Tablet PO (05:47)
[2021-05-22] MEDS: APIXABAN 5 MG TABLET PO ×2 (05:47→17:22)
[2021-05-22] MEDS: Hydrocortisone 2.5% Crm 1 APPLIC TOPICAL ×2 (05:47→17:24)
[2021-05-22] MEDS: Acetaminophen 500 MG Tablet 1000 MG PO ×3 (05:58→20:37)
[2021-05-22] MEDS: Nystatin Powder 15gm Bottle 1 APPLIC TOPICAL ×2 (06:00→20:37)
[2021-05-22] MEDS: Menthol/Lanolin/Calamine/Znox 113 GM Tube 1 APPLIC TOPICAL ×2 (06:01→20:37)
[2021-05-22 06:07] VITALS: BP 131/73; PULSE 82; RESP 16; TEMP 36.6; O2SAT 96
--- NOTE | 2021-05-22 06:08 | NURSING ---
Patient requesting routing Tylenol. Message left for Dr. Flores.
[2021-05-22 06:20] LABS: Bedside Glucose 101 mg/dL (70-110)
[2021-05-22] MEDS: glipiZIDE XL 5 MG Tablet PO (08:05)
[2021-05-22] MEDS: metFORMIN (XR) 500 MG Tablet PO ×2 (08:05→17:22)
--- NOTE | 2021-05-22 09:02 | CASEMGMT ---
BIMS and PHQ9 interviews completed on this date for MDS assessment. BLANQUITA Car
[2021-05-22] MEDS: COVID-19 VAC,AD26(JANSSEN)/PF 0.5 ML SYRINGE IM (11:44)
--- NOTE | 2021-05-22 11:54 | NURSING ---
COVID SHOT, SECOND [employer] GIVEN IN RIGHT DELT. PT TOLERATED WELL. VERIFIED WITH WING MILES AND ROHAN IN [place]. RN AWARE
[2021-05-22 12:42] VITALS: BP 136/83; PULSE 96; RESP 18; TEMP 36.3; O2SAT 97
[2021-05-22] MEDS: Atorvastatin Calcium 20 MG Tablet PO (20:38)
[2021-05-22] MEDS: Cyanocobalamin 500 MCG Tablet 1000 MCG PO (20:38)
[2021-05-22] MEDS: Famotidine 20 MG Tablet 40 MG PO (20:38)
[2021-05-22] MEDS: Ferrous Sulfate 325 MG Tablet PO (20:38)
[2021-05-22] MEDS: Cholecalciferol (VIT D3) 25 MCG TABLET (1,000 UNITS) PO (20:39)
[2021-05-23 06:21] LABS: Bedside Glucose 87 mg/dL (70-110)
[2021-05-23] MEDS: Acetaminophen 500 MG Tablet 1000 MG PO ×3 (06:21→21:49)
[2021-05-23 06:22] VITALS: BP 141/81; PULSE 78
[2021-05-23] MEDS: Furosemide 20 MG Tablet PO (06:22)
[2021-05-23] MEDS: APIXABAN 5 MG TABLET PO ×2 (06:22→17:12)
[2021-05-23] MEDS: dilTIAZem CD 120 MG Capsule PO (06:22)
[2021-05-23] MEDS: Magnesium Chloride 64 MG Delay Rel.Tablet 128 MG PO (06:22)
[2021-05-23] MEDS: Metoprolol(XL)Succ 25 MG Tablet PO (06:22)
[2021-05-23] MEDS: Potassium Chloride Oral Tablet 10 MEQ PO (06:22)
[2021-05-23] MEDS: Menthol/Lanolin/Calamine/Znox 113 GM Tube 1 APPLIC TOPICAL ×2 (06:24→17:10)
[2021-05-23] MEDS: Nystatin Powder 15gm Bottle 1 APPLIC TOPICAL ×2 (06:24→21:46)
[2021-05-23] MEDS: Hydrocortisone 2.5% Crm 1 APPLIC TOPICAL ×2 (06:25→17:10)
[2021-05-23] MEDS: metFORMIN (XR) 500 MG Tablet PO ×2 (07:38→17:12)
[2021-05-23] MEDS: glipiZIDE XL 5 MG Tablet PO (07:38)
[2021-05-23 09:40] VITALS: PULSE 81; RESP 18; O2SAT 98
--- NOTE | 2021-05-23 10:25 | CASEMGMT ---
Social Work IDT met with patient and dtr for care plan meeting. Discussed patient's progress in therapy and nursing. Pt progressing well. Explained Medicare benefit. Encouraged to contact secondary insurance to ensure copay coverage. The goal is for pt to return home alone with dtr assist. Pt has MOW and Medical Alert. Provided nonskilled HHC list to get more assistance in the home. Pt, son and dtr agree to get additional assistance in the home regardless of level of assist at time of DC. Concerned about fall risk. Offered suggestions and interventions. All appreciative. SW to continue to follow for discharge planning. Edda Urias, TRIAL EXAMINER COMMUNITY RELATIONS MANAGER
[2021-05-23 13:31] VITALS: BP 137/57; PULSE 83; RESP 18; TEMP 36.6; O2SAT 96
[2021-05-23] MEDS: Ferrous Sulfate 325 MG Tablet PO (21:48)
[2021-05-23] MEDS: Atorvastatin Calcium 20 MG Tablet PO (21:48)
[2021-05-23] MEDS: Famotidine 20 MG Tablet 40 MG PO (21:49)
[2021-05-23] MEDS: Cholecalciferol (VIT D3) 25 MCG TABLET (1,000 UNITS) PO (21:50)
[2021-05-23] MEDS: Cyanocobalamin 500 MCG Tablet 1000 MCG PO (21:50)
[2021-05-24] MEDS: Magnesium Chloride 64 MG Delay Rel.Tablet 128 MG PO (05:10)
[2021-05-24] MEDS: Acetaminophen 500 MG Tablet 1000 MG PO ×3 (05:10→20:51)
[2021-05-24] MEDS: Hydrocortisone 2.5% Crm 1 APPLIC TOPICAL ×2 (05:11→17:15)
[2021-05-24] MEDS: APIXABAN 5 MG TABLET PO ×2 (05:11→17:13)
[2021-05-24] MEDS: dilTIAZem CD 120 MG Capsule PO (05:11)
[2021-05-24] MEDS: Furosemide 20 MG Tablet PO (05:11)
[2021-05-24] MEDS: Nystatin Powder 15gm Bottle 1 APPLIC TOPICAL ×2 (05:12→17:14)
[2021-05-24] MEDS: Menthol/Lanolin/Calamine/Znox 113 GM Tube 1 APPLIC TOPICAL ×2 (05:12→17:13)
[2021-05-24 05:13] VITALS: BP 129/81; PULSE 77
[2021-05-24] MEDS: Metoprolol(XL)Succ 25 MG Tablet PO (05:13)
[2021-05-24] MEDS: Potassium Chloride Oral Tablet 10 MEQ PO (05:17)
[2021-05-24 06:11] LABS: Absolute Lymphocyte Count 2.43 X10^3/uL (0.83-4.51); Absolute Neutrophil Count 4.7 X10^3/uL (2.0-7.7); Basophil% 1.2 % (0-1); Eosinophil# 0.31 X10^3/uL; Eosinophils% 3.6 % (0-5); Hematocrit 36.6 % (37-47); Hemoglobin 11.3 g/dL (12.0-15.0); Lymphocyte # 2.43 X10^3/ul (0.83-4.51); Lymphocyte % 28.1 % (19-41); Mean Corp Hgb Conc 30.9 g/dL (32-36); Mean Corpuscular Hgb 27.1 pg (27.0-32.0); Mean Corpuscular Volume 87.8 fL (81-99); Mean Platelet Vol. 9.2 fl (6.2-12.0); Monocyte# 1.09 X10^3/uL; Monocyte% 12.6 % (0-10); NRBC Flagged by Analyzer 0 % (0-5); Neutrophil # 4.67 X10^3/uL (2.7-7.7); Neutrophil % 53.8 % (47-70); Platelet Count 475 K/mm3 (150-450); RBC Distribution Width CV 15.3 % (11.6-14.6); RBC Distribution Width SD 49.1 fl (35.1-43.9); Red Blood Count 4.17 M/mm3 (4.2-5.4); White Blood Count 8.7 K/mm3 (4.4-11.0)
[2021-05-24 06:16] LABS: Bedside Glucose 71 mg/dL (70-110)
[2021-05-24 06:29] LABS: Anion Gap 7 (5-15); BUN 27 mg/dL (7-18); BUN/Creat Ratio 36.5 RATIO (10-20); Calcium,Total 10.8 mg/dL (8.5-10.1); Chloride 110 mmol/L (98-107); Creatinine, Serum 0.74 mg/dL (0.55-1.02); EST Glomerular Filtration Rate 80 mL/min (>60); Est Glom Filt Rate - Afr Amer 97 mL/min (>60); Glucose 66 mg/dL (74-106); Potassium 4.6 mmol/L (3.5-5.1); Sodium Level 140 mmol/L (136-145)
[2021-05-24] MEDS: glipiZIDE XL 5 MG Tablet PO (08:01)
[2021-05-24] MEDS: metFORMIN (XR) 500 MG Tablet PO ×2 (08:01→17:13)
[2021-05-24] MEDS: Tuberculin,Purif.prot.deriv. 50 TU/ML Vial 0.1 ML ID (09:12)
--- NOTE | 2021-05-24 13:31 | NURSING ---
APPLIED 30 DAY HEART MONITOR THAT FAMILY BROUGHT IN FROM HOME. PT INSTRUCTED TO PUSH BUTTON ON ECG IF SHE FEELS IRREG HEARTBEAT. PT VERBALIZED UNDERSTANDING.
[2021-05-24 13:57] VITALS: BP 110/72; PULSE 87; RESP 17; TEMP 37; O2SAT 96
[2021-05-24] MEDS: Atorvastatin Calcium 20 MG Tablet PO (20:50)
[2021-05-24] MEDS: Famotidine 20 MG Tablet 40 MG PO (20:50)
[2021-05-24] MEDS: Ferrous Sulfate 325 MG Tablet PO (20:50)
[2021-05-24] MEDS: Cyanocobalamin 500 MCG Tablet 1000 MCG PO (20:51)
[2021-05-24] MEDS: Cholecalciferol (VIT D3) 25 MCG TABLET (1,000 UNITS) PO (20:51)
[2021-05-25] MEDS: Hydrocortisone 2.5% Crm 1 APPLIC TOPICAL ×2 (05:57→17:14)
[2021-05-25] MEDS: Potassium Chloride Oral Tablet 10 MEQ PO (05:59)
[2021-05-25] MEDS: Acetaminophen 500 MG Tablet 1000 MG PO ×3 (05:59→21:18)
[2021-05-25] MEDS: APIXABAN 5 MG TABLET PO ×2 (05:59→17:14)
[2021-05-25] MEDS: dilTIAZem CD 120 MG Capsule PO (05:59)
[2021-05-25 06:00] VITALS: BP 151/67; PULSE 78
[2021-05-25] MEDS: Furosemide 20 MG Tablet PO (06:00)
[2021-05-25] MEDS: Magnesium Chloride 64 MG Delay Rel.Tablet 128 MG PO (06:00)
[2021-05-25] MEDS: Metoprolol(XL)Succ 25 MG Tablet PO (06:00)
[2021-05-25] MEDS: Menthol/Lanolin/Calamine/Znox 113 GM Tube 1 APPLIC TOPICAL ×2 (06:01→17:14)
[2021-05-25] MEDS: Nystatin Powder 15gm Bottle 1 APPLIC TOPICAL ×2 (06:01→17:15)
[2021-05-25 06:25] LABS: Bedside Glucose 77 mg/dL (70-110)
[2021-05-25] MEDS: glipiZIDE XL 5 MG Tablet PO (07:43)
[2021-05-25] MEDS: metFORMIN (XR) 500 MG Tablet PO ×2 (07:43→17:14)
[2021-05-25 14:53] VITALS: BP 107/75; PULSE 84; RESP 18; TEMP 36.4; O2SAT 96
[2021-05-25] MEDS: Cyanocobalamin 500 MCG Tablet 1000 MCG PO (21:17)
[2021-05-25] MEDS: Famotidine 20 MG Tablet 40 MG PO (21:17)
[2021-05-25] MEDS: Atorvastatin Calcium 20 MG Tablet PO (21:18)
[2021-05-25] MEDS: Cholecalciferol (VIT D3) 25 MCG TABLET (1,000 UNITS) PO (21:18)
[2021-05-25] MEDS: Ferrous Sulfate 325 MG Tablet PO (21:18)
[2021-05-25 22:00] VITALS: PULSE 77; RESP 16; O2SAT 99
[2021-05-26 05:56] VITALS: BP 124/86; PULSE 71
[2021-05-26] MEDS: APIXABAN 5 MG TABLET PO ×2 (05:56→17:01)
[2021-05-26] MEDS: dilTIAZem CD 120 MG Capsule PO (05:56)
[2021-05-26] MEDS: Furosemide 20 MG Tablet PO (05:56)
[2021-05-26] MEDS: Magnesium Chloride 64 MG Delay Rel.Tablet 128 MG PO (05:56)
[2021-05-26] MEDS: Potassium Chloride Oral Tablet 10 MEQ PO (05:56)
[2021-05-26] MEDS: Acetaminophen 500 MG Tablet 1000 MG PO ×3 (05:56→21:05)
[2021-05-26] MEDS: Metoprolol(XL)Succ 25 MG Tablet PO (05:56)
[2021-05-26] MEDS: Menthol/Lanolin/Calamine/Znox 113 GM Tube 1 APPLIC TOPICAL ×2 (05:57→17:01)
[2021-05-26] MEDS: Nystatin Powder 15gm Bottle 1 APPLIC TOPICAL ×2 (05:57→17:02)
[2021-05-26] MEDS: Hydrocortisone 2.5% Crm 1 APPLIC TOPICAL ×2 (05:57→17:01)
[2021-05-26 06:15] LABS: Bedside Glucose 83 mg/dL (70-110)
[2021-05-26] MEDS: glipiZIDE XL 5 MG Tablet PO (08:21)
[2021-05-26] MEDS: metFORMIN (XR) 500 MG Tablet PO ×2 (08:21→17:01)
[2021-05-26 14:26] VITALS: BP 116/76; PULSE 78; RESP 18; TEMP 35.9; O2SAT 96
[2021-05-26] MEDS: Atorvastatin Calcium 20 MG Tablet PO (21:01)
[2021-05-26] MEDS: Ferrous Sulfate 325 MG Tablet PO (21:01)
[2021-05-26] MEDS: Famotidine 20 MG Tablet 40 MG PO (21:04)
[2021-05-26] MEDS: Cyanocobalamin 500 MCG Tablet 1000 MCG PO (21:05)
[2021-05-26] MEDS: Cholecalciferol (VIT D3) 25 MCG TABLET (1,000 UNITS) PO (21:05)
[2021-05-27 05:04] VITALS: BP 107/61; PULSE 74; RESP 16; TEMP 36; O2SAT 98
[2021-05-27] MEDS: Senna/Docusate Sodium 1 Tablet PO (05:05)
[2021-05-27] MEDS: Acetaminophen 500 MG Tablet 1000 MG PO ×3 (05:05→21:05)
[2021-05-27] MEDS: Furosemide 20 MG Tablet PO (05:05)
[2021-05-27 05:06] VITALS: BP 107/61; PULSE 74
[2021-05-27] MEDS: dilTIAZem CD 120 MG Capsule PO (05:06)
[2021-05-27] MEDS: Magnesium Chloride 64 MG Delay Rel.Tablet 128 MG PO (05:06)
[2021-05-27] MEDS: Metoprolol(XL)Succ 25 MG Tablet PO (05:06)
[2021-05-27] MEDS: APIXABAN 5 MG TABLET PO ×2 (05:07→17:07)
[2021-05-27] MEDS: Polyethylene Glycol 3350 17 GM PACKET PO (05:07)
[2021-05-27] MEDS: Hydrocortisone 2.5% Crm 1 APPLIC TOPICAL ×2 (05:14→17:08)
[2021-05-27 06:26] LABS: Bedside Glucose 71 mg/dL (70-110)
[2021-05-27] MEDS: glipiZIDE XL 5 MG Tablet PO (09:29)
[2021-05-27] MEDS: metFORMIN (XR) 500 MG Tablet PO ×2 (09:29→17:06)
[2021-05-27] MEDS: Potassium Chloride Oral Tablet 10 MEQ PO (09:30)
[2021-05-27 14:10] VITALS: BP 119/65; PULSE 96; RESP 18; TEMP 36.1; O2SAT 96
[2021-05-27] MEDS: Menthol/Lanolin/Calamine/Znox 113 GM Tube 1 APPLIC TOPICAL (17:07)
[2021-05-27] MEDS: Cholecalciferol (VIT D3) 25 MCG TABLET (1,000 UNITS) PO (21:05)
[2021-05-27] MEDS: Famotidine 20 MG Tablet 40 MG PO (21:05)
[2021-05-27] MEDS: Atorvastatin Calcium 20 MG Tablet PO (21:06)
[2021-05-27] MEDS: Cyanocobalamin 500 MCG Tablet 1000 MCG PO (21:06)
[2021-05-27] MEDS: Ferrous Sulfate 325 MG Tablet PO (21:06)
[2021-05-28] MEDS: APIXABAN 5 MG TABLET PO ×2 (05:45→17:44)
[2021-05-28] MEDS: Magnesium Chloride 64 MG Delay Rel.Tablet 128 MG PO (05:45)
[2021-05-28 05:46] VITALS: BP 136/62; PULSE 78
[2021-05-28] MEDS: Metoprolol(XL)Succ 25 MG Tablet PO (05:46)
[2021-05-28] MEDS: Furosemide 20 MG Tablet PO (05:46)
[2021-05-28] MEDS: dilTIAZem CD 120 MG Capsule PO (05:47)
[2021-05-28] MEDS: Acetaminophen 500 MG Tablet 1000 MG PO ×3 (05:47→21:28)
[2021-05-28] MEDS: Nystatin Powder 15gm Bottle 1 APPLIC TOPICAL ×2 (05:47→21:24)
[2021-05-28] MEDS: Hydrocortisone 2.5% Crm 1 APPLIC TOPICAL ×2 (05:48→17:45)
[2021-05-28 06:15] LABS: Bedside Glucose 77 mg/dL (70-110)
[2021-05-28] MEDS: metFORMIN (XR) 500 MG Tablet PO ×2 (07:50→17:44)
[2021-05-28] MEDS: Potassium Chloride Oral Tablet 10 MEQ PO (07:50)
[2021-05-28] MEDS: glipiZIDE XL 5 MG Tablet PO (07:50)
[2021-05-28 12:39] VITALS: PULSE 79; RESP 18; O2SAT 96
[2021-05-28 13:47] VITALS: BP 120/69; PULSE 77; RESP 18; TEMP 36.3; O2SAT 96
--- NOTE | 2021-05-28 15:18 | NURSING ---
Called heart monitor [employer] and they will be mailing more heart monitor adhesives to unit, will be here approx .
[2021-05-28] MEDS: Menthol/Lanolin/Calamine/Znox 113 GM Tube 1 APPLIC TOPICAL (17:45)
[2021-05-28] MEDS: Cyanocobalamin 500 MCG Tablet 1000 MCG PO (21:28)
[2021-05-28] MEDS: Famotidine 20 MG Tablet 40 MG PO (21:29)
[2021-05-28] MEDS: Cholecalciferol (VIT D3) 25 MCG TABLET (1,000 UNITS) PO (21:29)
[2021-05-28] MEDS: Atorvastatin Calcium 20 MG Tablet PO (21:30)
[2021-05-28] MEDS: Ferrous Sulfate 325 MG Tablet PO (21:30)
[2021-05-29] MEDS: Polyethylene Glycol 3350 17 GM PACKET PO (05:11)
[2021-05-29 05:13] VITALS: BP 143/78; PULSE 82
[2021-05-29] MEDS: Acetaminophen 500 MG Tablet 1000 MG PO ×3 (05:13→21:28)
[2021-05-29] MEDS: Senna/Docusate Sodium 1 Tablet PO (05:13)
[2021-05-29] MEDS: Furosemide 20 MG Tablet PO (05:13)
[2021-05-29] MEDS: Metoprolol(XL)Succ 25 MG Tablet PO (05:13)
[2021-05-29] MEDS: APIXABAN 5 MG TABLET PO ×2 (05:14→17:12)
[2021-05-29] MEDS: Hydrocortisone 2.5% Crm 1 APPLIC TOPICAL ×2 (05:14→17:13)
[2021-05-29] MEDS: dilTIAZem CD 120 MG Capsule PO (05:14)
[2021-05-29] MEDS: Nystatin Powder 15gm Bottle 1 APPLIC TOPICAL (05:15)
[2021-05-29] MEDS: Magnesium Chloride 64 MG Delay Rel.Tablet 128 MG PO (05:15)
[2021-05-29] MEDS: Menthol/Lanolin/Calamine/Znox 113 GM Tube 1 APPLIC TOPICAL ×2 (05:16→17:12)
[2021-05-29 06:30] LABS: Bedside Glucose 95 mg/dL (70-110)
--- NOTE | 2021-05-29 06:31 | MDS.RN ---
Information for the mds was obtained from review of the clinical record, interview of resident, staff, and direct observation of resident's care.
[2021-05-29] MEDS: glipiZIDE XL 5 MG Tablet PO (08:16)
[2021-05-29] MEDS: Potassium Chloride Oral Tablet 10 MEQ PO (08:16)
[2021-05-29] MEDS: metFORMIN (XR) 500 MG Tablet PO ×2 (08:16→17:11)
--- NOTE | 2021-05-29 15:21 | NURSING ---
lace mender called and stated they won't be here till [address] Meeks Updated.
[2021-05-29 16:00] VITALS: BP 139/73; PULSE 98; RESP 18; TEMP 36.4; O2SAT 98
[2021-05-29] MEDS: Famotidine 20 MG Tablet 40 MG PO (21:28)
[2021-05-29] MEDS: Atorvastatin Calcium 20 MG Tablet PO (21:28)
[2021-05-29] MEDS: Ferrous Sulfate 325 MG Tablet PO (21:29)
[2021-05-29] MEDS: Cholecalciferol (VIT D3) 25 MCG TABLET (1,000 UNITS) PO (21:29)
[2021-05-29] MEDS: Cyanocobalamin 500 MCG Tablet 1000 MCG PO (21:29)
[2021-05-29 21:44] VITALS: PULSE 78; RESP 16; O2SAT 98
[2021-05-30] MEDS: Menthol/Lanolin/Calamine/Znox 113 GM Tube 1 APPLIC TOPICAL ×2 (06:08→17:59)
[2021-05-30] MEDS: Hydrocortisone 2.5% Crm 1 APPLIC TOPICAL ×2 (06:10→17:59)
[2021-05-30 06:11] VITALS: BP 150/84; PULSE 77
[2021-05-30] MEDS: Senna/Docusate Sodium 1 Tablet PO (06:11)
[2021-05-30] MEDS: APIXABAN 5 MG TABLET PO ×2 (06:11→18:00)
[2021-05-30] MEDS: Magnesium Chloride 64 MG Delay Rel.Tablet 128 MG PO (06:11)
[2021-05-30] MEDS: Furosemide 20 MG Tablet PO (06:11)
[2021-05-30] MEDS: Polyethylene Glycol 3350 17 GM PACKET PO (06:11)
[2021-05-30] MEDS: Acetaminophen 500 MG Tablet 1000 MG PO ×3 (06:11→22:09)
[2021-05-30] MEDS: dilTIAZem CD 120 MG Capsule PO (06:11)
[2021-05-30] MEDS: Metoprolol(XL)Succ 25 MG Tablet PO (06:11)
[2021-05-30] MEDS: Nystatin Powder 15gm Bottle 1 APPLIC TOPICAL ×2 (06:18→18:00)
[2021-05-30 06:41] LABS: Bedside Glucose 72 mg/dL (70-110)
[2021-05-30] MEDS: Potassium Chloride Oral Tablet 10 MEQ PO (08:18)
[2021-05-30] MEDS: metFORMIN (XR) 500 MG Tablet PO ×2 (08:18→18:00)
[2021-05-30] MEDS: glipiZIDE XL 5 MG Tablet PO (08:18)
[2021-05-30 13:06] VITALS: BP 144/69; PULSE 76; RESP 18; TEMP 36.5; O2SAT 97
[2021-05-30] MEDS: Gabapentin 100 MG Capsule PO (20:06)
[2021-05-30] MEDS: Ferrous Sulfate 325 MG Tablet PO (22:09)
[2021-05-30] MEDS: Cyanocobalamin 500 MCG Tablet 1000 MCG PO (22:10)
[2021-05-30] MEDS: Atorvastatin Calcium 20 MG Tablet PO (22:10)
[2021-05-30] MEDS: Cholecalciferol (VIT D3) 25 MCG TABLET (1,000 UNITS) PO (22:10)
[2021-05-30] MEDS: Famotidine 20 MG Tablet 40 MG PO (22:10)
[2021-05-31] MEDS: Menthol/Lanolin/Calamine/Znox 113 GM Tube 1 APPLIC TOPICAL ×2 (05:47→17:17)
[2021-05-31] MEDS: Acetaminophen 500 MG Tablet 1000 MG PO ×3 (05:49→20:37)
[2021-05-31 05:50] VITALS: BP 137/82; PULSE 93
[2021-05-31] MEDS: Furosemide 20 MG Tablet PO (05:50)
[2021-05-31] MEDS: Metoprolol(XL)Succ 25 MG Tablet PO (05:50)
[2021-05-31] MEDS: Magnesium Chloride 64 MG Delay Rel.Tablet 128 MG PO (05:50)
[2021-05-31] MEDS: APIXABAN 5 MG TABLET PO ×2 (05:50→17:16)
[2021-05-31] MEDS: Nystatin Powder 15gm Bottle 1 APPLIC TOPICAL (05:51)
[2021-05-31] MEDS: Hydrocortisone 2.5% Crm 1 APPLIC TOPICAL ×2 (05:51→17:16)
[2021-05-31] MEDS: dilTIAZem CD 120 MG Capsule PO (05:51)
[2021-05-31 05:57] LABS: Absolute Lymphocyte Count 1.88 X10^3/uL (0.83-4.51); Absolute Neutrophil Count 5.6 X10^3/uL (2.0-7.7); Basophil# 0.13 X10^3/uL; Basophil% 1.5 % (0-1); Eosinophil# 0.25 X10^3/uL; Eosinophils% 2.8 % (0-5); Hematocrit 36.9 % (37-47); Hemoglobin 11.4 g/dL (12.0-15.0); Lymphocyte # 1.88 X10^3/ul (0.83-4.51); Mean Corp Hgb Conc 30.9 g/dL (32-36); Mean Corpuscular Hgb 27.3 pg (27.0-32.0); Mean Corpuscular Volume 88.5 fL (81-99); Mean Platelet Vol. 9.1 fl (6.2-12.0); Monocyte# 1.12 X10^3/uL; Monocyte% 12.5 % (0-10); NRBC Flagged by Analyzer 0 % (0-5); Neutrophil # 5.55 X10^3/uL (2.7-7.7); Neutrophil % 61.9 % (47-70); Platelet Count 463 K/mm3 (150-450); RBC Distribution Width CV 15.9 % (11.6-14.6); RBC Distribution Width SD 51.1 fl (35.1-43.9); Red Blood Count 4.17 M/mm3 (4.2-5.4)
[2021-05-31 06:27] LABS: Anion Gap 7 (5-15); BUN 27 mg/dL (7-18); BUN/Creat Ratio 33.5 RATIO (10-20); Chloride 109 mmol/L (98-107); Creatinine, Serum 0.81 mg/dL (0.55-1.02); EST Glomerular Filtration Rate 72 mL/min (>60); Est Glom Filt Rate - Afr Amer 87 mL/min (>60); Estimated Creatinine Clearance 48.18 ml/min; Glucose 83 mg/dL (74-106); Potassium 4.9 mmol/L (3.5-5.1); Sodium Level 139 mmol/L (136-145)
[2021-05-31 06:30] LABS: Bedside Glucose 85 mg/dL (70-110)
[2021-05-31] MEDS: metFORMIN (XR) 500 MG Tablet PO ×2 (08:27→17:16)
[2021-05-31] MEDS: Potassium Chloride Oral Tablet 10 MEQ PO (08:27)
[2021-05-31] MEDS: glipiZIDE XL 5 MG Tablet PO (08:27)
[2021-05-31] MEDS: Gabapentin 100 MG Capsule PO ×3 (08:27→17:16)
[2021-05-31 14:16] VITALS: BP 111/67; PULSE 77; RESP 18; TEMP 36; O2SAT 97
[2021-05-31] MEDS: Famotidine 20 MG Tablet 40 MG PO (20:36)
[2021-05-31] MEDS: Ferrous Sulfate 325 MG Tablet PO (20:36)
[2021-05-31] MEDS: Atorvastatin Calcium 20 MG Tablet PO (20:37)
[2021-05-31] MEDS: Cholecalciferol (VIT D3) 25 MCG TABLET (1,000 UNITS) PO (20:38)
[2021-05-31] MEDS: Cyanocobalamin 500 MCG Tablet 1000 MCG PO (20:38)
[2021-05-31 22:13] VITALS: PULSE 79; RESP 14; O2SAT 98
[2021-06-01] MEDS: Magnesium Chloride 64 MG Delay Rel.Tablet 128 MG PO (05:26)
[2021-06-01] MEDS: Menthol/Lanolin/Calamine/Znox 113 GM Tube 1 APPLIC TOPICAL ×2 (05:26→17:02)
[2021-06-01] MEDS: Nystatin Powder 15gm Bottle 1 APPLIC TOPICAL ×2 (05:27→17:01)
[2021-06-01] MEDS: Acetaminophen 500 MG Tablet 1000 MG PO ×3 (05:27→22:28)
[2021-06-01] MEDS: Senna/Docusate Sodium 1 Tablet PO ×2 (05:27→17:00)
[2021-06-01] MEDS: Furosemide 20 MG Tablet PO (05:27)
[2021-06-01] MEDS: APIXABAN 5 MG TABLET PO ×2 (05:27→17:01)
[2021-06-01] MEDS: Hydrocortisone 2.5% Crm 1 APPLIC TOPICAL ×2 (05:27→17:02)
[2021-06-01] MEDS: dilTIAZem CD 120 MG Capsule PO (05:27)
[2021-06-01 05:28] VITALS: BP 118/86; PULSE 73
[2021-06-01] MEDS: Metoprolol(XL)Succ 25 MG Tablet PO (05:28)
[2021-06-01 06:20] LABS: Bedside Glucose 102 mg/dL (70-110)
[2021-06-01] MEDS: glipiZIDE XL 5 MG Tablet PO (08:58)
[2021-06-01] MEDS: Potassium Chloride Oral Tablet 10 MEQ PO (08:59)
[2021-06-01] MEDS: Gabapentin 100 MG Capsule PO ×3 (08:59→17:03)
[2021-06-01] MEDS: metFORMIN (XR) 500 MG Tablet PO ×2 (08:59→17:04)
[2021-06-01 14:55] VITALS: BP 114/72; PULSE 75; RESP 18; TEMP 36.3; O2SAT 98
[2021-06-01] MEDS: Famotidine 20 MG Tablet 40 MG PO (22:27)
[2021-06-01] MEDS: Cholecalciferol (VIT D3) 25 MCG TABLET (1,000 UNITS) PO (22:28)
[2021-06-01] MEDS: Atorvastatin Calcium 20 MG Tablet PO (22:28)
[2021-06-01] MEDS: Ferrous Sulfate 325 MG Tablet PO (22:28)
[2021-06-01] MEDS: Cyanocobalamin 500 MCG Tablet 1000 MCG PO (22:28)
[2021-06-02 05:17] VITALS: BP 122/79; PULSE 79
[2021-06-02] MEDS: Metoprolol(XL)Succ 25 MG Tablet PO (05:17)
[2021-06-02] MEDS: Furosemide 20 MG Tablet PO (05:17)
[2021-06-02] MEDS: Magnesium Chloride 64 MG Delay Rel.Tablet 128 MG PO (05:17)
[2021-06-02] MEDS: Acetaminophen 500 MG Tablet 1000 MG PO ×3 (05:18→21:25)
[2021-06-02] MEDS: dilTIAZem CD 120 MG Capsule PO (05:18)
[2021-06-02] MEDS: APIXABAN 5 MG TABLET PO ×2 (05:18→16:51)
[2021-06-02] MEDS: Hydrocortisone 2.5% Crm 1 APPLIC TOPICAL ×2 (05:19→16:51)
[2021-06-02] MEDS: Nystatin Powder 15gm Bottle 1 APPLIC TOPICAL ×2 (05:25→21:23)
[2021-06-02] MEDS: Menthol/Lanolin/Calamine/Znox 113 GM Tube 1 APPLIC TOPICAL ×2 (05:26→16:51)
[2021-06-02 06:26] LABS: Bedside Glucose 65 mg/dL (70-110)
[2021-06-02] MEDS: Gabapentin 100 MG Capsule PO ×3 (09:12→16:51)
[2021-06-02] MEDS: metFORMIN (XR) 500 MG Tablet PO (09:12)
[2021-06-02] MEDS: Potassium Chloride Oral Tablet 10 MEQ PO (09:13)
--- NOTE | 2021-06-02 09:21 | NURSING ---
BATTERY CHANGED TO HEART MONITOR. GOOD CONTACT AND MONITORING AT THIS TIME.
[2021-06-02 15:25] VITALS: BP 144/72; PULSE 80; RESP 17; TEMP 36.2; O2SAT 97
[2021-06-02] MEDS: Ferrous Sulfate 325 MG Tablet PO (21:25)
[2021-06-02] MEDS: Famotidine 20 MG Tablet 40 MG PO (21:25)
[2021-06-02] MEDS: Cyanocobalamin 500 MCG Tablet 1000 MCG PO (21:25)
[2021-06-02] MEDS: Cholecalciferol (VIT D3) 25 MCG TABLET (1,000 UNITS) PO (21:25)
[2021-06-02] MEDS: Atorvastatin Calcium 20 MG Tablet PO (21:26)
[2021-06-02 22:00] VITALS: PULSE 79; RESP 16; O2SAT 99
[2021-06-03] MEDS: Menthol/Lanolin/Calamine/Znox 113 GM Tube 1 APPLIC TOPICAL ×2 (05:37→16:27)
[2021-06-03 05:38] VITALS: BP 137/76; PULSE 81
[2021-06-03] MEDS: Acetaminophen 500 MG Tablet 1000 MG PO ×3 (05:38→21:47)
[2021-06-03] MEDS: Magnesium Chloride 64 MG Delay Rel.Tablet 128 MG PO (05:38)
[2021-06-03] MEDS: Metoprolol(XL)Succ 25 MG Tablet PO (05:38)
[2021-06-03] MEDS: APIXABAN 5 MG TABLET PO ×2 (05:38→16:27)
[2021-06-03] MEDS: Furosemide 20 MG Tablet PO (05:38)
[2021-06-03] MEDS: dilTIAZem CD 120 MG Capsule PO (05:38)
[2021-06-03] MEDS: Hydrocortisone 2.5% Crm 1 APPLIC TOPICAL ×2 (05:39→16:27)
[2021-06-03] MEDS: Nystatin Powder 15gm Bottle 1 APPLIC TOPICAL ×2 (05:40→21:44)
[2021-06-03 06:46] LABS: Bedside Glucose 102 mg/dL (70-110)
[2021-06-03] MEDS: Gabapentin 100 MG Capsule PO ×3 (08:37→16:27)
[2021-06-03] MEDS: metFORMIN (XR) 500 MG Tablet PO (08:38)
[2021-06-03] MEDS: Potassium Chloride Oral Tablet 10 MEQ PO (08:39)
[2021-06-03 09:51] VITALS: PULSE 68; RESP 16; O2SAT 98
[2021-06-03 15:43] VITALS: BP 125/68; PULSE 77; RESP 16; TEMP 36.4; O2SAT 97
[2021-06-03] MEDS: Cholecalciferol (VIT D3) 25 MCG TABLET (1,000 UNITS) PO (21:46)
[2021-06-03] MEDS: Famotidine 20 MG Tablet 40 MG PO (21:46)
[2021-06-03] MEDS: Cyanocobalamin 500 MCG Tablet 1000 MCG PO (21:47)
[2021-06-03] MEDS: Ferrous Sulfate 325 MG Tablet PO (21:47)
[2021-06-03] MEDS: Atorvastatin Calcium 20 MG Tablet PO (21:47)
[2021-06-04] MEDS: Furosemide 20 MG Tablet PO (05:23)
[2021-06-04] MEDS: Magnesium Chloride 64 MG Delay Rel.Tablet 128 MG PO (05:23)
[2021-06-04] MEDS: Polyethylene Glycol 3350 17 GM PACKET PO (05:23)
[2021-06-04] MEDS: APIXABAN 5 MG TABLET PO ×2 (05:24→17:57)
[2021-06-04] MEDS: Acetaminophen 500 MG Tablet 1000 MG PO ×3 (05:24→20:13)
[2021-06-04] MEDS: dilTIAZem CD 120 MG Capsule PO (05:24)
[2021-06-04] MEDS: Senna/Docusate Sodium 1 Tablet PO ×2 (05:25→17:59)
[2021-06-04 05:26] VITALS: BP 128/81; PULSE 77
[2021-06-04] MEDS: Hydrocortisone 2.5% Crm 1 APPLIC TOPICAL ×2 (05:26→17:58)
[2021-06-04] MEDS: Nystatin Powder 15gm Bottle 1 APPLIC TOPICAL ×2 (05:26→17:58)
[2021-06-04] MEDS: Metoprolol(XL)Succ 25 MG Tablet PO (05:26)
[2021-06-04] MEDS: Menthol/Lanolin/Calamine/Znox 113 GM Tube 1 APPLIC TOPICAL ×2 (05:27→17:57)
[2021-06-04 06:41] LABS: Bedside Glucose 99 mg/dL (70-110)
[2021-06-04] MEDS: metFORMIN (XR) 500 MG Tablet PO (08:54)
[2021-06-04] MEDS: Gabapentin 100 MG Capsule PO ×3 (08:54→17:57)
[2021-06-04] MEDS: Potassium Chloride Oral Tablet 10 MEQ PO (08:55)
--- NOTE | 2021-06-04 15:27 | NURSING ---
Resident and daughter, Miguelina, notified of staff member testing positive for COVID.
[2021-06-04 15:36] VITALS: BP 128/88; PULSE 73; RESP 18; TEMP 36.3; O2SAT 96
[2021-06-04 20:00] VITALS: PULSE 72; RESP 16; O2SAT 96
[2021-06-04] MEDS: Atorvastatin Calcium 20 MG Tablet PO (20:12)
[2021-06-04] MEDS: Ferrous Sulfate 325 MG Tablet PO (20:12)
[2021-06-04] MEDS: Famotidine 20 MG Tablet 40 MG PO (20:13)
[2021-06-04] MEDS: Cholecalciferol (VIT D3) 25 MCG TABLET (1,000 UNITS) PO (20:14)
[2021-06-04] MEDS: Cyanocobalamin 500 MCG Tablet 1000 MCG PO (20:14)
[2021-06-05 05:48] VITALS: BP 138/68; PULSE 76
[2021-06-05] MEDS: Acetaminophen 500 MG Tablet 1000 MG PO ×3 (05:50→21:25)
[2021-06-05] MEDS: Magnesium Chloride 64 MG Delay Rel.Tablet 128 MG PO (05:50)
[2021-06-05] MEDS: Furosemide 20 MG Tablet PO (05:50)
[2021-06-05 05:51] VITALS: PULSE 76
[2021-06-05] MEDS: APIXABAN 5 MG TABLET PO ×2 (05:51→17:30)
[2021-06-05] MEDS: dilTIAZem CD 120 MG Capsule PO (05:51)
[2021-06-05] MEDS: Metoprolol(XL)Succ 25 MG Tablet PO (05:51)
[2021-06-05] MEDS: Nystatin Powder 15gm Bottle 1 APPLIC TOPICAL ×2 (05:52→17:33)
[2021-06-05] MEDS: Menthol/Lanolin/Calamine/Znox 113 GM Tube 1 APPLIC TOPICAL ×3 (05:52→17:31)
[2021-06-05] MEDS: Hydrocortisone 2.5% Crm 1 APPLIC TOPICAL ×2 (05:54→17:32)
[2021-06-05 06:35] LABS: Bedside Glucose 100 mg/dL (70-110)
[2021-06-05] MEDS: Gabapentin 100 MG Capsule PO ×3 (08:25→17:31)
[2021-06-05] MEDS: Potassium Chloride Oral Tablet 10 MEQ PO (08:26)
[2021-06-05] MEDS: metFORMIN (XR) 500 MG Tablet PO (08:26)
--- NOTE | 2021-06-05 13:11 | CASEMGMT ---
Addendum entered by Edda Urias 06/07/21 10:34: Spoke with [facility] and they are currently not taking admissions. Provided list of [facility] SNFs with Medicare ratings. Dtr to visit pt and discuss other choices. SW to continue to follow. Addendum entered by Edda Urias 06/06/21 15:09: Left message with [facility] to follow up on referral. Original Note: Social Work Met with pt and dtr to discuss DC plans. Pt and dtr prefer pt transfer to [facility] SNF instead of home. Pt voiced feeling safe with / assistance as needed. Pt can pay privately. Dtr already has paperwork from SNF completed. Requesting physician complete paperwork. Communication to Official referral sent to SNF. IDT tentatively scheduling DC for 06/12 depending on bed availability. Pt and dtr agreeable. SW to continue for DC planning. [facility]
[2021-06-05 14:24] VITALS: BP 139/67; PULSE 78; RESP 20; TEMP 36; O2SAT 97
[2021-06-05 15:50] VITALS: PULSE 58; RESP 12; O2SAT 93
[2021-06-05] MEDS: Ferrous Sulfate 325 MG Tablet PO (21:21)
[2021-06-05] MEDS: Atorvastatin Calcium 20 MG Tablet PO (21:22)
[2021-06-05] MEDS: Famotidine 20 MG Tablet 40 MG PO (21:22)
[2021-06-05] MEDS: Cyanocobalamin 500 MCG Tablet 1000 MCG PO (21:25)
[2021-06-05] MEDS: Cholecalciferol (VIT D3) 25 MCG TABLET (1,000 UNITS) PO (21:25)
[2021-06-06 05:22] VITALS: BP 151/87; PULSE 79
[2021-06-06] MEDS: Magnesium Chloride 64 MG Delay Rel.Tablet 128 MG PO (05:22)
[2021-06-06] MEDS: Acetaminophen 500 MG Tablet 1000 MG PO ×3 (05:22→20:17)
[2021-06-06] MEDS: Metoprolol(XL)Succ 25 MG Tablet PO (05:22)
[2021-06-06] MEDS: APIXABAN 5 MG TABLET PO ×2 (05:22→16:56)
[2021-06-06] MEDS: Furosemide 20 MG Tablet PO (05:22)
[2021-06-06] MEDS: Senna/Docusate Sodium 1 Tablet PO (05:22)
[2021-06-06] MEDS: Hydrocortisone 2.5% Crm 1 APPLIC TOPICAL ×2 (05:23→16:56)
[2021-06-06] MEDS: Menthol/Lanolin/Calamine/Znox 113 GM Tube 1 APPLIC TOPICAL (05:23)
[2021-06-06] MEDS: Nystatin Powder 15gm Bottle 1 APPLIC TOPICAL ×2 (05:23→16:57)
[2021-06-06] MEDS: dilTIAZem CD 120 MG Capsule PO (05:23)
[2021-06-06 06:26] LABS: Bedside Glucose 117 mg/dL (70-110)
[2021-06-06] MEDS: metFORMIN (XR) 500 MG Tablet PO (08:09)
[2021-06-06] MEDS: Potassium Chloride Oral Tablet 10 MEQ PO (08:09)
[2021-06-06] MEDS: Gabapentin 100 MG Capsule PO ×3 (08:09→16:56)
[2021-06-06 15:27] VITALS: BP 109/67; PULSE 77; RESP 14; TEMP 36.2; O2SAT 95
[2021-06-06] MEDS: Famotidine 20 MG Tablet 40 MG PO (20:18)
[2021-06-06] MEDS: Atorvastatin Calcium 20 MG Tablet PO (20:18)
[2021-06-06] MEDS: Ferrous Sulfate 325 MG Tablet PO (20:19)
[2021-06-06] MEDS: Cyanocobalamin 500 MCG Tablet 1000 MCG PO (20:19)
[2021-06-06] MEDS: Cholecalciferol (VIT D3) 25 MCG TABLET (1,000 UNITS) PO (20:20)
[2021-06-06 21:59] VITALS: PULSE 75; RESP 12; O2SAT 98
[2021-06-07] MEDS: Menthol/Lanolin/Calamine/Znox 113 GM Tube 1 APPLIC TOPICAL ×2 (05:46→18:05)
[2021-06-07] MEDS: dilTIAZem CD 120 MG Capsule PO (05:47)
[2021-06-07] MEDS: Senna/Docusate Sodium 1 Tablet PO ×2 (05:47→18:07)
[2021-06-07] MEDS: APIXABAN 5 MG TABLET PO ×2 (05:47→18:06)
[2021-06-07] MEDS: Magnesium Chloride 64 MG Delay Rel.Tablet 128 MG PO (05:47)
[2021-06-07] MEDS: Acetaminophen 500 MG Tablet 1000 MG PO ×3 (05:47→20:25)
[2021-06-07] MEDS: Nystatin Powder 15gm Bottle 1 APPLIC TOPICAL ×2 (05:47→18:07)
[2021-06-07] MEDS: Furosemide 20 MG Tablet PO (05:47)
[2021-06-07 05:48] VITALS: BP 153/70; PULSE 91
[2021-06-07] MEDS: Metoprolol(XL)Succ 25 MG Tablet PO (05:48)
[2021-06-07] MEDS: Hydrocortisone 2.5% Crm 1 APPLIC TOPICAL ×2 (05:48→18:08)
[2021-06-07 05:53] LABS: Absolute Lymphocyte Count 1.83 X10^3/uL (0.83-4.51); Absolute Neutrophil Count 4.3 X10^3/uL (2.0-7.7); Basophil# 0.07 X10^3/uL; Basophil% 0.9 % (0-1); Eosinophil# 0.32 X10^3/uL; Eosinophils% 4.3 % (0-5); Hematocrit 37.1 % (37-47); Hemoglobin 11.3 g/dL (12.0-15.0); Lymphocyte # 1.83 X10^3/ul (0.83-4.51); Lymphocyte % 24.7 % (19-41); Mean Corp Hgb Conc 30.5 g/dL (32-36); Mean Corpuscular Hgb 27.2 pg (27.0-32.0); Mean Corpuscular Volume 89.2 fL (81-99); Mean Platelet Vol. 9.1 fl (6.2-12.0); Monocyte# 0.88 X10^3/uL; Monocyte% 11.9 % (0-10); NRBC Flagged by Analyzer 0 % (0-5); Neutrophil # 4.27 X10^3/uL (2.7-7.7); Neutrophil % 57.8 % (47-70); Platelet Count 409 K/mm3 (150-450); RBC Distribution Width CV 16.2 % (11.6-14.6); Red Blood Count 4.16 M/mm3 (4.2-5.4); White Blood Count 7.4 K/mm3 (4.4-11.0)
[2021-06-07 06:26] LABS: Bedside Glucose 100 mg/dL (70-110)
[2021-06-07 06:53] LABS: Anion Gap 5 (5-15); BUN 29 mg/dL (7-18); BUN/Creat Ratio 31.5 RATIO (10-20); Calcium,Total 10.3 mg/dL (8.5-10.1); Chloride 112 mmol/L (98-107); Creatinine, Serum 0.92 mg/dL (0.55-1.02); EST Glomerular Filtration Rate 62 mL/min (>60); Est Glom Filt Rate - Afr Amer 75 mL/min (>60); Estimated Creatinine Clearance 42.42 ml/min; Glucose 95 mg/dL (74-106); Potassium 4.8 mmol/L (3.5-5.1); Sodium Level 141 mmol/L (136-145)
[2021-06-07] MEDS: metFORMIN (XR) 500 MG Tablet PO (08:01)
[2021-06-07] MEDS: Gabapentin 100 MG Capsule PO ×3 (08:01→18:05)
[2021-06-07] MEDS: Potassium Chloride Oral Tablet 10 MEQ PO (08:02)
[2021-06-07 13:37] VITALS: BP 118/67; PULSE 76; RESP 16; TEMP 36.3; O2SAT 97
[2021-06-07] MEDS: Atorvastatin Calcium 20 MG Tablet PO (20:25)
[2021-06-07] MEDS: Famotidine 20 MG Tablet 40 MG PO (20:25)
[2021-06-07] MEDS: Ferrous Sulfate 325 MG Tablet PO (20:25)
[2021-06-07] MEDS: Cholecalciferol (VIT D3) 25 MCG TABLET (1,000 UNITS) PO (20:26)
[2021-06-07] MEDS: Cyanocobalamin 500 MCG Tablet 1000 MCG PO (20:26)
[2021-06-08] MEDS: Menthol/Lanolin/Calamine/Znox 113 GM Tube 1 APPLIC TOPICAL ×2 (04:26→17:11)
[2021-06-08] MEDS: APIXABAN 5 MG TABLET PO ×2 (04:27→17:10)
[2021-06-08] MEDS: dilTIAZem CD 120 MG Capsule PO (04:27)
[2021-06-08] MEDS: Magnesium Chloride 64 MG Delay Rel.Tablet 128 MG PO (04:27)
[2021-06-08] MEDS: Furosemide 20 MG Tablet PO (04:27)
[2021-06-08] MEDS: Hydrocortisone 2.5% Crm 1 APPLIC TOPICAL ×2 (04:27→17:09)
[2021-06-08 04:28] VITALS: BP 151/97; PULSE 94
[2021-06-08] MEDS: Senna/Docusate Sodium 1 Tablet PO ×2 (04:28→17:10)
[2021-06-08] MEDS: Metoprolol(XL)Succ 25 MG Tablet PO (04:28)
[2021-06-08] MEDS: Acetaminophen 500 MG Tablet 1000 MG PO ×3 (04:28→20:38)
[2021-06-08] MEDS: Nystatin Powder 15gm Bottle 1 APPLIC TOPICAL ×2 (04:28→17:10)
[2021-06-08 06:35] LABS: Bedside Glucose 109 mg/dL (70-110)
[2021-06-08] MEDS: Potassium Chloride Oral Tablet 10 MEQ PO (08:08)
[2021-06-08] MEDS: metFORMIN (XR) 500 MG Tablet PO (08:08)
[2021-06-08] MEDS: Gabapentin 100 MG Capsule PO ×3 (08:09→17:10)
--- NOTE | 2021-06-08 13:05 | NURSING ---
Addendum entered by Erin Palacios 06/11/21 11:43: Talked to a different workforce services representative from [employer] and she said that monitor strips have not been sent yet but a shipping label has been made and it is addressed to residents home and she should receive them at home within this week. Addendum entered by Erin Palacios 06/11/21 11:37: Notified [employer] and they state that shipment was sent yesterday . They said that we should receive monitor strips tomorrow or Friday. Original Note: notified [email or web address] regarding pt not receiving her heart monitor strips that were requested to be mailed here to TCU. They are going to overnight 10 strips to TCU
[2021-06-08 14:33] VITALS: BP 116/49; PULSE 83; RESP 16; TEMP 36.4; O2SAT 97
[2021-06-08 20:25] VITALS: O2SAT 97
[2021-06-08] MEDS: Famotidine 20 MG Tablet 40 MG PO (20:37)
[2021-06-08] MEDS: Atorvastatin Calcium 20 MG Tablet PO (20:38)
[2021-06-08] MEDS: Ferrous Sulfate 325 MG Tablet PO (20:38)
[2021-06-08] MEDS: Cyanocobalamin 500 MCG Tablet 1000 MCG PO (20:38)
[2021-06-08] MEDS: Cholecalciferol (VIT D3) 25 MCG TABLET (1,000 UNITS) PO (20:38)
[2021-06-09 05:55] VITALS: BP 138/74; PULSE 92
[2021-06-09] MEDS: APIXABAN 5 MG TABLET PO ×2 (05:55→16:59)
[2021-06-09] MEDS: Metoprolol(XL)Succ 25 MG Tablet PO (05:55)
[2021-06-09] MEDS: dilTIAZem CD 120 MG Capsule PO (05:55)
[2021-06-09] MEDS: Furosemide 20 MG Tablet PO (05:56)
[2021-06-09] MEDS: Nystatin Powder 15gm Bottle 1 APPLIC TOPICAL ×2 (05:56→16:57)
[2021-06-09] MEDS: Senna/Docusate Sodium 1 Tablet PO (05:56)
[2021-06-09] MEDS: Acetaminophen 500 MG Tablet 1000 MG PO ×3 (05:56→22:42)
[2021-06-09] MEDS: Polyethylene Glycol 3350 17 GM PACKET PO (05:56)
[2021-06-09] MEDS: Magnesium Chloride 64 MG Delay Rel.Tablet 128 MG PO (05:56)
[2021-06-09] MEDS: Hydrocortisone 2.5% Crm 1 APPLIC TOPICAL ×2 (05:57→16:59)
[2021-06-09] MEDS: Menthol/Lanolin/Calamine/Znox 113 GM Tube 1 APPLIC TOPICAL ×2 (06:00→16:54)
[2021-06-09 06:31] LABS: Bedside Glucose 94 mg/dL (70-110)
[2021-06-09] MEDS: metFORMIN (XR) 500 MG Tablet PO (08:28)
[2021-06-09] MEDS: Gabapentin 100 MG Capsule PO ×4 (08:28→16:58)
[2021-06-09] MEDS: Potassium Chloride Oral Tablet 10 MEQ PO (08:28)
[2021-06-09 14:51] VITALS: BP 116/56; PULSE 90; RESP 20; TEMP 36.4; O2SAT 98
[2021-06-09] MEDS: Cyanocobalamin 500 MCG Tablet 1000 MCG PO (22:41)
[2021-06-09] MEDS: Famotidine 20 MG Tablet 40 MG PO (22:42)
[2021-06-09] MEDS: Atorvastatin Calcium 20 MG Tablet PO (22:43)
[2021-06-09] MEDS: Ferrous Sulfate 325 MG Tablet PO (22:43)
[2021-06-09] MEDS: Cholecalciferol (VIT D3) 25 MCG TABLET (1,000 UNITS) PO (22:44)
[2021-06-10] MEDS: Magnesium Chloride 64 MG Delay Rel.Tablet 128 MG PO (05:34)
[2021-06-10] MEDS: Acetaminophen 500 MG Tablet 1000 MG PO ×3 (05:34→22:51)
[2021-06-10 05:35] VITALS: BP 153/64; PULSE 83
[2021-06-10] MEDS: Furosemide 20 MG Tablet PO (05:35)
[2021-06-10] MEDS: Metoprolol(XL)Succ 25 MG Tablet PO (05:35)
[2021-06-10] MEDS: APIXABAN 5 MG TABLET PO ×2 (05:35→17:18)
[2021-06-10] MEDS: dilTIAZem CD 120 MG Capsule PO (05:36)
[2021-06-10] MEDS: Menthol/Lanolin/Calamine/Znox 113 GM Tube 1 APPLIC TOPICAL ×2 (05:36→17:17)
[2021-06-10] MEDS: Nystatin Powder 15gm Bottle 1 APPLIC TOPICAL ×2 (05:37→17:17)
[2021-06-10] MEDS: Hydrocortisone 2.5% Crm 1 APPLIC TOPICAL ×2 (05:37→17:18)
[2021-06-10 05:44] VITALS: RESP 16; TEMP 36.6; O2SAT 98
[2021-06-10 06:35] LABS: Bedside Glucose 119 mg/dL (70-110)
[2021-06-10] MEDS: metFORMIN (XR) 500 MG Tablet PO (08:30)
[2021-06-10] MEDS: Potassium Chloride Oral Tablet 10 MEQ PO (08:30)
[2021-06-10 13:38] VITALS: BP 123/66; PULSE 85; RESP 18; TEMP 36.2; O2SAT 96
[2021-06-10] MEDS: Gabapentin 100 MG Capsule PO ×2 (13:40→17:18)
[2021-06-10] MEDS: Atorvastatin Calcium 20 MG Tablet PO (22:50)
[2021-06-10] MEDS: Cyanocobalamin 500 MCG Tablet 1000 MCG PO (22:50)
[2021-06-10] MEDS: Cholecalciferol (VIT D3) 25 MCG TABLET (1,000 UNITS) PO (22:51)
[2021-06-10] MEDS: Famotidine 20 MG Tablet 40 MG PO (22:51)
[2021-06-10] MEDS: Ferrous Sulfate 325 MG Tablet PO (22:52)
[2021-06-11 06:34] VITALS: BP 133/83; PULSE 74
[2021-06-11] MEDS: Metoprolol(XL)Succ 25 MG Tablet PO (06:34)
[2021-06-11] MEDS: Magnesium Chloride 64 MG Delay Rel.Tablet 128 MG PO (06:34)
[2021-06-11] MEDS: Gabapentin 100 MG Capsule PO ×3 (06:34→16:59)
[2021-06-11] MEDS: Furosemide 20 MG Tablet PO (06:35)
[2021-06-11] MEDS: Acetaminophen 500 MG Tablet 1000 MG PO ×3 (06:35→20:08)
[2021-06-11] MEDS: APIXABAN 5 MG TABLET PO ×2 (06:35→16:59)
[2021-06-11] MEDS: dilTIAZem CD 120 MG Capsule PO (06:35)
[2021-06-11 06:36] LABS: Bedside Glucose 108 mg/dL (70-110)
[2021-06-11] MEDS: Nystatin Powder 15gm Bottle 1 APPLIC TOPICAL ×2 (06:37→17:00)
[2021-06-11] MEDS: Menthol/Lanolin/Calamine/Znox 113 GM Tube 1 APPLIC TOPICAL ×2 (06:39→17:00)
--- NOTE | 2021-06-11 06:42 | NURSING ---
Hytone cream to be applied to back after ADL this am. Will report to oncoming nurse.
[2021-06-11] MEDS: Potassium Chloride Oral Tablet 10 MEQ PO (08:24)
[2021-06-11] MEDS: metFORMIN (XR) 500 MG Tablet PO (08:25)
[2021-06-11] MEDS: Hydrocortisone 2.5% Crm 1 APPLIC TOPICAL ×2 (09:28→17:00)
--- NOTE | 2021-06-11 09:42 | CASEMGMT ---
Social Work Spoke with pt's [facility] and [facility] - both agreeable to DC 06/12 as planned. [facility]. Dtr agreeable. Referral made for PT/OT. No DME needs. Dtr to transport. Sent updated clinicals to [facility] per her request. Plan: DC to [facility] 06/12, [facility] PT/OT [facility]
[2021-06-11 10:20] VITALS: PULSE 86; RESP 18; O2SAT 98
[2021-06-11 16:00] VITALS: BP 129/65; PULSE 84; RESP 22; TEMP 36.3; O2SAT 97
--- NOTE | 2021-06-11 19:40 | PCM.DC.SUM ---
Providers Date of Admission: 05/16/21 Primary Care Physician: Dr. Balwinder Au MD Reason For Visit: WORSENING DEBILITY, UTI Diagnosis Discharge Diagnosis (1) Debility: Status: Acute Code(s): R53.81 - Other malaise (2) Syncope: Status: Acute Code(s): R55 - Syncope and collapse (3) Atrial fibrillation with rapid ventricular response: Status: Acute Code(s): I48.91 - Unspecified atrial fibrillation (4) Urinary tract infection: Status: Acute Code(s): N39.0 - Urinary tract infection, site not specified (5) Breast cancer: Status: Acute Code(s): C50.919 - Malignant neoplasm of unspecified site of unspecified female breast (6) Hypertension: Status: Chronic Code(s): I10 - Essential (primary) hypertension (7) Diabetes mellitus: Status: Acute Code(s): E11.9 - Type 2 diabetes mellitus without complications (8) Hyperlipidemia: Status: Acute Code(s): E78.5 - Hyperlipidemia, unspecified (9) Hypomagnesemia: Status: Acute Code(s): E83.42 - Hypomagnesemia (10) Gastroesophageal reflux disease: Status: Acute Code(s): K21.9 - Gastro-esophageal reflux disease without esophagitis (11) Hypokalemia: Status: Acute Code(s): E87.6 - Hypokalemia (12) Edema: Status: Acute Code(s): R60.9 - Edema, unspecified Medications at Discharge Home Medications apixaban 5 mg tablet 5 mg PO BID 11/30/18 atorvastatin 20 mg tablet 20 mg PO QHS 11/30/18 glipizide 5 mg tablet, extended release 24 hr 5 mg PO DAILY 11/30/18 magnesium oxide 400 mg PO DAILY cap 11/30/18 metformin 500 mg tablet,extended release 24hr 500 mg PO BID tab 11/30/18 diltiazem HCl 120 mg PO DAILY 02/04/21 furosemide 20 mg PO DAILY 02/04/21 potassium chloride 10 meq PO DAILY 02/04/21 cholecalciferol (vitamin D3) [Vitamin D3] 25 mcg PO QHS 05/13/21 cyanocobalamin (vitamin B-12) 1,000 mcg PO QHS 05/13/21 famotidine 40 mg PO QHS 05/13/21 ferrous sulfate [Iron (ferrous sulfate)] 325 mg PO QHS 05/13/21 metoprolol succinate 25 mg PO DAILY 05/16/21 gabapentin 100 mg PO TIDCM 30 Days #90 cap 06/11/21 Hospital Course Operations None Procedures None Summary of Care Provided Minutes Spent on Discharge: 35 Hospital Course: 80 year old female with below past medical history hospitalized for fall, syncope, complicated by K. Pneumoniae urinary tract infection, admitted to TCU with debility, here for rehabilitation, strengthening, prior to discharge home alone. Discharge to [facility] 06/12/2021, [facility] PT/OT. Physical Exam Const alert and oriented x3 General Appearance: cooperative HEENT normocephalic Eyes PERRL and EOMs intact bilaterally Neck supple, no JVD and no carotid bruits Resp normal respiratory effort, normal air movement and clear to auscultation bilaterally Cardio regular rate and regular rhythm GI normal to inspection, nondistended, normoactive bowel sounds, non-tender and non-distended Extremity normal capillary refill General Extremity: Negative for edema Skin no rashes or lesions noted General Skin Exam: no breakdown Psych affect normal Appearance: appropriate Weight / BMI Weight Weight: 95.436 kg Body Mass Index (BMI) 35.2 ABG / Lab / Microbiology Data Result Diagrams: 06/07/21 05:40 06/07/21 05:40 Laboratory: Laboratory Results - last 24 hr 06/11/21 06:22: POC Glucose 108 D/C Instructions Discharge Diet: No restrictions Discharge Activity: Return to Normal Activity, May Shower and Use Walker Weight Bearing Status: Weight bearing as tolerated Call your doctor if you observe: Fever of 101 or Higher, Inability to urinate, Inability to have a bowel movement, Shortness of breath, Dizziness, Fainting spells, Swelling in the ankles, Chest pain and Uncontrolled pain Additional Instructions: Discharge to [facility] 06/12/2021, [facility] PT/OT. Meaningful Use Info Meaningful Use Diagnoses (Choose all that apply): None applicable Discharge Plan Admission Admit Date/Time: 05/16/21 18:20 Primary Reason for Your Visit: Debility. Attending Provider: Josue Flores Chi Primary Care Provider: Balwinder Au Instructions Additional Instructions / Restrictions: Discharge to [facility] 06/12/2021, [facility] PT/OT. Discharge Orders/Prescriptions Prescriptions: New gabapentin 100 mg Capsule 100 mg PO TIDCM 30 Days Qty: 90 RF: 0 Continued magnesium oxide 400 mg capsule 400 mg PO DAILY RF: 0 glipizide 5 mg tablet extended release 24hr 5 mg PO DAILY RF: 0 metformin 500 mg tablet extended release 24hr 500 mg PO BID RF: 0 Eliquis 5 mg tablet 5 mg PO BID RF: 0 atorvastatin 20 mg tablet 20 mg PO QHS RF: 0 potassium chloride 10 mEq tablet extended release 10 meq PO DAILY RF: 0 diltiazem HCl 120 mg capsule,extended release 24 hr 120 mg PO DAILY RF: 0 furosemide 20 mg Tablet 20 mg PO DAILY RF: 0 famotidine 40 mg tablet 40 mg PO QHS RF: 0 cyanocobalamin (vitamin B-12) 1,000 mcg Tablet 1,000 mcg PO QHS RF: 0 ferrous sulfate [Iron (ferrous sulfate)] 325 mg (65 mg iron) Tablet 325 mg PO QHS RF: 0 cholecalciferol (vitamin D3) [Vitamin D3] 25 mcg (1,000 unit) Capsule 25 mcg PO QHS RF: 0 metoprolol succinate 25 mg tablet extended release 24 hr 25 mg PO DAILY RF: 0 Referrals / Follow Up: Balwinder Au MD [Primary Care Provider] - (Within one week of discharge) Disposition Disposition (needs filled in before D/C Order can be placed): Assisted Living
--- NOTE | 2021-06-11 19:46 | PCM.TXEXTCAR ---
Diet 05/17/21 16:12 Diet: Carbohydrate Controlled Dietary Modifications:: Cardiac / Heart Healthy Is pt able to select menu?: Yes Routine Orders/Code Status Suppository Type: Dulcolax 10mg Suppository Frequency: Daily PRN Code Status: DNRCC-A (No intubation.) Wound(s) Left buttock: Wound Type: Abrasion Top of right foot: Wound Type: Abrasion Therapies Weight Bearing: Weight bearing as tolerated Extremity Affected:: Bilateral Lower Physical Therapy: Eval and Treat Occupational Therapy: Eval and Treat Problem/Diagnosis (1) Debility: Status: Acute (2) Syncope: Status: Acute (3) Atrial fibrillation with rapid ventricular response: Status: Acute (4) Urinary tract infection: Status: Acute (5) Breast cancer: Status: Acute (6) Hypertension: Status: Chronic (7) Diabetes mellitus: Status: Acute (8) Hyperlipidemia: Status: Acute (9) Hypomagnesemia: Status: Acute (10) Gastroesophageal reflux disease: Status: Acute (11) Hypokalemia: Status: Acute (12) Edema: Status: Acute Allergies/Procedures Done in Hospital Allergies Penicillins Adverse Reaction (Verified 05/13/21 09:37) Unknown Procedures: None Type of Care/Length of Stay Estimated LOS: More Than 30 Days Type of Care Needed: Long Term/Assisted Living Rehab Potential: Fair Prognosis: Fair Additional Orders/Day of Discharge Day of Discharge: 06/12/21 Dietary and Speech Recommendations Dietitian Recommendations/Changes: will continue carbohydrate controlled, cardiac diet d/t pmhx Discharge Plan Admission Admit Date/Time: 05/16/21 18:20 Primary Reason for Your Visit: Debility. Attending Provider: Josue Flores Chi Primary Care Provider: Balwinder Au Instructions Additional Instructions / Restrictions: Discharge to [facility] 06/12/2021, [facility] PT/OT. Discharge Orders/Prescriptions Prescriptions: New gabapentin 100 mg Capsule 100 mg PO TIDCM 30 Days Qty: 90 RF: 0 Continued magnesium oxide 400 mg capsule 400 mg PO DAILY RF: 0 glipizide 5 mg tablet extended release 24hr 5 mg PO DAILY RF: 0 metformin 500 mg tablet extended release 24hr 500 mg PO BID RF: 0 Eliquis 5 mg tablet 5 mg PO BID RF: 0 atorvastatin 20 mg tablet 20 mg PO QHS RF: 0 potassium chloride 10 mEq tablet extended release 10 meq PO DAILY RF: 0 diltiazem HCl 120 mg capsule,extended release 24 hr 120 mg PO DAILY RF: 0 furosemide 20 mg Tablet 20 mg PO DAILY RF: 0 famotidine 40 mg tablet 40 mg PO QHS RF: 0 cyanocobalamin (vitamin B-12) 1,000 mcg Tablet 1,000 mcg PO QHS RF: 0 ferrous sulfate [Iron (ferrous sulfate)] 325 mg (65 mg iron) Tablet 325 mg PO QHS RF: 0 cholecalciferol (vitamin D3) [Vitamin D3] 25 mcg (1,000 unit) Capsule 25 mcg PO QHS RF: 0 metoprolol succinate 25 mg tablet extended release 24 hr 25 mg PO DAILY RF: 0 Referrals / Follow Up: Balwinder Au MD [Primary Care Provider] - (Within one week of discharge) Disposition Disposition (needs filled in before D/C Order can be placed): Assisted Living
[2021-06-11] MEDS: Famotidine 20 MG Tablet 40 MG PO (20:07)
[2021-06-11] MEDS: Atorvastatin Calcium 20 MG Tablet PO (20:07)
[2021-06-11] MEDS: Ferrous Sulfate 325 MG Tablet PO (20:08)
[2021-06-11] MEDS: Cholecalciferol (VIT D3) 25 MCG TABLET (1,000 UNITS) PO (20:08)
[2021-06-11] MEDS: Cyanocobalamin 500 MCG Tablet 1000 MCG PO (20:08)
[2021-06-12] MEDS: Acetaminophen 500 MG Tablet 1000 MG PO (06:34)
[2021-06-12 06:35] VITALS: PULSE 69
[2021-06-12 06:35] LABS: Bedside Glucose 111 mg/dL (70-110)
[2021-06-12] MEDS: Metoprolol(XL)Succ 25 MG Tablet PO (06:35)
[2021-06-12] MEDS: APIXABAN 5 MG TABLET PO (06:35)
[2021-06-12] MEDS: Furosemide 20 MG Tablet PO (06:35)
[2021-06-12] MEDS: Magnesium Chloride 64 MG Delay Rel.Tablet 128 MG PO (06:35)
[2021-06-12] MEDS: dilTIAZem CD 120 MG Capsule PO (06:35)
[2021-06-12] MEDS: Nystatin Powder 15gm Bottle 1 APPLIC TOPICAL (06:36)
[2021-06-12] MEDS: Menthol/Lanolin/Calamine/Znox 113 GM Tube 1 APPLIC TOPICAL (06:36)
[2021-06-12] MEDS: Hydrocortisone 2.5% Crm 1 APPLIC TOPICAL (06:37)
[2021-06-12 06:41] VITALS: BP 132/54; PULSE 69; RESP 16; TEMP 36; O2SAT 96
[2021-06-12] MEDS: Potassium Chloride Oral Tablet 10 MEQ PO (08:01)
[2021-06-12] MEDS: metFORMIN (XR) 500 MG Tablet PO (08:02)
[2021-06-12] MEDS: Gabapentin 100 MG Capsule PO (08:02)
[2021-06-12 09:03] VITALS: PULSE 81; RESP 16; O2SAT 97
--- NOTE | 2021-06-12 09:30 | NURSING ---
report called to [facility] in [place], spoke to Rebecca.
== END 2021-06-12 10:54 | disposition home health service (06) | DRG 690 ==
PROVIDERS: Admitting Provider Family Medicine Geriatric Medicine; PCP Family Medicine; Visit Provider Family Medicine Geriatric Medicine
DX: N39.0 Urinary tract infection, site not specified (principal); I48.19 Other persistent atrial fibrillation; Z23 Encounter for immunization; B96.1 Klebsiella pneumoniae [K. pneumoniae] as the cause of diseases classified elsewhere; E66.01 Morbid (severe) obesity due to excess calories; Z68.35 Body mass index [BMI] 35.0-35.9, adult; K21.9 Gastro-esophageal reflux disease without esophagitis; E78.5 Hyperlipidemia, unspecified; I10 Essential (primary) hypertension; E55.9 Vitamin D deficiency, unspecified; D50.9 Iron deficiency anemia, unspecified; E87.6 Hypokalemia; E11.9 Type 2 diabetes mellitus without complications; Z79.01 Long term (current) use of anticoagulants; Z79.84 Long term (current) use of oral hypoglycemic drugs; Z79.899 Other long term (current) drug therapy
CPT/HCPCS: 0034A; 36415; 80048; 82962; 85025; 87635; 91303; 92507; 92523; 97110; 97116; 97150; 97162; 97166; 97530; 97535; 97802; U0005; U0003

== ENCOUNTER 2023-06-14 08:43 | Emergency (ER) | payer MEDICARE, BC, SELFPAY ==
[2023-06-14 08:44] VITALS: BP 153/135; PULSE 107; RESP 18; TEMP 37; O2SAT 95; BMI 35.2
--- NOTE | 2023-06-14 08:45 | CT_ITS ---
EXAM: CT HEAD WITHOUT INTRAVENOUS CONTRAST CLINICAL INDICATION: Trauma injury. TECHNIQUE: Multiple axial images were obtained of the head without intravenous contrast. This CT exam was performed using one or more of the following dose reduction techniques: automated exposure control, adjustment of the mA and/or kV according to patient size, and/or use of iterative reconstruction technique. RADIATION DOSE: CTDIvol = 44.99 mGy, DLP = 745.49 mGy-cm COMPARISON: CT head without contrast 02/04/2021. FINDINGS: BRAIN AND EXTRA-AXIAL SPACES: Anterior periventricular white matter hypodensities are chronic white matter ischemic changes. Moderate cerebral atrophy, central and cortical. No intracranial mass or mass effect. Posterior fossa structures are unremarkable. No hydrocephalus. Basal cisterns are patent. No intracranial bleeding. BONES/JOINTS: Unremarkable. No discrete lytic or blastic abnormalities. SOFT TISSUES: Small right anterior frontal soft tissue scalp hematoma with air bubble from penetrating trauma injury. SINUSES: Unremarkable as visualized. Clear. MASTOID AIR CELLS: Unremarkable. Clear. ORBITS: Visualized globes, extraocular muscles, optic nerves and retrobulbar fat appear unremarkable. CT/Brain/Head without Contrast IMPRESSION: 1. Small right anterior frontal soft tissue scalp hematoma containing air bubble from penetrating trauma injury. 2. No CT evidence of intracranial bleeding or acute intracranial abnormality. 3. Interval improvement of the large left anterior frontal scalp hematoma extending to overlie the left zygoma when compared to 02/04/2021. Electronically Signed: Gene Álvarez MD at 9:56 EST ,
--- NOTE | 2023-06-14 08:45 | EDS_ITS ---
HPI HPI - Fall History of Present Illness Chief Complaint: Fall Informant: patient and EMS Narrative Narrative: EMS brings in this patient from home who fell this morning after getting up and grabbing her walker, and states that it slipped out from underneath of her causing her to fall next to her bed, hitting her forehead on the metal frame of the bed, sustaining a laceration. She was unable to get up but states that she never is able to get up if she does not have help and is on the floor. She denies any recent illness. Denies any prodromal symptoms. She is on Eliquis because of a history of atrial fibrillation. She has a headache, she does not have pain anywhere else other than the forehead/head. She denies any other injury. She denies neck pain, back pain, focal neurologic symptoms, changes in her vision. [facility] Medical History (Updated 06/14/23 @ 10:[address] Onofre Martines MD) Adult failure to thrive Atrial fibrillation with rapid ventricular response Class 2 severe obesity due to excess calories with serious comorbidity and body mass index (BMI) of 35.0 to 35.9 in adult Essential (primary) hypertension Falls Frequent falls GERD (gastroesophageal reflux disease) History of breast cancer Hyperlipidemia Leukocytosis New onset atrial fibrillation (10/2018) Orthostatic hypotension (01/06/20) Persistent atrial fibrillation Right bundle branch block (RBBB) Syncope (01/06/20) Type 2 diabetes mellitus Home Medications apixaban 5 mg tablet (Eliquis) 5 mg PO BID Blood Thinner 11/30/18 [History Last Taken 01/05/20] atorvastatin 20 mg tablet 20 mg PO QHS Cholesterol 11/30/18 [History Last Taken 01/05/20] glipizide 5 mg tablet, extended release 24 hr 5 mg PO DAILY Diabetes 11/30/18 [History Last Taken 01/05/20] magnesium oxide 400 mg PO DAILY Supplement 11/30/18 [History Last Taken 01/05/20] metformin 500 mg tablet,extended release 24hr (osmotic) 500 mg PO BID Diabetes 11/30/18 [History Last Taken 01/05/20] diltiazem HCl 120 mg capsule,24 hr,extended release 120 mg PO DAILY BP 02/04/21 [History Last Taken Unknown] furosemide 20 mg tablet 20 mg PO DAILY Heart Health 02/04/21 [History Last Taken Unknown] potassium chloride 10 mEq tablet,extended release 10 meq PO DAILY Supplement 02/04/21 [History Last Taken Unknown] cholecalciferol (vitamin D3) 25 mcg (1,000 unit) capsule (Vitamin D3) 25 mcg PO QHS Supplement 05/13/21 [History Last Taken Unknown] cyanocobalamin (vitamin B-12) 1,000 mcg tablet 1,000 mcg PO QHS Supplement 05/13/21 [History Last Taken Unknown] famotidine 40 mg tablet 40 mg PO QHS GERD 05/13/21 [History Last Taken Unknown] ferrous sulfate 325 mg (65 mg iron) tablet (Iron (ferrous sulfate)) 325 mg PO QHS Supplement 05/13/21 [History Last Taken Unknown] metoprolol succinate 25 mg tablet,extended release 24 hr 25 mg PO DAILY BP 05/16/21 [History Last Taken Unknown] gabapentin 100 mg capsule 100 mg PO TIDCM 30 days #90 caps 06/11/21 [Rx Last Ta martin Unknown] Allergy/AdvReac Type Severity Reaction Status Date / Time Penicillins AdvReac Unknown Verified 06/14/23 08:47 Surgical History History of mastectomy Hx of cholecystectomy Social History household members: none Smoking Status: Never smoker alcohol intake: never substance use type: does not use ROS ROS ED Constitutional Constitutional ED: Denies chills or fever(s) Eyes Eyes: Denies change in vision or diplopia ENT ENT ED: Reports facial pain; Denies ear pain, epistaxis or rhinorrhea Cardiovascular Cardiovascular: Denies chest pain or palpitations Respiratory/Chest Respiratory/Chest: Denies cough or dyspnea Gastrointestinal Gastrointestinal: Denies abdominal pain, diarrhea, melena, nausea or vomiting Genitourinary Genitourinary ED: Denies dysuria or hematuria Musculoskeletal Musculoskeletal: Denies back pain, extremity pain or neck pain Integumentary Reports laceration; Denies abscess, Abrasions or rash Neurologic Neurologic: Reports headache(s); Denies confusion, paresthesias or weakness EXAM Physical Exam Const Vital Signs: 06/14/23 08:44 06/14/23 09:05 Temperature 98.6 F Temperature Source Oral Pulse Rate 107 H Respiratory Rate 18 Respiratory Effort Normal Non-Labored Respiratory Depth Normal Respiratory Pattern Normal Blood Pressure 153/135 H Blood Pressure Mean 141 Pulse Ox 95 Oxygen Delivery Method Room Air Room Air Positive well nourished, well developed and obese General Appearance ED: well developed and NAD Nutritional Appearance: obese HEENT Reports TM's clear and nasal mucous membranes and turbinates normal HEENT Narrative: Trauma tenderness hematoma laceration mid forehead. No crepitance or depression. Laceration is down to the frontal bone which is visible and intact. trauma Face and Sinus: Negative for facial tenderness Tympanic Membrane ED: Yes TM's clear Eyes PERRL and EOMs intact bilaterally Visual Acuity: other Other Details: no entrapment or pain with extraocular movements Neck full ROM and supple General: Negative for tenderness Chest Wall inspection of chest normal and palpation of chest normal Chest: symmetrical chest wall rise; Negative for crepitus or tenderness Resp normal respiratory effort and clear to auscultation bilaterally Percussion: other equal BS bilat Cardio no murmurs Rhythm: abnormal rhythm irregularly irregular GI normal to inspection, nondistended, normoactive bowel sounds, soft to palpation and non-tender Back/Spine normal ROM Cervical Spine: Negative for cervical spine tenderness Thoracic Spine / Upper Back: Negative for thoracic spinal tenderness Lumbar Spine / Lower Back: Negative for lumbar spinal tenderness Extremity normal to inspection and full ROM General Extremety ED: Negative for tenderness Neuro oriented x3, CN's II-XII intact bilaterally, moves all extremities, no focal motor deficits and no sensory deficits noted [place] Coma Scale: document GCS findings Spontaneous Obeys Commands Oriented 15 Sensorium / Orientation: awake and alert Psych mental status grossly normal and thought process normal Skin Skin Narrative: 8 cm full-thickness linear clean appearing laceration to the mid forehead see above. No other signs of trauma. Lesions: no lesions Rashes: no rashes MDM MDM MDM Narrative Medical decision making narrative: CT of the head was obtained in order to rule out intracranial injury, I reviewed the images and report which I agree with, negative for anything acute. Laceration was repaired. Patient does not have any other injuries. Plan will be for discharge home, she states she has been at home by herself and can continue to be. With lido with epinephrine and suture repair, hemostasis was obtained with regards to the laceration. Estimated blood loss was minimal. Radiography Diagnostic Testing: Clinical Impression(s) from Imaging Studies Brain CT 06/14/23 08:45 IMPRESSION: 1. Small right anterior frontal soft tissue scalp hematoma containing air bubble from penetrating trauma injury. 2. No CT evidence of intracranial bleeding or acute intracranial abnormality. 3. Interval improvement of the large left anterior frontal scalp hematoma extending to overlie the left zygoma when compared to 02/04/2021. Electronically Signed: Gene Álvarez MD at 9:56 EST , Procedures Lacerations forehead: Length: 8 cm Depth: Sub Q Shape: Linear Prep: Sterile Conditions and Chlorhexadine Laceration repair: Lidocaine with epi (5cc, 1%), Local and Skin sutures Irrigated (ml): 150 Number of Sutures/[place]: 13 Suture Information: Ethilon, Simple and 6-0 Discharge Plan Triage Chief Complaint: Fall ED Provider: Onofre Martines Dx/Rx/DC Orders Clinical Impression: Forehead laceration, Fall, accidental, Closed head injury without loss of consciousness Instructions: ED Head Injury (Adult), ED Laceration, All Closures Prescriptions: No Action magnesium oxide 400 mg capsule 400 mg PO DAILY glipizide 5 mg tablet extended release 24hr 5 mg PO DAILY metformin 500 mg tablet extended release 24hr 500 mg PO BID Eliquis 5 mg tablet 5 mg PO BID atorvastatin 20 mg tablet 20 mg PO QHS potassium chloride 10 mEq tablet extended release 10 meq PO DAILY Patient Comments: TAKE 1 TABLET BY MOUTH ONCE DAILY WHEN TAKE FUROSEMIDE diltiazem HCl 120 mg capsule,extended release 24 hr 120 mg PO DAILY Patient Comments: TAKE 1 CAPSULE BY MOUTH ONCE DAILY furosemide 20 mg Tablet 20 mg PO DAILY famotidine 40 mg tablet 40 mg PO QHS cyanocobalamin (vitamin B-12) 1,000 mcg Tablet 1,000 mcg PO QHS ferrous sulfate [Iron (ferrous sulfate)] 325 mg (65 mg iron) Tablet 325 mg PO QHS cholecalciferol (vitamin D3) [Vitamin D3] 25 mcg (1,000 unit) Capsule 25 mcg PO QHS metoprolol succinate 25 mg tablet extended release 24 hr 25 mg PO DAILY gabapentin 100 mg Capsule 100 mg PO TIDCM 30 Days Qty: 90 0RF Primary Care Provider: Care Physician,No Primary Referrals: Balwinder Au MD [Non-Staff] - 7 Days for suture removal Disposition Disposition: Home, Self Care
--- NOTE | 2023-06-14 08:59 | ED.RN ---
THIS RN SPOKE WITH DAUGHTER CASSANDRA. SHE STATES TO GIVE HER A CALL WITH ANY CHANGES AND TO PICK HER UP WHEN SHE IS READY FOR DISCHARGE
[2023-06-14] MEDS: Lidocaine 1% /Epi 1:100 (20ml) 20 ML Vial INFILT (10:09)
[2023-06-14 10:46] VITALS: BP 164/95
== END 2023-06-14 11:03 | disposition home or self-care (01) ==
PROVIDERS: Emergency Provider Emergency Medicine; Visit Provider Emergency Medicine
DX: S01.81XA Laceration without foreign body of other part of head, initial encounter (principal); I48.19 Other persistent atrial fibrillation; E66.01 Morbid (severe) obesity due to excess calories; E11.9 Type 2 diabetes mellitus without complications; I10 Essential (primary) hypertension; E78.5 Hyperlipidemia, unspecified; R62.7 Adult failure to thrive; R29.6 Repeated falls; K21.9 Gastro-esophageal reflux disease without esophagitis; W01.190A Fall on same level from slipping, tripping and stumbling with subsequent striking against furniture, initial encounter; Y92.003 Bedroom of unspecified non-institutional (private) residence as the place of occurrence of the external cause; Z79.899 Other long term (current) drug therapy; Z79.84 Long term (current) use of oral hypoglycemic drugs; Z91.81 History of falling
CPT/HCPCS: 12015; 70450; 99285